=== PATIENT | male | born 1960 | race Caucasian/White ===

== ENCOUNTER 2022-02-13 09:03 | Inpatient (IN) ==
[2022-02-13] MEDS ORDERED: IOPAMIDOL 100 ML BOTTLE IV ONE (09:04)
[2022-02-13] MEDS ORDERED: ONDANSETRON 4 MG/2 ML VIAL IV ONE (09:25)
[2022-02-13] MEDS ORDERED: PANTOPRAZOLE 40 MG VIAL IV ONE (09:25)
[2022-02-13] MEDS ORDERED: PHENobarb/HYOSCY/ATROPINE/SCOP 1 DOSE BOTTLE PO ONE (09:25)
[2022-02-13] MEDS ORDERED: LACTATED RINGERS 1,000 ML IV ONE (09:26)
[2022-02-13] MEDS ORDERED: 0.9 % SODIUM CHLORIDE 1,000 ML IV ONE (09:27)
[2022-02-13] MEDS ORDERED: LORazepam 2 MG/ML VIAL IV ONE ×2 (09:30→12:18)
--- NOTE | 2022-02-13 09:30 | Emergency Department Note ---
Nausea/Vomiting/Diarrhea HPI General Chief complaint: Nausea/Vomiting/Diarrhea Stated complaint: N/V Time Seen by Provider: 02/13/22 09:18 Source: patient Mode of arrival: ambulatory History of Present Illness HPI Narrative: Narrative: 61-year-old male history of GERD on omeprazole, alcohol dependence presenting to the ED with 3 days of watery nausea vomiting diarrhea. Thinks he may have eaten something bad. Nausea and vomiting have improved but mostly watery diarrhea. Not really abdominal pain although he says he was taken some ibuprofen recently for chronic back pain and he did momentarily have a bit of upper abdominal pain after that but has since resolved. Denies a history of hepatobiliary or pancreatic disease. Does have a history of hyponatremia as well as alcohol dependence. Says he drinks about 5 beers a day. He did drink yesterday. He says he does not feel like he is in any withdrawal. He does have mild baseline tremor but he says that is chronic and not new, he thinks it could be Parkinson's or something. He is here because the persistent diarrhea he feels a bit fatigued and perhaps dehydrated. Related Data Home Medications Medication Instructions Recorded Confirmed gabapentin 300 mg capsule 300 mg PO DAILY 01/16/15 01/18/22 omeprazole 40 mg capsule,delayed 40 mg PO DAILY 01/16/15 01/18/22 release (Prilosec) baclofen 10 mg tablet 1 tab PO QID 07/06/21 01/18/22 clonidine 0.1 mg/24 hr weekly 1 patch transdermal WEEKLY 07/06/21 01/18/22 transdermal patch hydroxyzine HCl 25 mg tablet 1 tab PO TID 07/06/21 01/18/22 hydroxyzine HCl 25 mg tablet 1 tab PO TID 07/06/21 01/18/22 irbesartan 300 mg tablet 1 tab PO QDAY 07/06/21 01/18/22 ketorolac 30 mg/mL (1 mL) 60 mg IM PRN PRN Pain 07/06/21 01/18/22 injection solution labetalol 100 mg tablet 1 tab PO BID 07/06/21 01/18/22 ondansetron 4 mg disintegrating 1 tab PO Q6HP PRN Nausea 07/06/21 01/18/22 tablet oxycodone 10 mg tablet 1 tab PO BID 07/06/21 01/18/22 testosterone cypionate 200 mg/mL 0.5 ml IM WEEKLY 07/06/21 01/18/22 intramuscular oil triamcinolone acetonide 0.1 % 0.1 applic topical BID 07/06/21 01/18/22 topical cream duloxetine 60 mg capsule,delayed 60 mg PO QDAY 01/12/22 01/18/22 release (Cymbalta) Allergies Allergy/AdvReac Type Severity Reaction Status Date / Time No Known Drug Allergies Allergy Verified 01/12/22 08:45 Review of Systems ROS ROS Narrative: Narrative: All systems ED: reviewed and negative except as stated. [facility] Narrative Patient History Narrative: Narrative: Medical/Surgical/Family History All Active Problems (Updated 02/13/22 @ 12:33 by Freddy Ferreira DO) Acute hyponatremia (Acute) Alcohol withdrawal (Acute) Leukocytosis (Acute) Acute dehydration (Acute) Lumbar radiculopathy (Acute) Cervical spondylosis with radiculopathy (Chronic) DDD (degenerative disc disease), lumbosacral (Chronic) Lumbar stenosis with neurogenic claudication (Chronic) GERD (gastroesophageal reflux disease) (Chronic) Osteoarthritis of more than one site (Chronic) Bronchitis (Chronic) Psychiatric illness (Chronic) Vision problem (Chronic) Pneumonia (Chronic) Neck injury (Chronic) Headache (Chronic) Hearing problem (Chronic) Depression (Chronic) Concussion (Chronic) Essential hypertension (Chronic) Hypogonadism (Chronic) Posttraumatic stress disorder (Chronic) Arthritis (Chronic) Idiopathic peripheral neuropathy (Chronic) Normocytic anemia (Chronic) Chronic pain (Chronic) Community acquired pneumonia (Acute) Sepsis (Acute) Severe sepsis with acute organ dysfunction (Acute) Anxiety (Acute) Alcohol withdrawal (Acute) Acute hyponatremia (Acute) Medical History Anxiety Arthritis Bronchitis Cervical spondylosis with radiculopathy Chronic pain Community acquired pneumonia Concussion DDD (degenerative disc disease), lumbosacral Depression Essential hypertension GERD (gastroesophageal reflux disease) Headache Hearing problem Hypogonadism Idiopathic peripheral neuropathy Lumbar radiculopathy Lumbar stenosis with neurogenic claudication Neck injury Normocytic anemia Osteoarthritis of more than one site Pneumonia Posttraumatic stress disorder Psychiatric illness Sepsis Severe sepsis with acute organ dysfunction Vision problem Surgical History History of knee surgery right ACL/PCL reconstruction History of lumbar surgery discectomy x2 Family History Mother Atrial flutter Hypertension Father Heart disease Hypertension Social History Smoking Status: Never smoker and Smokeless tobacco Alcohol Intake Frequency: 2+ drinks per day Substance Use: does not use Exam Narrative Narrative: Narrative: Constitutional: normally developed, hypertensive, tachycardic but nontoxic-appearing Head: Normocephalic, atraumatic, Eyes: No Icterus, ENT: Dry mucus membranes, no tongue fasciculations Neck: Supple, Cardiac: Normal heart sounds, palpable radial pulses, Pulmonary: Normal respiratory effort. Breath sounds clear, no wheeze, rhonchi, rales, Gastrointestinal: Abdomen soft, non-distended, non-tender, negative Cardenas's Musculoskeletal: No gross deformities, well perfused Skin: warm, dry Neuro: Alert and oriented, mild hand tremors Course Vital Signs Vital signs: Vital Signs Temperature 36.2 C 02/13/22 09:08 Pulse Rate 122 H 02/13/22 09:08 Respiratory Rate 20 02/13/22 09:08 Blood Pressure 176/112 02/13/22 09:08 Pulse Oximetry (%) 100 02/13/22 09:08 Oxygen Delivery Method 02/13/22 09:08 Temperature 36.2 C 02/13/22 09:08 Pulse Rate 111 H 02/13/22 10:41 Respiratory Rate 20 02/13/22 09:08 Blood Pressure 168/120 02/13/22 10:31 Pulse Oximetry (%) 98 02/13/22 10:41 Oxygen Delivery Method 02/13/22 09:08 [facility] MDM Narrative Medical decision making narrative: Narrative: Patient with 3 days of watery nausea vomiting diarrhea, nausea vomiting mostly resolved persistent diarrhea. Appears bit dehydrated tachycardic. Work-up is initiated Does have alcohol dependence about 5 beers a day, did not drink today because of his GI symptoms. He is bit hypertensive tachycardic although not distressed. Does have mild tremors although he says those are chronic and unrelated and does not feel like he is in withdrawal, will give him 1 mg of Ativan in the meantime. Give him 1 L normal saline for tachycardia dehydration while awaiting ER work- up Did get EKG given his tachycardia, twelve-lead EKG sinus tachycardic 115 AK, QRS, QTc within normal, he has Q waves in inferior and precordial no evidence of acute ischemia or STEMI criteria Labs do show leukocytosis nonspecific at this point has been intermittently elevated in the past, Electrolytes show a acute hyponatremia 111 with a sodium of 72, normal anion gap normal renal function. LFTs bilirubin within normal, lipase slightly elevated 78 CT of the abdomen per radiology shows a small gallstone but no evidence of acute process or cholecystitis Urinalysis no infection Reevaluation patient feels a bit better, heart rate improved. Does warrant admission given his acute hyponatremia, he has had no neurologic symptoms or seizure-like activity here in the ER. Will speak with hospitalist Additionally although he has leukocytosis do not see any signs or symptoms suggestive of acute bacterial infection at this time do not feel antibiotics indicated at this time 1230: Received callback from hospitalist, accepts admission. Additionally patient says he was starting to feel slightly tremulous again so gave him 1 more milligram of Ativan. Critical Care Time Total CriticalCare time was at least 35 minutes, excluding separately reportable procedures. There was a high probability of clinically significant/life threatening deterioration in the patient's condition which required my urgent intervention. Lab Data Result diagrams: 02/13/22 09:29 02/13/22 09:29 Labs: Lab Results 02/13/22 02/13/22 02/13/22 Range/Units 09:29 09:29 11:40 WBC 18.8 H (4.5-11.0) K/mcL RBC 4.38 L (4.63-6.08) M/mcL Hgb 14.1 (13.7-17.5) g/dL Hct 36.5 L (40.1-51.0) % MCV 80.9 (80.0-100.0) fL MCH 29.2 (26.0-34.0) pg MCHC 36.1 H (31.0-36.0) g/dL RDW 12.7 (11.5-14.5) % Plt Count 298 (140-440) K/mcL MPV 9.5 (8.8-12.5) fL Immature Gran % (Auto) 1.2 H (0.0-0.5) % Neut % (Auto) 83.1 H (38.0-78.0) % Lymph % (Auto) 7.9 L (15.5-49.0) % [place] % (Auto) 6.7 (1.0-12.0) % Eos % (Auto) 0.6 (0.0-7.0) % Baso % (Auto) 0.5 (0.0-2.0) % Lymph # (Auto) 1.48 L (1.50-4.80) K/mcL [place] # (Auto) 1.26 H (0.10-0.90) K/mcL Eos # (Auto) 0.11 (0.00-0.70) K/mcL Baso # (Auto) 0.09 (0.00-0.30) K/mcL Immature Gran # 0.23 H (0.00-0.05) K/mcl Absolute Neutrophils 15.63 H (1.80-8.00) K/mcL Sodium 111 L* (133-145) mmol/L Potassium 3.4 (3.3-5.1) mmol/L Chloride 72 L (96-108) mmol/L Carbon Dioxide 28 (22-30) mmol/L Anion Gap 11.0 (8.0-16.0) BUN 3 L (8-23) mg/dL Creatinine 0.9 (0.7-1.2) mg/dL GFR Calculation 92 Glucose 133 H (70-105) mg/dL Calcium 9.0 (8.6-10.4) mg/dL Total Bilirubin 0.4 (0.1-1.0) mg/dL AST 22 (<40) U/L ALT 19 (<40) U/L Alkaline Phosphatase 164 H (39-117) U/L Total Protein 6.8 (5.9-8.4) gm/dL Albumin 4.5 (3.2-5.2) gm/dL Globulin 2.3 (2.2-3.7) gm/dL Albumin/Globulin Ratio 2.0 (1.0-2.3) Lipase 78 H (7-60) U/L Urine Color Lt. yellow Urine Appearance Clear (Clear) Urine pH 7.0 (5.0-9.0) Ur Specific [place] <= 1.005 (1.000-1.035) Urine Protein Negative (Negative) mg/dL Urine Glucose (UA) Negative (Negative) mg/dL Urine Ketones Negative (Negative) mg/dL Urine Occult Blood Negative (Negative) froilan/mcL Urine Nitrate Negative (Negative) Urine Bilirubin Negative (Negative) mg/dL Urine Urobilinogen Normal mg/dL Ur Leukocyte Esterase Negative (Negative) /uL Ur Culture Indicated? No Discharge Plan Patient/Caregiver Discharge Instructions Pt seen by [employer]EDER/PA only: No Clinical Impression: Acute hyponatremia, Alcohol withdrawal, Leukocytosis, Acute dehydration Instructions: Hyponatremia (ED) Patient Disposition: Xfer As Inpt ([facility]) Condition: Serious Follow up with: Alberto Morris DO [Primary Care Provider] - Prescriptions: No Action omeprazole [Prilosec] 40 MG capsule,delayed release(DR/EC) 40 mg PO DAILY gabapentin 300 MG capsule 300 mg PO DAILY Rx Instructions: 300mg QAM and 600mg QHS duloxetine [Cymbalta] 60 mg capsule,delayed release(DR/EC) 60 mg PO QDAY clonidine 0.1 mg/24 hr patch weekly 1 patch transdermal WEEKLY triamcinolone acetonide 0.1 % cream 0.1 applic topical BID ketorolac 30 mg/mL (1 mL) solution 60 mg IM PRN PRN (Reason: Pain) Rx Instructions: Inject IM twice weekly as directed baclofen 10 mg tablet 1 tab PO QID hydroxyzine HCl 25 mg tablet 1 tab PO TID hydroxyzine HCl 25 mg tablet 1 tab PO TID testosterone cypionate 200 mg/mL oil 0.5 ml IM WEEKLY labetalol 100 mg tablet 1 tab PO BID ondansetron 4 mg tablet,disintegrating 1 tab PO Q6HP PRN (Reason: Nausea) irbesartan 300 mg tablet 1 tab PO QDAY oxycodone 10 mg tablet 1 tab PO BID
[2022-02-13 10:38] LABS: Basophils # (Auto) 0.09 K/mcL (0.00-0.30); Basophils % (Auto) 0.5 % (0.0-2.0); Eosinophils # (Auto) 0.11 K/mcL (0.00-0.70); Eosinophils % (Auto) 0.6 % (0.0-7.0); Hematocrit 36.5 % (40.1-51.0); Hemoglobin 14.1 g/dL (13.7-17.5); Lymphocytes # (Auto) 1.48 K/mcL (1.50-4.80); Lymphocytes % (Auto) 7.9 % (15.5-49.0); Mean Cell Volume 80.9 fL (80.0-100.0); Mean Corpuscular HGB Conc 36.1 g/dL (31.0-36.0); Mean Platelet Volume 9.5 fL (8.8-12.5); Monocytes # (Auto) 1.26 K/mcL (0.10-0.90); Monocytes % (Auto) 6.7 % (1.0-12.0); Neutrophils % (Auto) 83.1 % (38.0-78.0); Platelet Count 298 K/mcL (140-440); RBC 4.38 M/mcL (4.63-6.08); Red Cell Distribution Width 12.7 % (11.5-14.5); WBC 18.8 K/mcL (4.5-11.0)
[2022-02-13 10:39] LABS: ALT/SGPT 19 U/L (<40); AST/SGOT 22 U/L (<40); Albumin 4.5 gm/dL (3.2-5.2); Alkaline Phosphatase 164 U/L (39-117); Bilirubin,Total 0.4 mg/dL (0.1-1.0); Blood Urea Nitrogen 3 mg/dL (8-23); Carbon Dioxide 28 mmol/L (22-30); Chloride 72 mmol/L (96-108); Globulin 2.3 gm/dL (2.2-3.7); Glomerular Filtration Rate 92; Glucose 133 mg/dL (70-105)
[2022-02-13 12:21] LABS: Appearance,Urine CLEAR (Clear); Bilirubin,Urine NEGATIVE (Negative); Color,Urine LT. YELLOW; Culture Indicated,Urine No; Glucose,Urine (UA) NEGATIVE (Negative); Ketones,Urine NEGATIVE (Negative); Leukocyte Esterase,Urine NEGATIVE /uL (Negative); Nitrate,Urine NEGATIVE (Negative); Protein,Urine NEGATIVE (Negative); Specific Gravity,Urine <= 1.005 (1.000-1.035); Urine Blood NEGATIVE ery/mcL (Negative); Urobilinogen,Urine Normal
--- NOTE | 2022-02-13 12:58 | Internal Med History&Physical ---
HPI History of Present Illness Patient information: Note initiated : 02/13/22 at 12:50 pm Service Date, if different from initiated Date: [] Patient: Chau Salter 61 y/o M admitted on for N/V. Chief Complaint: [] History of present illness: Mr. Salter is a 61-year-old male with a history of hypertension, depression, PTSD, GERD, degenerative disc disease, chronic back pain, high risk alcohol use Who presented to the emergency department for 3 days of nausea, vomiting and diarrhea. Patient says that the nausea and vomiting have mostly resolved but he continues to have profound watery diarrhea. He denies recent fevers chills, no sick contacts. The patient did have some mild abdominal discomfort but says that has resolved. The patient does drink 6 or more beers per day. In the emergency department, the patient was found to have a sodium level of 111. A CT abdomen pelvis with contrast was performed, report pending at the time of admission however the ED provider did receive a verbal report from the radiologist who said that it showed a gallstone but no evidence of cholecystitis and was otherwise unremarkable. Patient denies recent antibiotic use however in November 2021 he did have an upper respiratory tract infection that was treated with amoxicillin. Review of systems Constitutional: no fever, fatigue, or weight loss Eyes: no vision changes or pain Cardiovascular: no chest pain, no palpitations Respiratory: no cough or dyspnea Gastrointestinal: Positive for nausea, vomiting, diarrhea Genitourinary: no dysuria or difficulty voiding Musculoskeletal: no arthralgia or myalgia Integumentary: no skin lesion or wound Neurological: no focal weakness or numbness Psychiatric: no anxiety or depression Physical exam Head: Atraumatic, normal inspection. Eyes: normal appearance, no scleral icterus. Neck: full ROM Respiratory: no respiratory distress. Cardiovascular: Regular tachycardia, S1, S2. GI/Abdominal: soft, nontender, no guarding. Extremities: full range of motion, nontender. Neurological: CN II-XII intact, intact motor, intact sensation. Psychiatric: normal mood. Skin: warm, normal color PFSH PFSH All Active Problems (Updated 02/13/22 @ 12:33 by Freddy Ferreira DO) Acute hyponatremia (Acute) Alcohol withdrawal (Acute) Leukocytosis (Acute) Acute dehydration (Acute) Lumbar radiculopathy (Acute) Cervical spondylosis with radiculopathy (Chronic) DDD (degenerative disc disease), lumbosacral (Chronic) Lumbar stenosis with neurogenic claudication (Chronic) GERD (gastroesophageal reflux disease) (Chronic) Osteoarthritis of more than one site (Chronic) Bronchitis (Chronic) Psychiatric illness (Chronic) Vision problem (Chronic) Pneumonia (Chronic) Neck injury (Chronic) Headache (Chronic) Hearing problem (Chronic) Depression (Chronic) Concussion (Chronic) Essential hypertension (Chronic) Hypogonadism (Chronic) Posttraumatic stress disorder (Chronic) Arthritis (Chronic) Idiopathic peripheral neuropathy (Chronic) Normocytic anemia (Chronic) Chronic pain (Chronic) Community acquired pneumonia (Acute) Sepsis (Acute) Severe sepsis with acute organ dysfunction (Acute) Anxiety (Acute) Alcohol withdrawal (Acute) Acute hyponatremia (Acute) Medical History Anxiety Arthritis Bronchitis Cervical spondylosis with radiculopathy Chronic pain Community acquired pneumonia Concussion DDD (degenerative disc disease), lumbosacral Depression Essential hypertension GERD (gastroesophageal reflux disease) Headache Hearing problem Hypogonadism Idiopathic peripheral neuropathy Lumbar radiculopathy Lumbar stenosis with neurogenic claudication Neck injury Normocytic anemia Osteoarthritis of more than one site Pneumonia Posttraumatic stress disorder Psychiatric illness Sepsis Severe sepsis with acute organ dysfunction Vision problem Surgical History History of knee surgery right ACL/PCL reconstruction History of lumbar surgery discectomy x2 Family History Mother Atrial flutter Hypertension Father Heart disease Hypertension Social History (Updated 01/12/22 @ 16:05 by Emma Koehler) marital status: education level: college occupational status: disabled smoking status: Never smoker and Smokeless tobacco alcohol intake frequency: 2+ drinks per day substance use type: does not use MEDS/ALLERGIES Home Medications and Allergies Home Medications Medication Instructions Recorded Confirmed Type gabapentin 300 mg capsule 300 mg PO DAILY 01/16/15 02/13/22 History omeprazole 40 mg capsule,delayed 40 mg PO DAILY 01/16/15 02/13/22 History release (Prilosec) baclofen 10 mg tablet 1 tab PO QID 07/06/21 02/13/22 History clonidine 0.1 mg/24 hr weekly 1 patch transdermal WEEKLY 07/06/21 02/13/22 History transdermal patch hydroxyzine HCl 25 mg tablet 1 tab PO TID 07/06/21 02/13/22 History irbesartan 300 mg tablet 1 tab PO QDAY 07/06/21 02/13/22 History ketorolac 30 mg/mL (1 mL) 60 mg IM PRN PRN Pain 07/06/21 02/13/22 History injection solution labetalol 100 mg tablet 1 tab PO BID 07/06/21 02/13/22 History ondansetron 4 mg disintegrating 1 tab PO Q6HP PRN Nausea 07/06/21 02/13/22 History tablet oxycodone 10 mg tablet 1 tab PO BID 07/06/21 02/13/22 History testosterone cypionate 200 mg/mL 0.5 ml IM WEEKLY 07/06/21 02/13/22 History intramuscular oil triamcinolone acetonide 0.1 % 0.1 applic topical BID 07/06/21 02/13/22 History topical cream duloxetine 60 mg capsule,delayed 60 mg PO QDAY 01/12/22 02/13/22 History release (Cymbalta) Allergies Allergy/AdvReac Type Severity Reaction Status Date / Time No Known Drug Allergies Allergy Verified 01/12/22 08:45 EXAM Constitutional Vitals: Temp Pulse Resp BP Pulse Ox O2 Del Method 97.2 F 111 H 20 168/120 98 02/13/22 09:08 02/13/22 10:41 02/13/22 09:08 02/13/22 10:31 02/13/22 10:41 02/13/22 09:08 DATA Data Completed and Pending Labs: Labs from last 24 hours 02/13/22 02/13/22 02/13/22 11:40 09:29 09:29 WBC 18.8 H RBC 4.38 L Hgb 14.1 Hct 36.5 L MCV 80.9 MCH 29.2 MCHC 36.1 H RDW 12.7 Plt Count 298 MPV 9.5 Immature Gran % (Auto) 1.2 H Neut % (Auto) 83.1 H Lymph % (Auto) 7.9 L [place] % (Auto) 6.7 Eos % (Auto) 0.6 Baso % (Auto) 0.5 Lymph # (Auto) 1.48 L [place] # (Auto) 1.26 H Eos # (Auto) 0.11 Baso # (Auto) 0.09 Immature Gran # 0.23 H Absolute Neutrophils 15.63 H Sodium 111 L* Potassium 3.4 Chloride 72 L Carbon Dioxide 28 Anion Gap 11.0 BUN 3 L Creatinine 0.9 GFR Calculation 92 Glucose 133 H Calcium 9.0 Total Bilirubin 0.4 AST 22 ALT 19 Alkaline Phosphatase 164 H Total Protein 6.8 Albumin 4.5 Globulin 2.3 Albumin/Globulin Ratio 2.0 Lipase 78 H Urine Color Lt. yellow Urine Appearance Clear Urine pH 7.0 Ur Specific [place] <= 1.005 Urine Protein Negative Urine Glucose (UA) Negative Urine Ketones Negative Urine Occult Blood Negative Urine Nitrate Negative Urine Bilirubin Negative Urine Urobilinogen Normal Ur Leukocyte Esterase Negative Ur Culture Indicated? No A/P Narrative A/P Narrative: Assessment: 61-year-old male with a history of hypertension, depression, PTSD, GERD, degenerative disc disease, chronic back pain, high risk alcohol use admitted for severe hyponatremia occurring in the setting of nausea, vomiting and watery diarrhea. The patient says that the nausea and vomiting have mostly resolved but he continues to have diarrhea. #Severe hyponatremia probably secondary to alcohol use and diarrhea #Watery diarrhea #High risk alcohol use #Essential hypertension #Depression #PTSD #GERD #Degenerative disc disease #Chronic back pain #Tobacco use Plan -IV fluid with normal saline. -Trend sodium, avoid correction greater than 8 mmol/L per 24 hours. -Serum osmolality, urine osmolality, urine sodium. -Screen for C. difficile, if negative start Imodium as needed. -CIWA protocol with Ativan IV as needed. -Vitamin supplementation. -Follow-up pending CT abdomen pelvis report. -Nicotine replacement. -Home medication reconciliation, continue important meds. -DVT prophylaxis: Lovenox -CODE STATUS: DNR/DNI -Disposition: Home when stable. Time Spent With Patient Time: Total time spent is greater than 50% in coordination of care (as documented) at patient's floor/unit and/or counseling patient:
[2022-02-13] MEDS ORDERED: SENNOSIDES 1 TABLET PO PRN (13:16)
[2022-02-13] MEDS ORDERED: HYDROcodone/APAP 5/325MG TABLET PO PRN (13:16)
[2022-02-13] MEDS ORDERED: ALBUTEROL SULFATE 2.5 MG/3 ML NEBULIZER NEB PRN (13:16)
[2022-02-13] MEDS ORDERED: 0.9 % SODIUM CHLORIDE 1,000 ML IV SCH (13:16)
[2022-02-13] MEDS ORDERED: LACTULOSE 20 GM/30 ML ORAL.SOL PO PRN (13:16)
[2022-02-13] MEDS ORDERED: ONDANSETRON 4 MG/2 ML VIAL IV PRN (13:16)
[2022-02-13] MEDS ORDERED: ACETAMINOPHEN 325 MG TABLET PO PRN (13:16)
[2022-02-13] MEDS: NICOTINE 21 MG PATCH TOPICAL SCH (13:34)
[2022-02-13] MEDS: 0.9 % SODIUM CHLORIDE 10 ML SYRINGE IV SCH ×4 (13:35→20:31)
[2022-02-13] MEDS ORDERED: KETOROLAC 15 MG/ML VIAL IV PRN (14:05)
[2022-02-13] MEDS ORDERED: NON FORMULARY MEDICATION 1 DOSE MISCELL (Oxycodone 10 MG) PO SCH (14:05)
[2022-02-13 14:22] LABS: Sodium, Urine Random 10 mmol/L
[2022-02-13 14:32] LABS: Osmolality,Urine 74 mOSM/kg (80-1000)
[2022-02-13] MEDS: hydrOXYzine 25 MG TABLET PO SCH ×2 (14:32→20:30)
[2022-02-13] MEDS: LOSARTAN 50 MG TABLET PO SCH (14:32)
[2022-02-13 14:42] LABS: Phosphorous 2.8 mg/dL (2.5-4.5)
[2022-02-13] MEDS ORDERED: oxyCODONE HCL 5 MG TABLET PO ONE (14:45)
[2022-02-13 14:47] LABS: ALT/SGPT 17 U/L (<40); AST/SGOT 18 U/L (<40); Albumin 4.1 gm/dL (3.2-5.2); Albumin/Globulin Ratio 1.9 (1.0-2.3); Alkaline Phosphatase 156 U/L (39-117); Bilirubin,Total 0.5 mg/dL (0.1-1.0); Blood Urea Nitrogen 3 mg/dL (8-23); Calcium 8.8 mg/dL (8.6-10.4); Carbon Dioxide 25 mmol/L (22-30); Chloride 77 mmol/L (96-108); Globulin 2.2 gm/dL (2.2-3.7); Glomerular Filtration Rate 92; Glucose 117 mg/dL (70-105)
--- NOTE | 2022-02-13 15:12 | Cat Scan Report ---
CLINICAL INFORMATION: Abdominal pain and nausea COMPARISON: Chest CT 02/07/2021 TECHNIQUE: Following enteric contrast, 80 cc of Isovue-[id number] were injected intravenously, and 60 seconds later, 0.625 mm helical slices were obtained from the mid heart through the subtrochanteric regions. Following reconstruction, 2.5 mm sagittal, coronal and axial reformatted images were processed and reviewed at bone, lung and soft tissue windows. Five minutes later, 0.625 mm helical slices were obtained from the mid heart through the kidneys and viewed at soft tissue windows.The exam was performed using radiation dose optimization techniques including, but not limited to, automated exposure control, adjustment of the mA and/or kV according to patient size and use of iterative reconstruction technique. FINDINGS: Left diaphragm is now moderately elevated-a new finding The lung bases bases show bronchiectasis in the segmental and subsegmental bronchi of the right lower lobe with scattered fibrosis. There are no effusions. The visualized heart is grossly normal. Abdominal images show a solitary 2 mm stone the gallbladder. The gallbladder is, otherwise, normal-no evidence of wall thickening or pericholecystic fluid. Intrahepatic and common bile ducts are normal caliber CBD is 6 mm. The liver, both kidneys, adrenal glands, spleen, pancreas and aorta, including aortic branches, are normal in size, configuration and attenuation without focal lesion. There is no free air, free fluid or adenopathy. Pelvic images show mild prostate enlargement with a transverse dimension 4 cm there is calcification in the central zone. Urinary bladder is moderately distended. Few sigmoid diverticula appreciated, but no evidence of diverticulitis. Medial pericecal appendix contains a tiny 1 mm appendicolith, but is otherwise normal-no evidence of appendicitis. Small bowel and stomach are grossly normal. Small periumbilical hernia contains only mesenteric fat. Small left inguinal hernia also contains only mesenteric fat. Bone windows show no focal osseous lesions. L4-5, moderate broad disc spur complex facet arthropathy results in moderate central canal and bilateral lateral recess and IV foraminal narrowing with exiting L4 and descending L5 nerve root impingement. At L5-S1 moderate broad disc protrusion left-sided asymmetry and facet arthropathy result in severe left and mild right IV foraminal narrowing impingement exiting left L5 nerve root. IMPRESSION: 1. No acute disease 2. Tiny solitary stone the gallbladder. Gallbladder and bile ducts otherwise normal. 3. Moderate elevation left diaphragm new from a chest CT one year prior. 4. Mild prostate enlargement with central calcifications. Urinary bladder is moderately distended which could indicate bladder outlet narrowing due to prostatism 5. Small umbilical and left inguinal hernias containing only mesenteric fat. 6. Moderate broad disc protrusion and facet arthropathy at L4-5 resulting in moderate central canal and bilateral lateral recess and IV foraminal narrowing with exiting L4 and descending L5 nerve root impingement. At L5-S1 more mild changes are present resulting in moderate left and mild right IV foraminal narrowing. Interpreted and Authenticated by: Elias Abarca 02/13/22
[2022-02-13] MEDS ORDERED: cloNIDine TTS 1 1 PATCH PATCH TD SCH (16:00)
[2022-02-13] MEDS: BACLOFEN 10 MG TABLET PO SCH ×2 (17:06→20:30)
[2022-02-13] MEDS ORDERED: POTASSIUM CHLORIDE 20 MEQ TABLET PO ONE (18:05)
[2022-02-13] MEDS ORDERED: LABETALOL 5 MG/ML ML IV PRN (18:07)
[2022-02-13] MEDS ORDERED: hydrALAZINE 20 MG/ML VIAL IV PRN (18:07)
[2022-02-13] MEDS: 0.9 % SODIUM CHLORIDE 1,000 ML IV SCH (19:00)
[2022-02-13] MEDS: LORazepam 2 MG/ML VIAL IV PRN ×3 (19:01→22:13)
[2022-02-13] MEDS: NICOTINE POLACRILEX 2 MG GUM CHEW/PARK PRN (19:17)
[2022-02-13] MEDS: BUDESONIDE FORMOTEROL INH SCH (20:30)
[2022-02-13] MEDS: GABAPENTIN 300 MG CAPSULE PO SCH (20:30)
[2022-02-13] MEDS: DOCUSATE SODIUM 100 MG CAPSULE PO SCH (20:30)
[2022-02-13] MEDS: LABETALOL 100 MG TABLET PO SCH (20:30)
[2022-02-13] MEDS: oxyCODONE HCL 5 MG TABLET PO SCH (20:31)
[2022-02-13] MEDS ORDERED: NON FORMULARY MEDICATION 1 DOSE MISCELL (Oxycodone 10 mg tablet) PO SCH (21:00)
[2022-02-13] MEDS ORDERED: amLODIPine 5 MG TABLET PO SCH (21:00)
[2022-02-13] MEDS ORDERED: oxyCODONE HCL 5 MG TABLET PO SCH (21:00)
[2022-02-14] MEDS: 0.9 % SODIUM CHLORIDE 1,000 ML IV SCH ×2 (00:34→07:28)
[2022-02-14] MEDS: 0.9 % SODIUM CHLORIDE 10 ML SYRINGE IV SCH ×6 (06:03→20:24)
[2022-02-14 06:50] LABS: ALT/SGPT 16 U/L (<40); AST/SGOT 15 U/L (<40); Albumin 3.8 gm/dL (3.2-5.2); Albumin/Globulin Ratio 1.6 (1.0-2.3); Alkaline Phosphatase 140 U/L (39-117); Bilirubin,Direct < 0.2 mg/dL (0-0.3); Bilirubin,Total 0.4 mg/dL (0.1-1.0); Blood Urea Nitrogen 6 mg/dL (8-23); Carbon Dioxide 26 mmol/L (22-30); Chloride 85 mmol/L (96-108); Globulin 2.4 gm/dL (2.2-3.7); Glomerular Filtration Rate 65; Glucose 119 mg/dL (70-105); Lactate Dehydrogenase 145 U/L (135-225); Phosphorous 2.9 mg/dL (2.5-4.5); Triglycerides 42 mg/dL (<150); Uric Acid 3.3 mg/dL (2.5-8.0)
[2022-02-14] MEDS ORDERED: DEXTROSE 5%-LR 1,000 ML IV SCH (07:45)
[2022-02-14] MEDS: OMEPRAZOLE 20 MG CAPSULE PO SCH (08:05)
[2022-02-14] MEDS: LOSARTAN 50 MG TABLET PO SCH (08:10)
[2022-02-14] MEDS: DOCUSATE SODIUM 100 MG CAPSULE PO SCH ×2 (08:10→20:08)
[2022-02-14] MEDS: hydrOXYzine 25 MG TABLET PO SCH ×3 (08:10→20:08)
[2022-02-14] MEDS: FOLIC ACID 1 MG TABLET PO SCH (08:11)
[2022-02-14] MEDS: ENOXAPARIN 40 MG/0.4 ML SYRINGE SQ SCH (08:11)
[2022-02-14] MEDS: BACLOFEN 10 MG TABLET PO SCH ×4 (08:11→20:08)
[2022-02-14] MEDS: GABAPENTIN 300 MG CAPSULE PO SCH ×2 (08:11→20:08)
[2022-02-14] MEDS: DULoxetine 30 MG CAPSULE PO SCH (08:11)
[2022-02-14] MEDS: oxyCODONE HCL 5 MG TABLET PO SCH ×3 (08:12→20:09)
[2022-02-14] MEDS: LABETALOL 100 MG TABLET PO SCH ×2 (08:12→20:08)
[2022-02-14] MEDS: THIAMINE 100 MG TABLET PO SCH (08:12)
[2022-02-14] MEDS: BUDESONIDE FORMOTEROL INH SCH ×2 (08:12→20:09)
[2022-02-14] MEDS ORDERED: HYDROCHLOROTHIAZIDE 12.5 MG CAPSULE PO SCH (09:00)
[2022-02-14] MEDS ORDERED: NON FORMULARY MEDICATION 1 DOSE MISCELL (Budesonide-Formoterol [Symbicort] 160-4.5 mcg/act INHALATION SCH (09:00)
[2022-02-14] MEDS ORDERED: cloNIDine TTS 1 1 PATCH PATCH TD SCH (09:00)
[2022-02-14] MEDS ORDERED: NON FORMULARY MEDICATION 1 DOSE MISCELL (Esomeprazole Magnesium 40 mg capsule,delayed rele PO SCH (09:00)
[2022-02-14] MEDS: LORazepam 2 MG/ML VIAL IV PRN (09:42)
[2022-02-14] MEDS: NICOTINE 21 MG PATCH TOPICAL SCH (09:42)
[2022-02-14 13:14] LABS: ALT/SGPT 14 U/L (<40); AST/SGOT 14 U/L (<40); Albumin 3.8 gm/dL (3.2-5.2); Alkaline Phosphatase 132 U/L (39-117); Bilirubin,Total 0.5 mg/dL (0.1-1.0); Blood Urea Nitrogen 7 mg/dL (8-23); Calcium 8.8 mg/dL (8.6-10.4); Carbon Dioxide 25 mmol/L (22-30); Chloride 87 mmol/L (96-108); Globulin 1.9 gm/dL (2.2-3.7); Glomerular Filtration Rate 81; Glucose 145 mg/dL (70-105)
[2022-02-14] MEDS: DEXTROSE 5%-LR 1,000 ML IV SCH ×3 (14:12→19:47)
--- NOTE | 2022-02-14 15:05 | Internal Med Progress Note ---
SUBJECTIVE Subjective Patient information: Note initiated : 02/14/22 at 2:59 pm Service Date, if different from initiated Date: [] Patient: Chau Salter 61 y/o M admitted on 02/13/22 for N/V. Chief Complaint: [] Interval history: Mr. Salter is a 61-year-old male with a history of hypertension, depression, PTSD, GERD, degenerative disc disease, chronic back pain, high risk alcohol use Who presented to the emergency department for 3 days of nausea, vomiting and diarrhea. Patient says that the nausea and vomiting have mostly resolved but he continues to have profound watery diarrhea. He denies recent fevers chills, no sick contacts. The patient did have some mild abdominal discomfort but says that has resolved. The patient does drink 6 or more beers per day. In the emergency department, the patient was found to have a sodium level of 111. A CT abdomen pelvis with contrast was performed, report pending at the time of admission however the ED provider did receive a verbal report from the radiologist who said that it showed a gallstone but no evidence of cholecystitis and was otherwise unremarkable. Patient denies recent antibiotic use however in November 2021 he did have an upper respiratory tract infection that was treated with amoxicillin. 02/14 Tachycardic overnight, likely secondary to alcohol withdrawal. Sodium increased to 120 this morning then 123. Started D5 IV to slow sodium correction, will continue to follow sodium. Urine sodium was 10, urine osmolality 74. CIWA score 13 this morning. Patient receiving Ativan IV per CIWA score. C. difficile toxin was negative, started Imodium as needed for diarrhea. Physical exam Head: Atraumatic, normal inspection. Eyes: normal appearance, no scleral icterus. Neck: full ROM Respiratory: no respiratory distress. Cardiovascular: Regular tachycardia, S1, S2. GI/Abdominal: soft, nontender, no guarding. Extremities: full range of motion, nontender. Neurological: CN II-XII intact, intact motor, intact sensation. Psychiatric: normal mood. Skin: warm, normal color Constitutional Vitals: Vital Signs Temp Pulse Resp BP Pulse Ox O2 Del Method 98.1 F 110 H 19 106/67 98 02/14/22 12:00 02/14/22 13:35 02/14/22 12:00 02/14/22 12:00 02/14/22 12:00 02/14/22 10:00 Period Temp Pulse Resp BP Sys/Erazo Pulse Ox O2 Del Method O2 Flow Rate Last 24 Hr 97.9 F-98.8 F 94-126 12-23 106-183/67-125 91-100 Room Air-Room Air Intake and Output 02/14/22 02/14/22 02/14/22 03:59 11:59 19:59 Intake Total 640 1656 642 Output Total 725 150 Balance -85 1506 642 Weight 82.826 kg Intake & Output: Intake & Output 02/14/22 02/14/22 02/14/22 03:59 11:59 19:59 Intake Total 640 1656 642 Output Total 725 150 Balance -85 1506 642 Weight 82.826 kg Intake: IV 420 536 642 Sodium Chloride 0.9% 1,000 ml @ 420 536 75 mls/hr IV .[id number] [facility] Rx#: [id number] Dextrose 5%-Lactated Ringers 1, 642 000 ml @ 100 mls/hr IV .Q10H [facility] Rx#:[id number] Oral 220 1120 Output: Void Amount 725 150 Other: Meal Breakfast Percent of Meal Consumed Sleeping Feeding Ability Assist with Tray Set Up Urine Appearance Clear Clear Urine Color Pale Yellow Urine Odor Normal OBJ DATA Labs CBC & Chem 7: 02/13/22 09:29 02/14/22 12:15 Labs: Abnormal Lab Results 02/14/22 02/14/22 02/13/22 12:15 05:32 19:20 WBC RBC Hct MCHC Immature Gran % (Auto) Neut % (Auto) Lymph % (Auto) Lymph # (Auto) [place] # (Auto) Immature Gran # Absolute Neutrophils Sodium 123 L 120 L 113 L* Potassium Chloride 87 L 85 L BUN 7 L 6 L Glucose 145 H 119 H Osmolality Alkaline Phosphatase 132 H 140 H Total Protein 5.7 L Globulin 1.9 L Lipase Urine Osmolality 02/13/22 02/13/22 02/13/22 13:43 11:40 09:29 WBC RBC Hct MCHC Immature Gran % (Auto) Neut % (Auto) Lymph % (Auto) Lymph # (Auto) [place] # (Auto) Immature Gran # Absolute Neutrophils Sodium 114 L* 111 L* Potassium 3.2 L Chloride 77 L 72 L BUN 3 L 3 L Glucose 117 H 133 H Osmolality 243 L Alkaline Phosphatase 156 H 164 H Total Protein Globulin Lipase 78 H Urine Osmolality 74 L 02/13/22 09:29 WBC 18.8 H RBC 4.38 L Hct 36.5 L MCHC 36.1 H Immature Gran % (Auto) 1.2 H Neut % (Auto) 83.1 H Lymph % (Auto) 7.9 L Lymph # (Auto) 1.48 L Williams # (Auto) 1.26 H Immature Gran # 0.23 H Absolute Neutrophils 15.63 H Sodium Potassium Chloride BUN Glucose Osmolality Alkaline Phosphatase Total Protein Globulin Lipase Urine Osmolality Meds: Medications Acetaminophen (Acetaminophen 325 Mg Tablet) 650 mg PO Q6HP PRN; Protocol PRN Reason: Per Pain Protocol/Fever > 101 Albuterol Sulfate (Albuterol Sulfate 2.5 Mg/3 Ml Nebulizer) 2.5 mg NEB Q2HP PRN PRN Reason: Shortness Of Breath Amlodipine Besylate (Amlodipine 5 Mg Tablet) 5 mg PO HS [facility] Last Admin: 02/13/22 20:31 Dose: 5 mg Baclofen (Baclofen 10 Mg Tablet) 10 mg PO QID [facility] Last Admin: 02/14/22 12:54 Dose: 10 mg Clonidine HCl (Clonidine Tts 1 1 Patch Patch) 1 patch TD WEEKLY [facility] Last Admin: 02/13/22 15:46 Dose: 1 patch Docusate Sodium (Docusate Sodium 100 Mg Capsule) 100 mg PO BID [facility] Last Admin: 02/14/22 08:10 Dose: Not Given Duloxetine HCl (Duloxetine 30 Mg Capsule) 60 mg PO DAILY [facility] Last Admin: 02/14/22 08:11 Dose: 60 mg Enoxaparin Sodium (Enoxaparin 40 Mg/0.4 Ml Syringe) 40 mg SQ DAILY [facility] Last Admin: 02/14/22 08:11 Dose: 40 mg Folic Acid (Folic Acid 1 Mg Tablet) 1 mg PO DAILY [facility] Last Admin: 02/14/22 08:11 Dose: 1 mg Gabapentin (Gabapentin 300 Mg Capsule) 300 mg PO DAILY [facility] Last Admin: 02/14/22 08:11 Dose: 300 mg Gabapentin (Gabapentin 300 Mg Capsule) 600 mg PO HS [facility] Last Admin: 02/13/22 20:30 Dose: 600 mg Hydralazine HCl (Hydralazine 20 Mg/Ml Vial) 20 mg IV Q4-6HP PRN PRN Reason: Hypertension Last Admin: 02/14/22 05:42 Dose: 20 mg Hydrochlorothiazide (Hydrochlorothiazide 12.5 Mg Capsule) 12.5 mg PO DAILY [facility] Last Admin: 02/14/22 08:11 Dose: 12.5 mg Hydroxyzine HCl (Hydroxyzine 25 Mg Tablet) 25 mg PO TID [facility] Last Admin: 02/14/22 08:10 Dose: 25 mg Dextrose/Lactated Ringer's (Dextrose 5%-Lactated Ringers) 1,000 mls @ 150 mls/hr IV .Q6H40M [facility] Last Admin: 02/14/22 14:12 Dose: Not Given Ketorolac Tromethamine (Ketorolac 15 Mg/Ml Vial) 15 mg IV Q6HP PRN PRN Reason: Pain Stop: 02/15/22 14:02 Last Admin: 02/13/22 14:32 Dose: 15 mg Labetalol HCl (Labetalol 100 Mg Tablet) 100 mg PO BID [facility] Last Admin: 02/14/22 08:12 Dose: 100 mg Labetalol HCl (Labetalol 5 Mg/Ml Ml) 10 mg IV Q10M PRN PRN Reason: Hypertension Lactulose (Lactulose 20 Gm/30 Ml Oral.Nitza) 10 gm PO DAILYP PRN PRN Reason: Constipation Loperamide HCl (Loperamide 2 Mg Capsule) 2 mg PO PRN PRN PRN Reason: Diarrhea Lorazepam (Lorazepam 2 Mg/Ml Vial) 0 mg IV UD PRN; Protocol PRN Reason: Alcohol Withdrawal/Assess CIWA Last Admin: 02/14/22 09:42 Dose: 2 mg Losartan Potassium (Losartan 50 Mg Tablet) 100 mg PO DAILY [facility] Last Admin: 02/14/22 08:10 Dose: 100 mg Nicotine (Nicotine 21 Mg Patch) 21 mg TOPICAL DAILY@1000 [facility] Last Admin: 02/14/22 09:42 Dose: 21 mg Nicotine Polacrilex (Nicotine Polacrilex 2 Mg Gum) 2 mg CHEW/PARK Q4HP PRN PRN Reason: nicotine withdrawal Last Admin: 02/13/22 19:17 Dose: 2 mg Omeprazole (Omeprazole 20 Mg Capsule) 40 mg PO ACB [facility] Last Admin: 02/14/22 08:05 Dose: 40 mg Ondansetron HCl (Ondansetron 4 Mg/2 Ml Vial) 4 mg IV Q4HP PRN; Protocol PRN Reason: Nausea And Vomiting Oxycodone HCl (Oxycodone Hcl 5 Mg Tablet) 10 mg PO TID [facility]; Protocol Last Admin: 02/14/22 08:12 Dose: 10 mg Budesonide- Formoterol 160-4.5 Mcg/Actuation Hfa Inhaler 1 dose INH BID [facility] Last Admin: 02/14/22 08:12 Dose: Not Given Senna (Sennosides 1 Tablet) 2 tab PO HSP PRN PRN Reason: Constipation Sodium Chloride (0.9 % Sodium Chloride 10 Ml Syringe) 10 ml IV Q8 [facility] Last Admin: 02/14/22 12:54 Dose: Not Given Sodium Chloride (0.9 % Sodium Chloride 10 Ml Syringe) 10 ml IV Q8 [facility] Last Admin: 02/14/22 12:54 Dose: Not Given Thiamine HCl (Thiamine 100 Mg Tablet) 100 mg PO QDAY [facility] Last Admin: 02/14/22 08:12 Dose: 100 mg A/P Narrative A/P Narrative: Assessment: 61-year-old male with a history of hypertension, depression, PTSD, GERD, degenerative disc disease, chronic back pain, high risk alcohol use admitted for severe hyponatremia occurring in the setting of nausea, vomiting and watery diarrhea. The patient says that the nausea and vomiting have mostly resolved but he continues to have diarrhea. #Severe hyponatremia probably secondary to alcohol use and diarrhea #Alcohol withdrawal #Watery diarrhea, improving #Essential hypertension #Depression #PTSD #GERD #Degenerative disc disease #Chronic back pain #Tobacco use #High risk alcohol use Plan -IV fluid with D5 IV to slow sodium correction. -Trend sodium, avoid correction greater than 8 mmol/L per 24 hours. -CIWA protocol with Ativan IV as needed. -Vitamin supplementation. -Nicotine replacement. -Continue home labetalol, losartan, hydrochlorothiazide, clonidine patch, Prilosec, baclofen, hydroxyzine. -DVT prophylaxis: Lovenox -CODE STATUS: DNR/DNI -Disposition: Home when stable. Time Spent With Patient Time: Total time spent is greater than 50% in coordination of care (as documented) at patient's floor/unit and/or counseling patient: QUALITY VTE Deep Vein Thrombosis/Pulmonary Embolism Present on Admission: No
[2022-02-14] MEDS: NICOTINE POLACRILEX 2 MG GUM CHEW/PARK PRN ×2 (16:30→20:13)
[2022-02-14] MEDS ORDERED: GABAPENTIN 300 MG CAPSULE PO SCH (21:00)
--- NOTE | 2022-02-14 21:54 | EKG ---
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
[2022-02-15] MEDS: NICOTINE POLACRILEX 2 MG GUM CHEW/PARK PRN ×4 (01:24→17:58)
[2022-02-15] MEDS: 0.9 % SODIUM CHLORIDE 10 ML SYRINGE IV SCH ×6 (05:25→22:30)
[2022-02-15] MEDS: DEXTROSE 5%-LR 1,000 ML IV SCH ×2 (05:25→09:07)
[2022-02-15 06:39] LABS: ALT/SGPT 12 U/L (<40); AST/SGOT 11 U/L (<40); Albumin 3.5 gm/dL (3.2-5.2); Albumin/Globulin Ratio 1.8 (1.0-2.3); Alkaline Phosphatase 116 U/L (39-117); Bilirubin,Direct < 0.2 mg/dL (0-0.3); Bilirubin,Total 0.3 mg/dL (0.1-1.0); Blood Urea Nitrogen 10 mg/dL (8-23); Calcium 8.5 mg/dL (8.6-10.4); Carbon Dioxide 24 mmol/L (22-30); Chloride 85 mmol/L (96-108); Globulin 1.9 gm/dL (2.2-3.7); Glomerular Filtration Rate 72; Glucose 113 mg/dL (70-105); Lactate Dehydrogenase 111 U/L (135-225); Phosphorous 3.5 mg/dL (2.5-4.5); Triglycerides 48 mg/dL (<150); Uric Acid 3.9 mg/dL (2.5-8.0)
[2022-02-15] MEDS: hydrOXYzine 25 MG TABLET PO SCH ×3 (08:02→20:49)
[2022-02-15] MEDS: OMEPRAZOLE 20 MG CAPSULE PO SCH (08:02)
[2022-02-15] MEDS: LOSARTAN 50 MG TABLET PO SCH (08:03)
[2022-02-15] MEDS: DOCUSATE SODIUM 100 MG CAPSULE PO SCH ×2 (08:03→20:50)
[2022-02-15] MEDS: FOLIC ACID 1 MG TABLET PO SCH (08:03)
[2022-02-15] MEDS: DULoxetine 30 MG CAPSULE PO SCH (08:03)
[2022-02-15] MEDS: BACLOFEN 10 MG TABLET PO SCH ×4 (08:03→20:49)
[2022-02-15] MEDS: oxyCODONE HCL 5 MG TABLET PO SCH ×3 (08:04→20:49)
[2022-02-15] MEDS: ENOXAPARIN 40 MG/0.4 ML SYRINGE SQ SCH (08:04)
[2022-02-15] MEDS: BUDESONIDE FORMOTEROL INH SCH ×2 (08:04→20:50)
[2022-02-15] MEDS: GABAPENTIN 300 MG CAPSULE PO SCH ×2 (08:04→20:50)
[2022-02-15] MEDS: BENZONATATE 100 MG CAPSULE PO PRN ×2 (08:05→18:45)
[2022-02-15] MEDS: LABETALOL 100 MG TABLET PO SCH ×2 (08:05→20:49)
[2022-02-15] MEDS: THIAMINE 100 MG TABLET PO SCH (08:05)
--- NOTE | 2022-02-15 08:43 | Internal Med Progress Note ---
SUBJECTIVE Subjective Patient information: Note initiated : 02/15/22 at 8:38 am Service Date, if different from initiated Date: [] Patient: Chau Salter 61 y/o M admitted on 02/13/22 for N/V. Chief Complaint: [] Interval history: Mr. Salter is a 61-year-old male with a history of hypertension, depression, PTSD, GERD, degenerative disc disease, chronic back pain, high risk alcohol use Who presented to the emergency department for 3 days of nausea, vomiting and diarrhea. Patient says that the nausea and vomiting have mostly resolved but he continues to have profound watery diarrhea. He denies recent fevers chills, no sick contacts. The patient did have some mild abdominal discomfort but says that has resolved. The patient does drink 6 or more beers per day. In the emergency department, the patient was found to have a sodium level of 111. A CT abdomen pelvis with contrast was performed, report pending at the time of admission however the ED provider did receive a verbal report from the radiologist who said that it showed a gallstone but no evidence of cholecystitis and was otherwise unremarkable. Patient denies recent antibiotic use however in November 2021 he did have an upper respiratory tract infection that was treated with amoxicillin. 02/14 Tachycardic overnight, likely secondary to alcohol withdrawal. Sodium increased to 120 this morning then 123. Started D5 IV to slow sodium correction, will continue to follow sodium. Urine sodium was 10, urine osmolality 74. CIWA score 13 this morning. Patient receiving Ativan IV per CIWA score. C. difficile toxin was negative, started Imodium as needed for diarrhea. 02/15 Stable overnight, sodium decreased down to 113 then back to 120 this morning. We will continue to follow sodium, now off IV fluid. CIWA score this morning was 3. Physical exam Head: Atraumatic, normal inspection. Eyes: normal appearance, no scleral icterus. Neck: full ROM Respiratory: no respiratory distress. Cardiovascular: Normal rate and rhythm, S1, S2. GI/Abdominal: soft, nontender, no guarding. Extremities: full range of motion, nontender. Neurological: CN II-XII intact, intact motor, intact sensation. Psychiatric: normal mood. Skin: warm, normal color Constitutional Vitals: Vital Signs Temp Pulse Resp BP Pulse Ox O2 Del Method O2 Flow Rate 98.5 F 82 14 117/86 100 2 02/15/22 00:00 02/15/22 06:00 02/15/22 06:00 02/15/22 06:00 02/15/22 06:00 02/15/22 06:00 02/15/22 06:00 Period Temp Pulse Resp BP Sys/Erazo Pulse Ox O2 Del Method O2 Flow Rate Last 24 Hr 98.1 F-98.5 F 74-110 02-16 87-158/66-95 92-100 Nasal Cannula- Room Air 2-2 Intake and Output 02/14/22 02/15/22 02/15/22 19:59 03:59 11:59 Intake Total 1440 Output Total 600 650 551 Balance 840 -650 -551 Weight 82.191 kg Intake & Output: Intake & Output 02/14/22 02/15/22 02/15/22 19:59 03:59 11:59 Intake Total 1440 Output Total 600 650 551 Balance 840 -650 -551 Weight 82.191 kg Intake: IV 1440 Dextrose 5%-Lactated Ringers 1, 1440 000 ml @ 150 mls/hr IV .Q6H40M [facility] Rx#:[id number] Output: Void Amount 600 650 550 # of times incontinent of urine 1 Other: Urine Appearance Clear Urine Color Pale Yellow # Voids 800 OBJ DATA Labs CBC & Chem 7: 02/13/22 09:29 02/15/22 05:22 Labs: Abnormal Lab Results 02/15/22 02/14/22 02/14/22 05:22 23:59 18:23 WBC RBC Hct MCHC Immature Gran % (Auto) Neut % (Auto) Lymph % (Auto) Lymph # (Auto) [place] # (Auto) Immature Gran # Absolute Neutrophils Sodium 120 L 113 L* 116 L* Potassium Chloride 85 L BUN Glucose 113 H Osmolality Calcium 8.5 L Magnesium 1.5 L Alkaline Phosphatase Lactate Dehydrogenase 111 L Total Protein 5.4 L Globulin 1.9 L Lipase Urine Osmolality 02/14/22 02/14/22 02/13/22 12:15 05:32 19:20 WBC RBC Hct MCHC Immature Gran % (Auto) Neut % (Auto) Lymph % (Auto) Lymph # (Auto) [place] # (Auto) Immature Gran # Absolute Neutrophils Sodium 123 L 120 L 113 L* Potassium Chloride 87 L 85 L BUN 7 L 6 L Glucose 145 H 119 H Osmolality Calcium Magnesium Alkaline Phosphatase 132 H 140 H Lactate Dehydrogenase Total Protein 5.7 L Globulin 1.9 L Lipase Urine Osmolality 02/13/22 02/13/22 02/13/22 13:43 11:40 09:29 WBC RBC Hct MCHC Immature Gran % (Auto) Neut % (Auto) Lymph % (Auto) Lymph # (Auto) [place] # (Auto) Immature Gran # Absolute Neutrophils Sodium 114 L* 111 L* Potassium 3.2 L Chloride 77 L 72 L BUN 3 L 3 L Glucose 117 H 133 H Osmolality 243 L Calcium Magnesium Alkaline Phosphatase 156 H 164 H Lactate Dehydrogenase Total Protein Globulin Lipase 78 H Urine Osmolality 74 L 02/13/22 09:29 WBC 18.8 H RBC 4.38 L Hct 36.5 L MCHC 36.1 H Immature Gran % (Auto) 1.2 H Neut % (Auto) 83.1 H Lymph % (Auto) 7.9 L Lymph # (Auto) 1.48 L [place] # (Auto) 1.26 H Immature Gran # 0.23 H Absolute Neutrophils 15.63 H Sodium Potassium Chloride BUN Glucose Osmolality Calcium Magnesium Alkaline Phosphatase Lactate Dehydrogenase Total Protein Globulin Lipase Urine Osmolality Meds: Medications Acetaminophen (Acetaminophen 325 Mg Tablet) 650 mg PO Q6HP PRN; Protocol PRN Reason: Per Pain Protocol/Fever > 101 Albuterol Sulfate (Albuterol Sulfate 2.5 Mg/3 Ml Nebulizer) 2.5 mg NEB Q2HP PRN PRN Reason: Shortness Of Breath Last Admin: 02/14/22 20:21 Dose: 2.5 mg Baclofen (Baclofen 10 Mg Tablet) 10 mg PO QID [facility] Last Admin: 02/15/22 08:03 Dose: 10 mg Benzonatate (Benzonatate 100 Mg Capsule) 100 mg PO Q4HP PRN PRN Reason: Cough Last Admin: 02/15/22 08:05 Dose: 100 mg Clonidine HCl (Clonidine Tts 1 1 Patch Patch) 1 patch TD WEEKLY [facility] Last Admin: 02/13/22 15:46 Dose: 1 patch Docusate Sodium (Docusate Sodium 100 Mg Capsule) 100 mg PO BID [facility] Last Admin: 02/15/22 08:03 Dose: Not Given Duloxetine HCl (Duloxetine 30 Mg Capsule) 60 mg PO DAILY [facility] Last Admin: 02/15/22 08:03 Dose: 60 mg Enoxaparin Sodium (Enoxaparin 40 Mg/0.4 Ml Syringe) 40 mg SQ DAILY [facility] Last Admin: 02/15/22 08:04 Dose: 40 mg Folic Acid (Folic Acid 1 Mg Tablet) 1 mg PO DAILY [facility] Last Admin: 02/15/22 08:03 Dose: 1 mg Gabapentin (Gabapentin 300 Mg Capsule) 300 mg PO DAILY [facility] Last Admin: 02/15/22 08:04 Dose: 300 mg Gabapentin (Gabapentin 300 Mg Capsule) 600 mg PO HS [facility] Last Admin: 02/14/22 20:08 Dose: 600 mg Hydralazine HCl (Hydralazine 20 Mg/Ml Vial) 20 mg IV Q4-6HP PRN PRN Reason: Hypertension Last Admin: 02/14/22 05:42 Dose: 20 mg Hydroxyzine HCl (Hydroxyzine 25 Mg Tablet) 25 mg PO TID [facility] Last Admin: 02/15/22 08:02 Dose: 25 mg Dextrose/Lactated Ringer's (Dextrose 5%-Lactated Ringers) 1,000 mls @ 150 mls/hr IV .Q6H40M [facility] Last Admin: 02/15/22 05:25 Dose: Not Given Ketorolac Tromethamine (Ketorolac 15 Mg/Ml Vial) 15 mg IV Q6HP PRN PRN Reason: Pain Stop: 02/15/22 14:02 Last Admin: 02/13/22 14:32 Dose: 15 mg Labetalol HCl (Labetalol 100 Mg Tablet) 100 mg PO BID [facility] Last Admin: 02/15/22 08:05 Dose: 100 mg Labetalol HCl (Labetalol 5 Mg/Ml Ml) 10 mg IV Q10M PRN PRN Reason: Hypertension Lactulose (Lactulose 20 Gm/30 Ml Oral.Nitza) 10 gm PO DAILYP PRN PRN Reason: Constipation Loperamide HCl (Loperamide 2 Mg Capsule) 2 mg PO PRN PRN PRN Reason: Diarrhea Lorazepam (Lorazepam 2 Mg/Ml Vial) 0 mg IV UD PRN; Protocol PRN Reason: Alcohol Withdrawal/Assess CIWA Last Admin: 02/14/22 09:42 Dose: 2 mg Losartan Potassium (Losartan 50 Mg Tablet) 100 mg PO DAILY [facility] Last Admin: 02/15/22 08:03 Dose: 100 mg Nicotine (Nicotine 21 Mg Patch) 21 mg TOPICAL DAILY@1000 [facility] Last Admin: 02/14/22 09:42 Dose: 21 mg Nicotine Polacrilex (Nicotine Polacrilex 2 Mg Gum) 2 mg CHEW/PARK Q4HP PRN PRN Reason: nicotine withdrawal Last Admin: 02/15/22 08:05 Dose: 2 mg Omeprazole (Omeprazole 20 Mg Capsule) 40 mg PO ACB [facility] Last Admin: 02/15/22 08:02 Dose: 40 mg Ondansetron HCl (Ondansetron 4 Mg/2 Ml Vial) 4 mg IV Q4HP PRN; Protocol PRN Reason: Nausea And Vomiting Oxycodone HCl (Oxycodone Hcl 5 Mg Tablet) 10 mg PO TID [facility]; Protocol Last Admin: 02/15/22 08:04 Dose: 10 mg Budesonide- Formoterol 160-4.5 Mcg/Actuation Hfa Inhaler 1 dose INH BID [facility] Last Admin: 02/15/22 08:04 Dose: Not Given Senna (Sennosides 1 Tablet) 2 tab PO HSP PRN PRN Reason: Constipation Sodium Chloride (0.9 % Sodium Chloride 10 Ml Syringe) 10 ml IV Q8 [facility] Last Admin: 02/15/22 05:25 Dose: 10 ml Sodium Chloride (0.9 % Sodium Chloride 10 Ml Syringe) 10 ml IV Q8 [facility] Last Admin: 02/15/22 05:26 Dose: Not Given Thiamine HCl (Thiamine 100 Mg Tablet) 100 mg PO QDAY [facility] Last Admin: 02/15/22 08:05 Dose: 100 mg A/P Narrative A/P Narrative: Assessment: 61-year-old male with a history of hypertension, depression, PTSD, GERD, degenerative disc disease, chronic back pain, high risk alcohol use admitted for severe hyponatremia occurring in the setting of nausea, vomiting and watery diarrhea. Soon after admission, the patient developed alcohol withdrawal. C. difficile screen was negative, the patient was started on Imodium. Diarrhea improved. Sodium increased rapidly and D5 IV fluid was given briefly to slow the correction in sodium. Alcohol withdrawal improving, sodium improving. #Resolving severe hyponatremia probably secondary to alcohol use and possibly diarrhea #Alcohol withdrawal #Watery diarrhea, improved #Essential hypertension #Depression #PTSD #GERD #Degenerative disc disease #Chronic back pain #Tobacco use #High risk alcohol use Plan -Discontinue IV fluid. -Trend sodium, avoid correction greater than 8 mmol/L per 24 hours. -CIWA protocol with Ativan IV as needed. -Vitamin supplementation. -Nicotine replacement. -Holding home hydrochlorothiazide for now for hyponatremia. -Continue home labetalol, losartan, clonidine patch, Prilosec, baclofen, hydroxyzine. -DVT prophylaxis: Lovenox -CODE STATUS: DNR/DNI -Disposition: Home when stable. Time Spent With Patient Time: Total time spent is greater than 50% in coordination of care (as documented) at patient's floor/unit and/or counseling patient: QUALITY VTE Deep Vein Thrombosis/Pulmonary Embolism Present on Admission: No
[2022-02-15] MEDS: NICOTINE 21 MG PATCH TOPICAL SCH (09:13)
[2022-02-15] MEDS: LORazepam 2 MG/ML VIAL IV PRN (12:24)
--- NOTE | 2022-02-15 14:14 | Cat Scan Report ---
History: Cough with right-sided chest pain TECHNIQUE: The chest was imaged without contrast in axial plane at 2.5 mm intervals. Sagittal, coronal and axial MIPS images were created. The radiation exposure was limited using dose reduction technology. FINDINGS: There are acute fractures laterally in the right fourth and fifth ribs. There is mild reduced reabsorption of bone around the fracture fourth rib and there is thickening of soft tissues both medial lateral to the rib fracture. There is no reabsorption of bone around the fractured fifth rib but there is mild soft tissue swelling consistent with edema and inflammation. There are subacute partially healed fractures posteriorly in the right 12th rib and laterally in the left sixth rib. There are also old healed fractures of the right sixth rib and the left eighth and 10th ribs. There is no pneumothorax or hemothorax are present. There is a random distribution of mild groundglass alveolar opacities in both lungs with the greatest involvement in the left lower lobe. Patient has underlying mild pulmonary fibrosis. This is best seen in the superior segments of both lower lobes and posterior basal segment left lower lobe. There are couple small bulla. Is also subtle bronchiectasis in the posterior basal segments of both lower lobes. There is no lobar consolidation is present. There is no evidence of a lung mass. The trachea and mainstem bronchi are normal. The inflammation and fibrosis in both lungs has progressed since prior CT done on 02/07/21. The heart is normal in size and contour. Mild atherosclerotic disease is seen in the coronary arteries and aorta. There is a small lucent lesion in the right side of the manubrium. It contains thin trabeculations. 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 The spine is normal without evidence of fracture or malignancy. The gallbladder is contracted. There is a 1.5 mm stone in the neck. IMPRESSION: Acute fractures laterally in the right fourth and fifth ribs. Mild resorption of bone around the fractured fourth rib. This could be part of the healing process and less likely an underlying malignancy. Inflammation and fibrosis in both lungs. This may be due to usual interstitial pneumonia. Superimposed infection cannot be excluded. Interpreted and Authenticated by: Patricio Worthington 02/15/22
[2022-02-15] MEDS: cefTRIAXone 2 GM in DEXTROSE 5% IN WATER 50 ML IV SCH (15:10)
[2022-02-15] MEDS: AZITHROMYCIN 500 MG in DEXTROSE 5% IN WATER 250 ML IV SCH (15:50)
[2022-02-15] MEDS: SODIUM CHLORIDE 1 GM TABLET PO SCH (21:21)
[2022-02-16] MEDS: NICOTINE POLACRILEX 2 MG GUM CHEW/PARK PRN ×5 (00:31→23:32)
[2022-02-16] MEDS: 0.9 % SODIUM CHLORIDE 10 ML SYRINGE IV SCH ×6 (06:05→21:01)
[2022-02-16] MEDS: LABETALOL 100 MG TABLET PO SCH ×2 (07:44→20:27)
[2022-02-16] MEDS: SODIUM CHLORIDE 1 GM TABLET PO SCH ×4 (07:44→20:31)
[2022-02-16] MEDS: DULoxetine 30 MG CAPSULE PO SCH (07:44)
[2022-02-16] MEDS: hydrOXYzine 25 MG TABLET PO SCH ×3 (07:44→20:27)
[2022-02-16] MEDS: BACLOFEN 10 MG TABLET PO SCH ×4 (07:44→20:27)
[2022-02-16] MEDS: THIAMINE 100 MG TABLET PO SCH (07:45)
[2022-02-16] MEDS: OMEPRAZOLE 20 MG CAPSULE PO SCH (07:45)
[2022-02-16] MEDS: FOLIC ACID 1 MG TABLET PO SCH (07:45)
[2022-02-16] MEDS: oxyCODONE HCL 5 MG TABLET PO SCH ×3 (07:45→20:29)
[2022-02-16] MEDS: GABAPENTIN 300 MG CAPSULE PO SCH ×2 (07:45→20:27)
[2022-02-16] MEDS: LOSARTAN 50 MG TABLET PO SCH (07:45)
[2022-02-16] MEDS: ENOXAPARIN 40 MG/0.4 ML SYRINGE SQ SCH (07:46)
[2022-02-16 08:30] LABS: ALT/SGPT 12 U/L (<40); AST/SGOT 11 U/L (<40); Albumin 3.5 gm/dL (3.2-5.2); Albumin/Globulin Ratio 1.8 (1.0-2.3); Alkaline Phosphatase 106 U/L (39-117); Bilirubin,Direct < 0.2 mg/dL (0-0.3); Bilirubin,Total 0.2 mg/dL (0.1-1.0); Blood Urea Nitrogen 10 mg/dL (8-23); Calcium 8.8 mg/dL (8.6-10.4); Carbon Dioxide 24 mmol/L (22-30); Chloride 88 mmol/L (96-108); Globulin 1.9 gm/dL (2.2-3.7); Glomerular Filtration Rate 65; Glucose 99 mg/dL (70-105); Lactate Dehydrogenase 138 U/L (135-225); Triglycerides 54 mg/dL (<150); Uric Acid 4.2 mg/dL (2.5-8.0)
[2022-02-16] MEDS ORDERED: PNEUMOCOCCAL 23-VAL P-SAC VAC 0.5 ML SYRINGE IM ONE (09:00)
[2022-02-16] MEDS ORDERED: FLU VACC QS2022-23(6MOS UP)/PF 60 MCG/0.5 ML SYRINGE IM ONE (09:00)
[2022-02-16] MEDS: NICOTINE 21 MG PATCH TOPICAL SCH (10:17)
[2022-02-16] MEDS: DOCUSATE SODIUM 100 MG CAPSULE PO SCH ×2 (10:49→20:27)
[2022-02-16] MEDS: BUDESONIDE FORMOTEROL INH SCH ×2 (10:49→20:28)
[2022-02-16] MEDS: LORazepam 2 MG/ML VIAL IV PRN ×3 (11:06→23:09)
[2022-02-16] MEDS: cefTRIAXone 2 GM in DEXTROSE 5% IN WATER 50 ML IV SCH (11:57)
[2022-02-16] MEDS: AZITHROMYCIN 500 MG in DEXTROSE 5% IN WATER 250 ML IV SCH (12:35)
--- NOTE | 2022-02-16 13:17 | Internal Med Progress Note ---
SUBJECTIVE Subjective Patient information: Note initiated : 02/16/22 at 1:12 pm Service Date, if different from initiated Date: [] Patient: Chau Salter 61 y/o M admitted on 02/13/22 for Nausea/Vomiting. Chief Complaint: [] Interval history: Mr. Salter is a 61-year-old male with a history of hypertension, depression, PTSD, GERD, degenerative disc disease, chronic back pain, high risk alcohol use Who presented to the emergency department for 3 days of nausea, vomiting and diarrhea. Patient says that the nausea and vomiting have mostly resolved but he continues to have profound watery diarrhea. He denies recent fevers chills, no sick contacts. The patient did have some mild abdominal discomfort but says that has resolved. The patient does drink 6 or more beers per day. In the emergency department, the patient was found to have a sodium level of 111. A CT abdomen pelvis with contrast was performed, report pending at the time of ad mission however the ED provider did receive a verbal report from the radiologist who said that it showed a gallstone but no evidence of cholecystitis and was otherwise unremarkable. Patient denies recent antibiotic use however in November 2021 he did have an upper respiratory tract infection that was treated with amoxicillin. 02/14 Tachycardic overnight, likely secondary to alcohol withdrawal. Sodium increased to 120 this morning then 123. Started D5 IV to slow sodium correction, will continue to follow sodium. Urine sodium was 10, urine osmolality 74. CIWA score 13 this morning. Patient receiving Ativan IV per CIWA score. C. difficile toxin was negative, started Imodium as needed for diarrhea. 02/15 Stable overnight, sodium decreased down to 113 then back to 120 this morning. W e will continue to follow sodium, now off IV fluid. CIWA score this morning was 3. 02/16-patient doing a lot better. CIWA scoring minimal with no significant psychomotor agitation or hallucinations. Sodium up to 124, on oral salt tabs, continue nutrition support. Stable labs and hemodynamics, Ambulating, transfer to medical floor today Constitutional Vitals: Vital Signs Temp Pulse Resp BP Pulse Ox O2 Del Method O2 Flow Rate 97.4 F 84 15 113/72 98 2 02/16/22 12:06 02/16/22 12:06 02/16/22 12:06 02/16/22 12:06 02/16/22 12:06 02/16/22 12:06 02/16/22 06:00 Period Temp Pulse Resp BP Sys/Erazo Pulse Ox O2 Del Method O2 Flow Rate Last 24 Hr 97.4 F-98.8 F 65-97 11-19 113-140/72-101 96-100 Nasal Cannula- Room Air 2-2 Intake and Output 02/16/22 02/16/22 02/16/22 03:59 11:59 19:59 Intake Total 220 360 50 Output Total 1000 700 Balance -780 -340 50 Weight 81.284 kg Alert oriented Minimal anxiety Nonlabored breathing Intake & Output: Intake & Output 02/16/22 02/16/22 02/16/22 03:59 11:59 19:59 Intake Total 220 360 50 Output Total 1000 700 Balance -780 -340 50 Weight 81.284 kg Intake: IV 50 Rocephin 2 gm In Dextrose 5% in 50 Water 50 ml @ 100 mls/hr IV Q24H [facility] Rx#:[id number] Oral 220 360 Output: Void Amount 1000 700 Other: Meal Breakfast Percent of Meal Consumed 100% Feeding Ability Independent Urine Appearance Clear Clear Urine Color Pale Yellow OBJ DATA Labs CBC & Chem 7: 02/13/22 09:29 02/16/22 05:14 Labs: Abnormal Lab Results 02/16/22 02/16/22 02/15/22 05:14 00:20 17:57 Sodium 124 L 121 L 116 L* Potassium Chloride 88 L BUN Glucose Osmolality Calcium Magnesium Alkaline Phosphatase Lactate Dehydrogenase Total Protein 5.4 L Globulin 1.9 L Urine Osmolality 02/15/22 02/15/22 02/14/22 12:02 05:22 23:59 Sodium 120 L 120 L 113 L* Potassium Chloride 85 L BUN Glucose 113 H Osmolality Calcium 8.5 L Magnesium 1.5 L Alkaline Phosphatase Lactate Dehydrogenase 111 L Total Protein 5.4 L Globulin 1.9 L Urine Osmolality 02/14/22 02/14/22 02/14/22 18:23 12:15 05:32 Sodium 116 L* 123 L 120 L Potassium Chloride 87 L 85 L BUN 7 L 6 L Glucose 145 H 119 H Osmolality Calcium Magnesium Alkaline Phosphatase 132 H 140 H Lactate Dehydrogenase Total Protein 5.7 L Globulin 1.9 L Urine Osmolality 02/13/22 02/13/22 02/13/22 19:20 13:43 11:40 Sodium 113 L* 114 L* Potassium 3.2 L Chloride 77 L BUN 3 L Glucose 117 H Osmolality 243 L Calcium Magnesium Alkaline Phosphatase 156 H Lactate Dehydrogenase Total Protein Globulin Urine Osmolality 74 L Meds: Medications Acetaminophen (Acetaminophen 325 Mg Tablet) 650 mg PO Q6HP PRN; Protocol PRN Reason: Per Pain Protocol/Fever > 101 Albuterol Sulfate (Albuterol Sulfate 2.5 Mg/3 Ml Nebulizer) 2.5 mg NEB Q2HP PRN PRN Reason: Shortness Of Breath Last Admin: 02/14/22 20:21 Dose: 2.5 mg Baclofen (Baclofen 10 Mg Tablet) 10 mg PO QID [facility] Last Admin: 02/16/22 12:35 Dose: 10 mg Benzonatate (Benzonatate 100 Mg Capsule) 100 mg PO Q4HP PRN PRN Reason: Cough Last Admin: 02/15/22 18:45 Dose: 100 mg Clonidine HCl (Clonidine Tts 1 1 Patch Patch) 1 patch TD WEEKLY [facility] Last Admin: 02/13/22 15:46 Dose: 1 patch Docusate Sodium (Docusate Sodium 100 Mg Capsule) 100 mg PO BID [facility] Last Admin: 02/16/22 10:49 Dose: Not Given Duloxetine HCl (Duloxetine 30 Mg Capsule) 60 mg PO DAILY [facility] Last Admin: 02/16/22 07:44 Dose: 60 mg Enoxaparin Sodium (Enoxaparin 40 Mg/0.4 Ml Syringe) 40 mg SQ DAILY [facility] Last Admin: 02/16/22 07:46 Dose: 40 mg Folic Acid (Folic Acid 1 Mg Tablet) 1 mg PO DAILY [facility] Last Admin: 02/16/22 07:45 Dose: 1 mg Gabapentin (Gabapentin 300 Mg Capsule) 300 mg PO DAILY [facility] Last Admin: 02/16/22 07:45 Dose: 300 mg Gabapentin (Gabapentin 300 Mg Capsule) 600 mg PO HS [facility] Last Admin: 02/15/22 20:50 Dose: 600 mg Hydralazine HCl (Hydralazine 20 Mg/Ml Vial) 20 mg IV Q4-6HP PRN PRN Reason: Hypertension Last Admin: 02/14/22 05:42 Dose: 20 mg Hydroxyzine HCl (Hydroxyzine 25 Mg Tablet) 25 mg PO TID [facility] Last Admin: 02/16/22 07:44 Dose: 25 mg Azithromycin 500 mg/ Dextrose 250 mls @ 250 mls/hr IV Q24H [facility]; Protocol Stop: 02/17/22 15:44 Last Admin: 02/16/22 12:35 Dose: 250 mls/hr Ceftriaxone Sodium 2 gm/ (Dextrose) 50 mls @ 100 mls/hr IV Q24H [facility]; Protocol Last Infusion: 02/16/22 12:40 Dose: Infused Labetalol HCl (Labetalol 100 Mg Tablet) 100 mg PO BID [facility] Last Admin: 02/16/22 07:44 Dose: 100 mg Labetalol HCl (Labetalol 5 Mg/Ml Ml) 10 mg IV Q10M PRN PRN Reason: Hypertension Lactulose (Lactulose 20 Gm/30 Ml Oral.Nitza) 10 gm PO DAILYP PRN PRN Reason: Constipation Loperamide HCl (Loperamide 2 Mg Capsule) 2 mg PO PRN PRN PRN Reason: Diarrhea Lorazepam (Lorazepam 2 Mg/Ml Vial) 0 mg IV UD PRN; Protocol PRN Reason: Alcohol Withdrawal/Assess CIWA Last Admin: 02/16/22 12:00 Dose: 1 mg Losartan Potassium (Losartan 50 Mg Tablet) 100 mg PO DAILY [facility] Last Admin: 02/16/22 07:45 Dose: 100 mg Nicotine (Nicotine 21 Mg Patch) 21 mg TOPICAL DAILY@1000 [facility] Last Admin: 02/16/22 10:17 Dose: 21 mg Nicotine Polacrilex (Nicotine Polacrilex 2 Mg Gum) 2 mg CHEW/PARK Q4HP PRN PRN Reason: nicotine withdrawal Last Admin: 02/16/22 09:40 Dose: 2 mg Omeprazole (Omeprazole 20 Mg Capsule) 40 mg PO ACB [facility] Last Admin: 02/16/22 07:45 Dose: 40 mg Ondansetron HCl (Ondansetron 4 Mg/2 Ml Vial) 4 mg IV Q4HP PRN; Protocol PRN Reason: Nausea And Vomiting Oxycodone HCl (Oxycodone Hcl 5 Mg Tablet) 10 mg PO TID [facility]; Protocol Last Admin: 02/16/22 07:45 Dose: 10 mg Budesonide- Formoterol 160-4.5 Mcg/Actuation Hfa Inhaler 1 dose INH BID [facility] Last Admin: 02/16/22 10:49 Dose: Not Given Senna (Sennosides 1 Tablet) 2 tab PO HSP PRN PRN Reason: Constipation Sodium Chloride (0.9 % Sodium Chloride 10 Ml Syringe) 10 ml IV Q8 [facility] Last Admin: 02/16/22 06:05 Dose: 10 ml Sodium Chloride (0.9 % Sodium Chloride 10 Ml Syringe) 10 ml IV Q8 [facility] Last Admin: 02/16/22 06:05 Dose: Not Given Sodium Chloride (Sodium Chloride 1 Gm Tablet) 2 gm PO QID [facility] Last Admin: 02/16/22 13:11 Dose: 2 gm Thiamine HCl (Thiamine 100 Mg Tablet) 100 mg PO QDAY [facility] Last Admin: 02/16/22 07:45 Dose: 100 mg A/P Narrative A/P Narrative: Assessment: 61-year-old male with a history of hypertension, depression, PTSD, GERD, degenerative disc disease, chronic back pain, high risk alcohol use admitted for severe hyponatremia occurring in the setting of nausea, vomiting and watery diarrhea. Soon after admission, the patient developed alcohol withdrawal. C. difficile screen was negative, the patient was started on Imodium. Diarrhea improved. Sodium increased rapidly and D5 IV fluid was given briefly to slow the correction in sodium. Alcohol withdrawal improving, sodium improving. * Hypovolemic hyponatremia secondary to alcohol use and poor oral solute intake and concurrent thiazide use. Gradually improving on salt tabs up to 124 * Severe alcohol use disorder no significant withdrawal. Continue supplement/multivitamin/nutrition support and counseling for cessation * Diarrhea resolved * Essential hypertension, systolics at goal, on clonidine, ARB and thiazide on hold * History depression on duloxetine * GERD on PPI * Chronic pain on home dose oxycodone * Tobacco dependence, counseled for cessation Plan * Nutrition support * Salt tabs * Pre-existing medical condition management as above * Prophylaxis Lovenox * Discharge likely in 48 hours Time Spent With Patient Time: Total time spent is greater than 50% in coordination of care (as documented) at patient's floor/unit and/or counseling patient: QUALITY VTE Deep Vein Thrombosis/Pulmonary Embolism Present on Admission: No
[2022-02-16] MEDS: BENZONATATE 100 MG CAPSULE PO PRN (18:53)
[2022-02-16] MEDS: guaiFENesin/DEXTROMETHORPHAN ORAL SOL PO PRN (22:43)
[2022-02-16] MEDS ORDERED: guaiFENesin/DEXTROMETHORPHAN ORAL SOL ONE (22:54)
[2022-02-17] MEDS: NICOTINE POLACRILEX 2 MG GUM CHEW/PARK PRN ×4 (06:02→20:19)
[2022-02-17] MEDS: LOPERAMIDE 2 MG CAPSULE PO PRN ×2 (06:02→18:46)
[2022-02-17] MEDS: 0.9 % SODIUM CHLORIDE 10 ML SYRINGE IV SCH ×5 (06:04→22:16)
[2022-02-17 07:15] LABS: ALT/SGPT 11 U/L (<40); AST/SGOT 12 U/L (<40); Albumin 3.1 gm/dL (3.2-5.2); Albumin/Globulin Ratio 1.3 (1.0-2.3); Alkaline Phosphatase 96 U/L (39-117); Bilirubin,Direct < 0.2 mg/dL (0-0.3); Bilirubin,Total 0.2 mg/dL (0.1-1.0); Blood Urea Nitrogen 7 mg/dL (8-23); Calcium 8.8 mg/dL (8.6-10.4); Carbon Dioxide 26 mmol/L (22-30); Chloride 93 mmol/L (96-108); Globulin 2.3 gm/dL (2.2-3.7); Glomerular Filtration Rate 81; Glucose 93 mg/dL (70-105); Lactate Dehydrogenase 153 U/L (135-225); Phosphorous 3.7 mg/dL (2.5-4.5); Triglycerides 38 mg/dL (<150); Uric Acid 3.6 mg/dL (2.5-8.0)
[2022-02-17] MEDS: OMEPRAZOLE 20 MG CAPSULE PO SCH (08:18)
--- NOTE | 2022-02-17 08:29 | Internal Med Progress Note ---
SUBJECTIVE Subjective Patient information: Note initiated : 02/17/22 at 8:22 am Service Date, if different from initiated Date: [] Patient: Chau Salter 61 y/o M admitted on 02/13/22 for Nausea/Vomiting. Chief Complaint: [] Interval history: Mr. Salter is a 61-year-old male with a history of hypertension, depression, PTSD, GERD, degenerative disc disease, chronic back pain, high risk alcohol use Who presented to the emergency department for 3 days of nausea, vomiting and diarrhea. Patient says that the nausea and vomiting have mostly resolved but he continues to have profound watery diarrhea. He denies recent fevers chills, no sick contacts. The patient did have some mild abdominal discomfort but says that has resolved. The patient does drink 6 or more beers per day. In the emergency department, the patient was found to have a sodium level of 111. A CT abdomen pelvis with contrast was performed, report pending at the time of ad mission however the ED provider did receive a verbal report from the radiologist who said that it showed a gallstone but no evidence of cholecystitis and was otherwise unremarkable. Patient denies recent antibiotic use however in November 2021 he did have an upper respiratory tract infection that was treated with amoxicillin. 02/14 Tachycardic overnight, likely secondary to alcohol withdrawal. Sodium increased to 120 this morning then 123. Started D5 IV to slow sodium correction, will continue to follow sodium. Urine sodium was 10, urine osmolality 74. CIWA score 13 this morning. Patient receiving Ativan IV per CIWA score. C. difficile toxin was negative, started Imodium as needed for diarrhea. 02/15 Stable overnight, sodium decreased down to 113 then back to 120 this morning. W e will continue to follow sodium, now off IV fluid. CIWA score this morning was 3. 02/16-patient doing a lot better. CIWA scoring minimal with no significant psychomotor agitation or hallucinations. Sodium up to 124, on oral salt tabs, continue nutrition support. Stable labs and hemodynamics, Ambulating, transfer to medical floor today 02/17-patient doing a lot better. On room air- 2 L oxygen to maintain sats, persistent diarrhea, sodium improved from 1 21-1 27, potassium improved from 3. 4-4.2, improved psychomotor agitation, tremor, no telemetry events, required 1 dose of Ativan last night, on gabapentin clonidine, no overnight fever chills. No active hallucination. In discussion with patient he indicated that he has no desire to quit alcohol and would not want to undergo outpatient alcohol rehab. Dramatic rise in white count at 18.8, C. difficile/stool culture sent, check blood cultures/chest imaging Constitutional Vitals: Vital Signs Temp Pulse Resp BP Pulse Ox O2 Del Method O2 Flow Rate 97.8 F 84 15 139/98 100 2 02/17/22 04:14 02/16/22 12:06 02/17/22 04:14 02/17/22 00:00 02/17/22 00:00 02/17/22 04:14 02/17/22 04:14 Period Temp Pulse Resp BP Sys/Erazo Pulse Ox O2 Del Method O2 Flow Rate Last 24 Hr 97.4 F-98.5 F 84 12-28 113-148/72-98 93-100 Nasal Cannula-Room Air 1-2 Intake and Output 02/16/22 02/17/22 02/17/22 19:59 03:59 11:59 Intake Total 2460 1000 420 Output Total 1725 1400 351 Balance 735 -400 69 Weight 88.904 kg Alert oriented Nonlabored breathing Improved agitation anxiety More lucid No telemetry events Intake & Output: Intake & Output 02/16/22 02/17/22 02/17/22 19:59 03:59 11:59 Intake Total 2460 1000 420 Output Total 1725 1400 351 Balance 735 -400 69 Weight 88.904 kg Intake: IV 300 Zithromax 500 mg In Dextrose 5% 250 in Water 250 ml @ 250 mls/hr IV Q24H [facility] Rx#:[id number] Rocephin 2 gm In Dextrose 5% in 50 Water 50 ml @ 100 mls/hr IV Q24H [facility] Rx#:[id number] Oral 2160 1000 420 Output: Void Amount 1725 1400 # of times incontinent of urine 1 Urine/Stool Mix 350 Other: Meal Lunch Percent of Meal Consumed 100% Urine Appearance Clear Clear Urine Color Yellow Yellow Urine Odor Normal Stool Size Copious Small Moderate Stool Color Brown Brown Brown Stool Consistency Normal for Patient Loose Soft Formed # Bowel Movements 1 # of times incontinent of 0 Bowels OBJ DATA Labs CBC & Chem 7: 02/13/22 09:29 02/17/22 04:49 Labs: Abnormal Lab Results 02/17/22 02/16/22 02/16/22 04:49 05:14 00:20 Sodium 127 L 124 L 121 L Chloride 93 L 88 L BUN 7 L Glucose Calcium Magnesium Alkaline Phosphatase Lactate Dehydrogenase Total Protein 5.4 L 5.4 L Albumin 3.1 L Globulin 1.9 L 02/15/22 02/15/22 02/15/22 17:57 12:02 05:22 Sodium 116 L* 120 L 120 L Chloride 85 L BUN Glucose 113 H Calcium 8.5 L Magnesium 1.5 L Alkaline Phosphatase Lactate Dehydrogenase 111 L Total Protein 5.4 L Albumin Globulin 1.9 L 02/14/22 02/14/22 02/14/22 23:59 18:23 12:15 Sodium 113 L* 116 L* 123 L Chloride 87 L BUN 7 L Glucose 145 H Calcium Magnesium Alkaline Phosphatase 132 H Lactate Dehydrogenase Total Protein 5.7 L Albumin Globulin 1.9 L Meds: Medications Acetaminophen (Acetaminophen 325 Mg Tablet) 650 mg PO Q6HP PRN; Protocol PRN Reason: Per Pain Protocol/Fever > 101 Albuterol Sulfate (Albuterol Sulfate 2.5 Mg/3 Ml Nebulizer) 2.5 mg NEB Q2HP PRN PRN Reason: Shortness Of Breath Last Admin: 02/14/22 20:21 Dose: 2.5 mg Baclofen (Baclofen 10 Mg Tablet) 10 mg PO QID [facility] Last Admin: 02/16/22 20:27 Dose: 10 mg Benzonatate (Benzonatate 100 Mg Capsule) 100 mg PO Q4HP PRN PRN Reason: Cough Last Admin: 02/16/22 18:53 Dose: 100 mg Clonidine HCl (Clonidine Tts 1 1 Patch Patch) 1 patch TD WEEKLY [facility] Last Admin: 02/13/22 15:46 Dose: 1 patch Docusate Sodium (Docusate Sodium 100 Mg Capsule) 100 mg PO BID [facility] Last Admin: 02/16/22 20:27 Dose: Not Given Duloxetine HCl (Duloxetine 30 Mg Capsule) 60 mg PO DAILY [facility] Last Admin: 02/16/22 07:44 Dose: 60 mg Enoxaparin Sodium (Enoxaparin 40 Mg/0.4 Ml Syringe) 40 mg SQ DAILY [facility] Last Admin: 02/16/22 07:46 Dose: 40 mg Folic Acid (Folic Acid 1 Mg Tablet) 1 mg PO DAILY [facility] Last Admin: 02/16/22 07:45 Dose: 1 mg Gabapentin (Gabapentin 300 Mg Capsule) 300 mg PO DAILY [facility] Last Admin: 02/16/22 07:45 Dose: 300 mg Gabapentin (Gabapentin 300 Mg Capsule) 600 mg PO HS [facility] Last Admin: 02/16/22 20:27 Dose: 600 mg Guaifenesin (Guaifenesin/Dextromethorphan Oral Nitza) 10 ml PO Q4HP PRN PRN Reason: Cough Last Admin: 02/16/22 22:43 Dose: 10 ml Hydralazine HCl (Hydralazine 20 Mg/Ml Vial) 20 mg IV Q4-6HP PRN PRN Reason: Hypertension Last Admin: 02/14/22 05:42 Dose: 20 mg Hydroxyzine HCl (Hydroxyzine 25 Mg Tablet) 25 mg PO TID [facility] Last Admin: 02/16/22 20:27 Dose: 25 mg Azithromycin 500 mg/ Dextrose 250 mls @ 250 mls/hr IV Q24H [facility]; Protocol Stop: 02/17/22 15:44 Last Infusion: 02/16/22 14:00 Dose: Infused Ceftriaxone Sodium 2 gm/ (Dextrose) 50 mls @ 100 mls/hr IV Q24H [facility]; Protocol Last Infusion: 02/16/22 12:40 Dose: Infused Labetalol HCl (Labetalol 100 Mg Tablet) 100 mg PO BID [facility] Last Admin: 02/16/22 20:27 Dose: 100 mg Labetalol HCl (Labetalol 5 Mg/Ml Ml) 10 mg IV Q10M PRN PRN Reason: Hypertension Lactulose (Lactulose 20 Gm/30 Ml Oral.Nitza) 10 gm PO DAILYP PRN PRN Reason: Constipation Lidocaine (Lidocaine Patch) 1 patch TOPICAL DAILY@1000 [facility] Loperamide HCl (Loperamide 2 Mg Capsule) 2 mg PO PRN PRN PRN Reason: Diarrhea Last Admin: 02/17/22 06:02 Dose: 2 mg Lorazepam (Lorazepam 2 Mg/Ml Vial) 0 mg IV UD PRN; Protocol PRN Reason: Alcohol Withdrawal/Assess CIWA Last Admin: 02/16/22 12:00 Dose: 1 mg Lorazepam (Lorazepam 2 Mg/Ml Vial) 1 mg IV Q6HP PRN PRN Reason: Anxiety Last Admin: 02/16/22 23:09 Dose: 1 mg Losartan Potassium (Losartan 50 Mg Tablet) 100 mg PO DAILY [facility] Last Admin: 02/16/22 07:45 Dose: 100 mg Nicotine (Nicotine 21 Mg Patch) 21 mg TOPICAL DAILY@1000 [facility] Last Admin: 02/16/22 10:17 Dose: 21 mg Nicotine Polacrilex (Nicotine Polacrilex 2 Mg Gum) 2 mg CHEW/PARK Q4HP PRN PRN Reason: nicotine withdrawal Last Admin: 02/17/22 06:02 Dose: 2 mg Omeprazole (Omeprazole 20 Mg Capsule) 40 mg PO ACB [facility] Last Admin: 02/17/22 08:18 Dose: 40 mg Ondansetron HCl (Ondansetron 4 Mg/2 Ml Vial) 4 mg IV Q4HP PRN; Protocol PRN Reason: Nausea And Vomiting Oxycodone HCl (Oxycodone Hcl 5 Mg Tablet) 10 mg PO TID [facility]; Protocol Last Admin: 02/16/22 20:29 Dose: 10 mg Budesonide- Formoterol 160-4.5 Mcg/Actuation Hfa Inhaler 1 dose INH BID [facility] Last Admin: 02/16/22 20:28 Dose: Not Given Senna (Sennosides 1 Tablet) 2 tab PO HSP PRN PRN Reason: Constipation Sodium Chloride (0.9 % Sodium Chloride 10 Ml Syringe) 10 ml IV Q8 [facility] Last Admin: 02/17/22 06:04 Dose: 10 ml Sodium Chloride (0.9 % Sodium Chloride 10 Ml Syringe) 10 ml IV Q8 [facility] Last Admin: 02/17/22 06:04 Dose: Not Given Sodium Chloride (Sodium Chloride 1 Gm Tablet) 2 gm PO QID [facility] Last Admin: 02/16/22 20:31 Dose: 2 gm Thiamine HCl (Thiamine 100 Mg Tablet) 100 mg PO QDAY [facility] Last Admin: 02/16/22 07:45 Dose: 100 mg A/P Narrative A/P Narrative: Assessment: 61-year-old male with a history of hypertension, depression, PTSD, GERD, degenerative disc disease, chronic back pain, high risk alcohol use admitted for severe hyponatremia occurring in the setting of nausea, vomiting and watery diarrhea. Soon after admission, the patient developed alcohol withdrawal. C. difficile screen was negative, the patient was started on Imodium. Diarrhea improved. Sodium increased rapidly and D5 IV fluid was given briefly to slow the correction in sodium. Alcohol withdrawal improving, sodium improving. * Hypovolemic hyponatremia secondary to alcohol use and poor oral solute intake and concurrent thiazide use. Improved from 04 07-04 23, continue salt tabs, DC thiazide. * Severe alcohol use disorder no significant withdrawal. on gabapentin/clonidine and as needed Ativan * Diarrhea worsening with multiple watery stools, check C. difficile/stool cultures * Leukocytosis at 18, work-up including pancultures/C. difficile/chest x-ray * Essential hypertension, systolics at goal, on clonidine, ARB and thiazide on hold * History depression on duloxetine * GERD on PPI * Chronic pain on home dose oxycodone * Tobacco dependence, counseled for cessation Plan * Stool studies/chest x-ray/blood cultures * Continue salt tabs/encourage oral fluids * Pre-existing medical condition management as above * Prophylaxis Lovenox * Discharge once clinically stable and diarrhea resolves Time Spent With Patient Time: Total time spent is greater than 50% in coordination of care (as documented) at patient's floor/unit and/or counseling patient: QUALITY VTE Deep Vein Thrombosis/Pulmonary Embolism Present on Admission: No
[2022-02-17] MEDS: ENOXAPARIN 40 MG/0.4 ML SYRINGE SQ SCH (08:38)
[2022-02-17] MEDS: LOSARTAN 50 MG TABLET PO SCH (08:38)
[2022-02-17] MEDS: hydrOXYzine 25 MG TABLET PO SCH ×3 (08:39→20:19)
[2022-02-17] MEDS: SODIUM CHLORIDE 1 GM TABLET PO SCH ×4 (08:39→20:19)
[2022-02-17] MEDS: LABETALOL 100 MG TABLET PO SCH ×2 (08:39→20:19)
[2022-02-17] MEDS: oxyCODONE HCL 5 MG TABLET PO SCH (08:39)
[2022-02-17] MEDS: FOLIC ACID 1 MG TABLET PO SCH (08:40)
[2022-02-17] MEDS: GABAPENTIN 300 MG CAPSULE PO SCH ×2 (08:40→20:18)
[2022-02-17] MEDS: BACLOFEN 10 MG TABLET PO SCH ×4 (08:40→20:18)
[2022-02-17] MEDS: DULoxetine 30 MG CAPSULE PO SCH (08:41)
[2022-02-17] MEDS: BUDESONIDE FORMOTEROL INH SCH ×2 (08:41→20:06)
[2022-02-17] MEDS: DOCUSATE SODIUM 100 MG CAPSULE PO SCH ×2 (08:41→20:06)
[2022-02-17] MEDS: THIAMINE 100 MG TABLET PO SCH (08:41)
--- NOTE | 2022-02-17 08:50 | XRay Report ---
HISTORY: Short of breath FINDINGS: Subtle increased interstitial lung markings are present bilaterally. There is involvement in both lower lobes and centrally in the right lung. These abnormalities were better seen on the chest CT performed two days ago. These have remained stable with no progression. Lung volumes are normal and not hyperinflated. There is no consolidating infiltrate. No lung mass is detected. There are several bilateral rib fractures of varying age. The heart size is normal. No pleural effusion or pneumothorax are present. IMPRESSION: Stable nonspecific inflammatory and fibrotic changes in both lungs Interpreted and Authenticated by: Patricio Worthington 02/17/22
[2022-02-17] MEDS: cefTRIAXone 2 GM in DEXTROSE 5% IN WATER 50 ML IV SCH (10:08)
[2022-02-17] MEDS: NICOTINE 21 MG PATCH TOPICAL SCH (10:19)
[2022-02-17] MEDS: LIDOCAINE PATCH TOPICAL SCH (10:19)
[2022-02-17] MEDS: AZITHROMYCIN 500 MG in DEXTROSE 5% IN WATER 250 ML IV SCH (10:52)
[2022-02-17] MEDS: LORazepam 2 MG/ML VIAL IV PRN ×3 (11:22→20:18)
[2022-02-17] MEDS: oxyCODONE HCL 5 MG TABLET PO PRN ×2 (12:29→18:46)
[2022-02-17 12:56] LABS: Basophils # (Auto) 0.08 K/mcL (0.00-0.30); Basophils % (Auto) 0.8 % (0.0-2.0); Eosinophils # (Auto) 0.61 K/mcL (0.00-0.70); Eosinophils % (Auto) 5.8 % (0.0-7.0); Hematocrit 32.6 % (40.1-51.0); Hemoglobin 10.6 g/dL (13.7-17.5); Lymphocytes # (Auto) 1.12 K/mcL (1.50-4.80); Lymphocytes % (Auto) 10.7 % (15.5-49.0); Mean Cell Volume 88.1 fL (80.0-100.0); Mean Corpuscular HGB Conc 32.5 g/dL (31.0-36.0); Mean Platelet Volume 10.1 fL (8.8-12.5); Monocytes # (Auto) 1.05 K/mcL (0.10-0.90); Monocytes % (Auto) 10.1 % (1.0-12.0); Neutrophils % (Auto) 71.4 % (38.0-78.0); Platelet Count 214 K/mcL (140-440); WBC 10.4 K/mcL (4.5-11.0)
[2022-02-17] MEDS: guaiFENesin/DEXTROMETHORPHAN ORAL SOL PO PRN ×2 (14:38→21:40)
[2022-02-17] MEDS: BENZONATATE 100 MG CAPSULE PO PRN (18:46)
[2022-02-18] MEDS: oxyCODONE HCL 5 MG TABLET PO PRN ×2 (04:20→08:06)
[2022-02-18] MEDS: NICOTINE POLACRILEX 2 MG GUM CHEW/PARK PRN ×2 (04:21→07:23)
[2022-02-18] MEDS: 0.9 % SODIUM CHLORIDE 10 ML SYRINGE IV SCH (05:46)
[2022-02-18 07:11] LABS: Basophils # (Auto) 0.07 K/mcL (0.00-0.30); Basophils % (Auto) 0.9 % (0.0-2.0); Eosinophils # (Auto) 0.56 K/mcL (0.00-0.70); Hematocrit 29.9 % (40.1-51.0); Lymphocytes # (Auto) 1.15 K/mcL (1.50-4.80); Lymphocytes % (Auto) 14.4 % (15.5-49.0); Mean Cell Volume 85.4 fL (80.0-100.0); Mean Corpuscular HGB Conc 33.4 g/dL (31.0-36.0); Mean Platelet Volume 9.8 fL (8.8-12.5); Monocytes # (Auto) 0.79 K/mcL (0.10-0.90); Monocytes % (Auto) 9.9 % (1.0-12.0); Neutrophils % (Auto) 66.9 % (38.0-78.0); Platelet Count 215 K/mcL (140-440); Red Cell Distribution Width 12.8 % (11.5-14.5)
[2022-02-18] MEDS: hydrOXYzine 25 MG TABLET PO SCH (07:18)
[2022-02-18] MEDS: LORazepam 2 MG/ML VIAL IV PRN (07:23)
[2022-02-18 07:30] LABS: ALT/SGPT 11 U/L (<40); AST/SGOT 10 U/L (<40); Albumin 3.2 gm/dL (3.2-5.2); Albumin/Globulin Ratio 1.5 (1.0-2.3); Alkaline Phosphatase 99 U/L (39-117); Bilirubin,Total 0.2 mg/dL (0.1-1.0); Blood Urea Nitrogen 6 mg/dL (8-23); Calcium 8.4 mg/dL (8.6-10.4); Carbon Dioxide 25 mmol/L (22-30); Chloride 93 mmol/L (96-108); Globulin 2.2 gm/dL (2.2-3.7); Glomerular Filtration Rate 81; Glucose 89 mg/dL (70-105)
[2022-02-18] MEDS: DOCUSATE SODIUM 100 MG CAPSULE PO SCH (08:01)
[2022-02-18] MEDS: ENOXAPARIN 40 MG/0.4 ML SYRINGE SQ SCH (08:05)
[2022-02-18] MEDS: OMEPRAZOLE 20 MG CAPSULE PO SCH (08:05)
[2022-02-18] MEDS: FOLIC ACID 1 MG TABLET PO SCH (08:06)
[2022-02-18] MEDS: GABAPENTIN 300 MG CAPSULE PO SCH (08:06)
[2022-02-18] MEDS: LOSARTAN 50 MG TABLET PO SCH (08:06)
[2022-02-18] MEDS: BUDESONIDE FORMOTEROL INH SCH (08:07)
[2022-02-18] MEDS: THIAMINE 100 MG TABLET PO SCH (08:07)
[2022-02-18] MEDS: SODIUM CHLORIDE 1 GM TABLET PO SCH (08:21)
[2022-02-18] MEDS: NICOTINE 21 MG PATCH TOPICAL SCH (08:22)
[2022-02-18] MEDS: LABETALOL 100 MG TABLET PO SCH (08:22)
[2022-02-18] MEDS: BACLOFEN 10 MG TABLET PO SCH (08:22)
[2022-02-18] MEDS: DULoxetine 30 MG CAPSULE PO SCH (08:22)
[2022-02-18] MEDS: LIDOCAINE PATCH TOPICAL SCH (08:22)
[2022-02-18] MEDS: guaiFENesin/DEXTROMETHORPHAN ORAL SOL PO PRN (08:47)
--- NOTE | 2022-02-18 10:41 | Discharge Summary ---
Discharge Provider Provider IMPORTANT FOLLOW-UP INFORMATION FOR PCP: Patient information: Note initiated : 02/18/22 at 10:39 am Service Date, if different from initiated Date: [] Patient: Chau Salter 61 y/o M admitted on 02/13/22 for Nausea/Vomiting. Chief Complaint: [] Date of admission: 02/13/22 13:10 Discharge date: 02/18/22 Primary care physician: Alberto Morris Attending physician on admission: Alexey Wheeler Consults: 02/13/22 Consult to Physician [CONS] Stat Comment: Consulting Provider: Alexey Wheeler Reason For Exam: Physician to Consult Attending physician on discharge: Chi Jono Pui COURSE Hospital Course Hospital course: Mr. Salter is a 61-year-old male with a history of hypertension, depression, PTSD, GERD, degenerative disc disease, chronic back pain, high risk alcohol use Who presented to the emergency department for 3 days of nausea, vomiting and diarrhea. Patient says that the nausea and vomiting have mostly resolved but he continues to have profound watery diarrhea. He denies recent fevers chills, no sick contacts. The patient did have some mild abdominal discomfort but says that has resolved. The patient does drink 6 or more beers per day. In the emergency department, the patient was found to have a sodium level of 111. A CT abdomen pelvis with contrast was performed, report pending at the time of admission however the ED provider did receive a verbal report from the radiologist who said that it showed a gallstone but no evidence of cholecystitis and was otherwise unremarkable. Patient denies recent antibiotic use however in November 2021 he did have an upper respiratory tract infection that was treated with amoxicillin. 02/14 Tachycardic overnight, likely secondary to alcohol withdrawal. Sodium increased to 120 this morning then 123. Started D5 IV to slow sodium correction, will continue to follow sodium. Urine sodium was 10, urine osmolality 74. CIWA score 13 this morning. Patient receiving Ativan IV per CIWA score. C. difficile toxin was negative, started Imodium as needed for diarrhea. 02/15 Stable overnight, sodium decreased down to 113 then back to 120 this morning. We will continue to follow sodium, now off IV fluid. CIWA score this morning was 3. 02/16-patient doing a lot better. CIWA scoring minimal with no significant psychomotor agitation or hallucinations. Sodium up to 124, on oral salt tabs, continue nutrition support. Stable labs and hemodynamics, Ambulating, transfer to medical floor today 02/17-patient doing a lot better. On room air- 2 L oxygen to maintain sats, persistent diarrhea, sodium improved from 1 21-1 27, potassium improved from 3.4-4.2, improved psychomotor agitation, tremor, no telemetry events, required 1 dose of Ativan last night, on gabapentin clonidine, no overnight fever chills. No active hallucination. In discussion with patient he indicated that he has no desire to quit alcohol and would not want to undergo outpatient alcohol rehab. Dramatic rise in white count at 18.8, C. difficile/stool culture sent, check blood cultures/chest imaging 02/18: Discharged home. Discharge diagnosis: alcohol withdrawal; hyponatremia Time Spent with Patient Time attestation: Total time spent providing and/or coordinating discharge services: Time spent: Less than 30 minutes EXAM Constitutional Vitals: Temp Pulse Resp BP Pulse Ox O2 Del Method O2 Flow Rate 36.2 C 88 24 H 173/106 100 2 02/18/22 07:21 02/18/22 07:21 02/18/22 07:15 02/18/22 07:21 02/18/22 07:21 02/18/22 08:00 02/17/22 04:14 General appearance: cooperative and no acute distress Head Head exam: Present atraumatic and normocephalic Eye Eye exam: Present EOMI and PERRL ENT ENT exam: Present mucous membranes moist, normal exam and normal external ear exam Neck Neck exam: Present normal inspection; Absent lymphadenopathy, tenderness or thyromegaly Respiratory Respiratory exam: Absent accessory muscle use, respiratory distress or wheezes Cardiovascular Cardiovascular exam: Present normal rate and rhythm; Absent JVD GI/Abdominal GI/Abdominal exam: Present normal bowel sounds and soft; Absent organomegaly or tenderness Rectal Rectal exam: Present deferred Extremities Exam Extremities exam: Present full ROM, normal capillary refill and normal inspection; Absent tenderness Neurological Exam Neurological exam: Present alert, CN II-XII intact and oriented X3; Absent motor sensory deficit Additional comments: increased bilateral hand tremors Psychiatric Psychiatric exam: Present normal affect and normal mood; Absent anxious or depressed Skin Skin exam: Present dry and intact Discharge Data Data Completed and Pending Labs on day of discharge: Labs from last 24 hours 02/18/22 02/18/22 02/17/22 04:58 04:58 05:00 WBC 8.0 10.4 RBC 3.50 L 3.70 L Hgb 10.0 L 10.6 L Hct 29.9 L 32.6 L MCV 85.4 88.1 MCH 28.6 28.6 MCHC 33.4 32.5 RDW 12.8 13.0 Plt Count 215 214 MPV 9.8 10.1 Immature Gran % (Auto) 0.9 H 1.2 H Neut % (Auto) 66.9 71.4 Lymph % (Auto) 14.4 L 10.7 L [place] % (Auto) 9.9 10.1 Eos % (Auto) 7.0 5.8 Baso % (Auto) 0.9 0.8 Lymph # (Auto) 1.15 L 1.12 L [place] # (Auto) 0.79 1.05 H Eos # (Auto) 0.56 0.61 Baso # (Auto) 0.07 0.08 Immature Gran # 0.07 H 0.13 H Absolute Neutrophils 5.32 7.44 Sodium 126 L Potassium 3.5 Chloride 93 L Carbon Dioxide 25 Anion Gap 8.0 BUN 6 L Creatinine 1.0 GFR Calculation 81 Glucose 89 Calcium 8.4 L Total Bilirubin 0.2 AST 10 ALT 11 Alkaline Phosphatase 99 Total Protein 5.4 L Albumin 3.2 Globulin 2.2 Albumin/Globulin Ratio 1.5 Preliminary micro results at discharge 02/17/22 09:40 Blood Culture - Preliminary Blood 02/17/22 09:33 Blood Culture - Preliminary Blood Discharge Plan Patient/Caregiver Discharge Instructions Activity: increase activity as tolerated Diet: Regular Diet Instructions: Hyponatremia (GEN), Abuse of Alcohol (GEN) Prescriptions: New dextromethorphan-guaifenesin [Diabetic Tussin DM] 10-100 mg/5 mL Liquid 10 ml PO Q4HP PRN (Reason: Cough) Qty: 500 1RF loperamide 2 mg Capsule 2 mg PO PRN PRN (Reason: Diarrhea) Qty: 20 0RF nicotine (polacrilex) 2 mg Gum 2 mg CHEW/PARK Q4HP PRN (Reason: nicotine withdrawal) Qty: 21 0RF lidocaine 5 % Adhesive Patch,Medicated 1 patch topical DAILY@1000 Qty: 10 0RF nicotine 21 mg/24 hr Patch 24 Hour 21 mg topical DAILY@1000 Qty: 21 0RF folic acid 1 mg Tablet 1 mg PO DAILY Qty: 30 0RF thiamine mononitrate (vit B1) 100 mg Tablet 100 mg PO QDAY Qty: 30 0RF Continued gabapentin 300 MG capsule 300 mg PO DAILY Rx Instructions: 300mg QAM and 600mg QHS duloxetine [Cymbalta] 60 mg capsule,delayed release(DR/EC) 60 mg PO QDAY clonidine 0.1 mg/24 hr patch weekly 1 patch transdermal WEEKLY Rx Instructions: Apply on Fridays baclofen 10 mg tablet 1 tab PO QID hydroxyzine HCl 25 mg tablet 1 tab PO TID testosterone cypionate 200 mg/mL oil 0.5 ml IM WEEKLY labetalol 100 mg tablet 1 tab PO BID ondansetron 4 mg tablet,disintegrating 1 tab PO Q6HP PRN (Reason: Nausea) irbesartan 300 mg tablet 1 tab PO QDAY esomeprazole magnesium 40 mg capsule,delayed release(DR/EC) 1 cap PO QDAY gabapentin 300 mg Capsule 600 mg PO QHS albuterol sulfate 90 mcg/actuation HFA aerosol inhaler 2 puff INHALATION Q4HP PRN (Reason: Wheezing) budesonide-formoterol [Symbicort] 160-4.5 mcg/actuation HFA aerosol inhaler 2 puff INHALATION BID oxycodone 10 mg tablet 1 tab PO TID Qty: 20 0RF Discontinued hydrochlorothiazide 12.5 mg tablet 1 tab PO QDAY Follow Up Plan Follow up with: Alberto Morris DO [Primary Care Provider] - Patient Disposition: Home, Self-Care Prognosis: Serious Rehab Potential: Good I certify that the patient requires SNF services: No Overall status at discharge: patient is back to baseline Discharge Orders: Discharge Order (Routine); Ordered 02/18/22 Ordered By: Binu QUEZADA VTE Deep Vein Thrombosis/Pulmonary Embolism Present on Admission: No
== END 2022-02-18 11:20 | disposition home or self-care (01) | DRG 641 ==
LOC: ED 09:03 → ICU 13:10
PROVIDERS: ADMIT Internal Medicine; ATTEND Internal Medicine

== ENCOUNTER 2022-04-26 20:05 | Inpatient (IN) ==
[2022-04-26] MEDS ORDERED: ASPIRIN 81 MG TAB.CHEW CHEWED ONE ×2 (20:13→20:14)
[2022-04-26 20:20] LABS: POC Creatinine 1.4 (0.6-1.2); POC Potassium 2.4 (3.3-5.1)
[2022-04-26] MEDS ORDERED: LORazepam 2 MG/ML VIAL IV ONE ×2 (20:21→22:00)
--- NOTE | 2022-04-26 20:29 | Emergency Department Note ---
Chest Pain HPI General Chief Complaint: Chest Pain Stated Complaint: chest pain Time Seen by Provider: 04/26/22 20:14 Source: patient Mode of arrival: ambulatory Limitations: no limitations History of Present Illness HPI Narrative: Narrative: This 61-year-old male presents complaining of "shortness of breath". He denies chest pain except for a tenderness in his left llateral chest produced by having to crawl through his window, and fell injuring a rib about 2 weeks ago. This area is tender to compression. He states he has not been able to sleep for the last 3 days, and has not been able to eat over the weekend. He admits to daily drinking. He last drank a shot of liquor this afternoon.. His past medical history is positive for alcoholism, previous alcohol withdrawal without seizures, COPD, GERD, a previous concussion and hypertension. He endorses nausea, headache, sweats and tremors. He denies visual auditory or tactile hallucinations. He denies vomiting. CIWA = 15 Related Data Home Medications Medication Instructions Recorded Confirmed gabapentin 300 mg capsule 300 mg PO DAILY 01/16/15 04/06/22 baclofen 10 mg tablet 1 tab PO QID 07/06/21 04/06/22 clonidine 0.1 mg/24 hr weekly 1 patch transdermal WEEKLY 07/06/21 04/06/22 transdermal patch hydroxyzine HCl 25 mg tablet 1 tab PO TID 07/06/21 04/06/22 irbesartan 300 mg tablet 1 tab PO QDAY 07/06/21 04/06/22 labetalol 100 mg tablet 1 tab PO BID 07/06/21 04/06/22 ondansetron 4 mg disintegrating 1 tab PO Q6HP PRN Nausea 07/06/21 04/06/22 tablet testosterone cypionate 200 mg/mL 0.5 ml IM WEEKLY 07/06/21 04/06/22 intramuscular oil duloxetine 60 mg capsule,delayed 60 mg PO QDAY 01/12/22 04/06/22 release (Cymbalta) albuterol sulfate 90 mcg/actuation 2 puff inhalation Q4HP PRN Wheezing 02/13/22 04/06/22 aerosol inhaler budesonide-formoterol HFA 160 2 puff inhalation BID 02/13/22 04/06/22 mcg-4.5 mcg/actuation aerosol inhaler (Symbicort) esomeprazole magnesium 40 mg 1 cap PO QDAY 02/13/22 04/06/22 capsule,delayed release gabapentin 300 mg capsule 600 mg PO QHS 02/13/22 04/06/22 Previous Rx's Medication Instructions Recorded dextromethorphan-guaifenesin 10 10 ml PO Q4HP PRN Cough #500 mL 02/18/22 mg-100 mg/5 mL oral liquid (Diabetic Tussin DM) folic acid 1 mg tablet 1 mg PO DAILY #30 tabs 02/18/22 lidocaine 5 % topical patch 1 patch topical DAILY@1000 #10 ea 02/18/22 loperamide 2 mg capsule 2 mg PO PRN PRN Diarrhea #20 caps 02/18/22 nicotine (polacrilex) 2 mg gum 2 mg CHEW/PARK Q4HP PRN nicotine 02/18/22 withdrawal #21 ea nicotine 21 mg/24 hr daily 21 mg topical DAILY@1000 #21 ea 02/18/22 transdermal patch oxycodone 10 mg tablet 1 tab PO TID #20 tabs 02/18/22 thiamine mononitrate (vit B1) 100 100 mg PO QDAY #30 tabs 02/18/22 mg tablet naloxone 4 mg/actuation nasal 4 mg intranasal Q2-3M PRN opioid 04/06/22 spray (Narcan) overdose #2 ea oxycodone 10 mg tablet 10 mg PO TID PRN pain #90 tabs 04/06/22 Allergies Allergy/AdvReac Type Severity Reaction Status Date / Time No Known Drug Allergies Allergy Verified 04/26/22 20:05 Review of Systems ROS ROS Narrative: Narrative: All systems ED: reviewed and negative except as stated. [facility] Narrative Patient History Narrative: Narrative: Medical/Surgical/Family History All Active Problems (Updated 03/18/22 @ 02:42 by Josh Rowe MD) Acute hyponatremia (Acute) Alcohol withdrawal (Acute) Leukocytosis (Acute) Acute dehydration (Acute) Acute exacerbation of chronic obstructive airways disease (Acute) Acute hyponatremia (Acute) Diarrhea (Acute) Alcohol withdrawal (Acute) Lumbar radiculopathy (Acute) Cervical spondylosis with radiculopathy (Chronic) DDD (degenerative disc disease), lumbosacral (Chronic) Lumbar stenosis with neurogenic claudication (Chronic) GERD (gastroesophageal reflux disease) (Chronic) Osteoarthritis of more than one site (Chronic) Bronchitis (Chronic) Psychiatric illness (Chronic) Vision problem (Chronic) Pneumonia (Chronic) Neck injury (Chronic) Headache (Chronic) Hearing problem (Chronic) Depression (Chronic) Concussion (Chronic) Essential hypertension (Chronic) Hypogonadism (Chronic) Posttraumatic stress disorder (Chronic) Arthritis (Chronic) Idiopathic peripheral neuropathy (Chronic) Normocytic anemia (Chronic) Chronic pain (Chronic) Community acquired pneumonia (Acute) Sepsis (Acute) Severe sepsis with acute organ dysfunction (Acute) Anxiety (Acute) Alcohol withdrawal (Acute) Acute hyponatremia (Acute) Medical History Anxiety Arthritis Bronchitis Cervical spondylosis with radiculopathy Chronic pain Community acquired pneumonia Concussion DDD (degenerative disc disease), lumbosacral Depression Essential hypertension GERD (gastroesophageal reflux disease) Headache Hearing problem Hypogonadism Idiopathic peripheral neuropathy Lumbar radiculopathy Lumbar stenosis with neurogenic claudication Neck injury Normocytic anemia Osteoarthritis of more than one site Pneumonia Posttraumatic stress disorder Psychiatric illness Sepsis Severe sepsis with acute organ dysfunction Vision problem Surgical History History of knee surgery right ACL/PCL reconstruction History of lumbar surgery discectomy x2 Family History Mother Atrial flutter Hypertension Father Heart disease Hypertension Social History Smoking Status: Former smoker and Smokeless tobacco Alcohol Intake Frequency: 2+ drinks per day Substance Use: does not use Exam Narrative Narrative: Narrative: General: Patient very shaky with tremulous voice but not dyspneic. Oriented x3, answers questions cogently. Has a severe resting shake and moderate diaphoresis. Negative for liver flap. lungs: Clear to auscultation without rales rhonchi or wheezes. Cardiovascular regular rate and rhythm without murmurs clicks rubs or gallops chest wall is tender over the left axilla. General Limitations: no limitations Course Vital Signs Vital signs: Vital Signs Pulse Rate 93 H 04/26/22 20:05 Oxygen Delivery Method Room Air 04/26/22 20:05 Temperature 98.4 F 04/26/22 20:11 Pulse Rate 93 H 04/26/22 22:01 Respiratory Rate 30 H 04/26/22 22:46 Blood Pressure 148/128 04/26/22 22:46 Pulse Oximetry (%) 96 04/26/22 22:01 Oxygen Delivery Method Room Air 04/26/22 20:05 [facility] MDM Narrative Medical decision making narrative: Narrative: EKG was read and showed a sinus rhythm with a rate of 99 and no acute ischemic changes, unchanged from that taken on 03/18. Chest x-ray showed no acute infiltrates. Patient's blood work showed a white count of 12.6 with a hemoglobin hematocrit of 13.1/ 40; potassium was originally 2.4, and he was given 40 mequivalents of potassium, as well as magnesium. With initial CIWA of 15 the patient seems like he is in the middle of alcohol withdrawal. On reexamination at 2200 hrs. the patient is now talking about a sensation of something compressing both his thighs, so his CIWA goes up to 16. He was retreated with lorazepam 2 mg IV as well as a banana bag. At 2300 hrs. the patient was talking loudly in his sleep but not hallucinating. Assessment of alcohol withdrawal was diagnosed and the patient was admitted for overnight observation. Sepsis Sepsis Identified: No Lab Data 04/26/22 20:21 Labs: Lab Results 04/26/22 04/26/22 04/26/22 Range/Units 20:13 20:15 20:21 WBC 12.6 H (4.5-11.0) K/mcL RBC 4.68 (4.63-6.08) M/mcL Hgb 13.1 L (13.7-17.5) g/dL Hct 40.0 L (40.1-51.0) % POC Hct 42.0 (41-55) MCV 85.5 (80.0-100.0) fL MCH 28.0 (26.0-34.0) pg MCHC 32.8 (31.0-36.0) g/dL RDW 13.6 (11.5-14.5) % Plt Count 436 (140-440) K/mcL MPV 10.5 (8.8-12.5) fL Immature Gran % (Auto) 0.5 (0.0-0.5) % Neut % (Auto) 75.6 (38.0-78.0) % Lymph % (Auto) 13.1 L (15.5-49.0) % [place] % (Auto) 8.6 (1.0-12.0) % Eos % (Auto) 1.3 (0.0-7.0) % Baso % (Auto) 0.9 (0.0-2.0) % Lymph # (Auto) 1.66 (1.50-4.80) K/mcL [place] # (Auto) 1.09 H (0.10-0.90) K/mcL Eos # (Auto) 0.16 (0.00-0.70) K/mcL Baso # (Auto) 0.11 (0.00-0.30) K/mcL Immature Gran # 0.06 H (0.00-0.05) K/mcl Absolute Neutrophils 9.55 H (1.80-8.00) K/mcL D-Dimer (0.27-0.50) ug/mL POC Sodium 134 (133-145) POC Potassium 2.4 L* (3.3-5.1) POC Chloride 93 L (96-108) POC Total CO2 29.0 (22-30) POC BUN 12 (6-20) POC Creatinine 1.4 H (0.6-1.2) POC Glucose 108 H (70-105) POC WB Ioniz Calcium 1.00 L (1.16-1.32) Total Bilirubin (0.1-1.0) mg/dL Direct Bilirubin (<0.3) mg/dL AST (<40) U/L ALT (<40) U/L Alkaline Phosphatase (39-117) U/L NT-Pro-B Natriuret Pep (<125.0) pg/mL Total Protein (5.9-8.4) gm/dL Albumin (3.2-5.2) gm/dL Globulin (2.2-3.7) gm/dL POC Troponin I < 0.02 (0.00-0.08) 04/26/22 04/26/22 Range/Units 20:21 20:22 WBC (4.5-11.0) K/mcL RBC (4.63-6.08) M/mcL Hgb (13.7-17.5) g/dL Hct (40.1-51.0) % POC Hct (41-55) MCV (80.0-100.0) fL MCH (26.0-34.0) pg MCHC (31.0-36.0) g/dL RDW (11.5-14.5) % Plt Count (140-440) K/mcL MPV (8.8-12.5) fL Immature Gran % (Auto) (0.0-0.5) % Neut % (Auto) (38.0-78.0) % Lymph % (Auto) (15.5-49.0) % [place] % (Auto) (1.0-12.0) % Eos % (Auto) (0.0-7.0) % Baso % (Auto) (0.0-2.0) % Lymph # (Auto) (1.50-4.80) K/mcL [place] # (Auto) (0.10-0.90) K/mcL Eos # (Auto) (0.00-0.70) K/mcL Baso # (Auto) (0.00-0.30) K/mcL Immature Gran # (0.00-0.05) K/mcl Absolute Neutrophils (1.80-8.00) K/mcL D-Dimer 0.27 (0.27-0.50) ug/mL POC Sodium (133-145) POC Potassium (3.3-5.1) POC Chloride (96-108) POC Total CO2 (22-30) POC BUN (6-20) POC Creatinine (0.6-1.2) POC Glucose (70-105) POC WB Ioniz Calcium (1.16-1.32) Total Bilirubin 0.9 (0.1-1.0) mg/dL Direct Bilirubin 0.2 (<0.3) mg/dL AST 25 (<40) U/L ALT 14 (<40) U/L Alkaline Phosphatase 132 H (39-117) U/L NT-Pro-B Natriuret Pep 1342.0 H (<125.0) pg/mL Total Protein 6.9 (5.9-8.4) gm/dL Albumin 4.1 (3.2-5.2) gm/dL Globulin 2.8 (2.2-3.7) gm/dL POC Troponin I (0.00-0.08) Discharge Plan Patient/Caregiver Discharge Instructions Follow up with: No,PCP [Primary Care Provider] - Prescriptions: No Action oxycodone 10 mg tablet 10 mg PO TID PRN (Reason: pain) Qty: 90 0RF naloxone [Narcan] 4 mg/actuation spray,non-aerosol 4 mg intranasal Q2-3M PRN (Reason: opioid overdose) Qty: 2 0RF Rx Instructions: spray 1 dose into ONE nostril; alternate nostrils w each dose gabapentin 300 MG capsule 300 mg PO DAILY Rx Instructions: 300mg QAM and 600mg QHS duloxetine [Cymbalta] 60 mg capsule,delayed release(DR/EC) 60 mg PO QDAY clonidine 0.1 mg/24 hr patch weekly 1 patch transdermal WEEKLY Rx Instructions: Apply on Fridays baclofen 10 mg tablet 1 tab PO QID hydroxyzine HCl 25 mg tablet 1 tab PO TID testosterone cypionate 200 mg/mL oil 0.5 ml IM WEEKLY labetalol 100 mg tablet 1 tab PO BID ondansetron 4 mg tablet,disintegrating 1 tab PO Q6HP PRN (Reason: Nausea) irbesartan 300 mg tablet 1 tab PO QDAY esomeprazole magnesium 40 mg capsule,delayed release(DR/EC) 1 cap PO QDAY gabapentin 300 mg Capsule 600 mg PO QHS albuterol sulfate 90 mcg/actuation HFA aerosol inhaler 2 puff INHALATION Q4HP PRN (Reason: Wheezing) budesonide-formoterol [Symbicort] 160-4.5 mcg/actuation HFA aerosol inhaler 2 puff INHALATION BID dextromethorphan-guaifenesin [Diabetic Tussin DM] 10-100 mg/5 mL Liquid 10 ml PO Q4HP PRN (Reason: Cough) Qty: 500 1RF loperamide 2 mg Capsule 2 mg PO PRN PRN (Reason: Diarrhea) Qty: 20 0RF nicotine (polacrilex) 2 mg Gum 2 mg CHEW/PARK Q4HP PRN (Reason: nicotine withdrawal) Qty: 21 0RF lidocaine 5 % Adhesive Patch,Medicated 1 patch topical DAILY@1000 Qty: 10 0RF nicotine 21 mg/24 hr Patch 24 Hour 21 mg topical DAILY@1000 Qty: 21 0RF folic acid 1 mg Tablet 1 mg PO DAILY Qty: 30 0RF thiamine mononitrate (vit B1) 100 mg Tablet 100 mg PO QDAY Qty: 30 0RF oxycodone 10 mg tablet 1 tab PO TID Qty: 20 0RF
[2022-04-26] MEDS ORDERED: POTASSIUM CHLORIDE 40 MEQ in DEXTROSE 5% IN WATER 500 ML IV ONE (20:34)
[2022-04-26] MEDS ORDERED: MAGNESIUM SULFATE 8.12 MEQ/2 ML VIAL IV STA (20:35)
[2022-04-26] MEDS ORDERED: POTASSIUM CHLORIDE 20 MEQ/10 ML VIAL IV ONE (20:46)
[2022-04-26 21:23] LABS: Basophils # (Auto) 0.11 K/mcL (0.00-0.30); Basophils % (Auto) 0.9 % (0.0-2.0); Eosinophils # (Auto) 0.16 K/mcL (0.00-0.70); Eosinophils % (Auto) 1.3 % (0.0-7.0); Hemoglobin 13.1 g/dL (13.7-17.5); Lymphocytes # (Auto) 1.66 K/mcL (1.50-4.80); Lymphocytes % (Auto) 13.1 % (15.5-49.0); Mean Cell Volume 85.5 fL (80.0-100.0); Mean Corpuscular HGB Conc 32.8 g/dL (31.0-36.0); Mean Platelet Volume 10.5 fL (8.8-12.5); Monocytes # (Auto) 1.09 K/mcL (0.10-0.90); Monocytes % (Auto) 8.6 % (1.0-12.0); Neutrophils % (Auto) 75.6 % (38.0-78.0); Platelet Count 436 K/mcL (140-440); RBC 4.68 M/mcL (4.63-6.08); Red Cell Distribution Width 13.6 % (11.5-14.5); WBC 12.6 K/mcL (4.5-11.0)
[2022-04-26 21:55] LABS: ALT/SGPT 14 U/L (<40); AST/SGOT 25 U/L (<40); Albumin 4.1 gm/dL (3.2-5.2); Alkaline Phosphatase 132 U/L (39-117); Bilirubin,Direct 0.2 mg/dL (<0.3); Bilirubin,Total 0.9 mg/dL (0.1-1.0); Globulin 2.8 gm/dL (2.2-3.7)
[2022-04-26] MEDS ORDERED: LACTULOSE 20 GM/30 ML ORAL.SOL PO PRN (23:29)
[2022-04-26] MEDS ORDERED: LORazepam 2 MG/ML VIAL IV PRN (23:29)
[2022-04-26] MEDS ORDERED: ONDANSETRON 4 MG/2 ML VIAL IV PRN (23:29)
[2022-04-26 23:50] LABS: Alcohol, Blood < 10.0 mg/dL; Alcohol,Blood < 0.010 gm/dL (<0.010)
[2022-04-27] MEDS ORDERED: LORazepam 2 MG/ML VIAL ONE (01:47)
[2022-04-27] MEDS: LORazepam 2 MG/ML VIAL IV PRN ×4 (01:49→19:52)
--- NOTE | 2022-04-27 05:25 | XRay Report ---
INDICATION: Chest Pain TECHNIQUE: AP portable semiupright chest x-ray COMPARISON: Previous chest x-rays dated 03/04/2022, 02/17/2022 FINDINGS: Lungs:Lungs are negative. No focal pulmonary parenchymal infiltrate or mass Heart, vascular:No significant cardiomegaly. Pulmonary vascularity is normal. No pulmonary edema or pulmonary congestion Mediastinum, khris:No mediastinal widening. No hilar mass Pleura:No pleural fluid. No pleural-based mass or calcification Skeletal:Nonacute healed right and left rib fractures. No acute fracture identified. IMPRESSION: 1. Bilateral healed rib fractures. 2. No acute abnormality. No interval change Interpreted and Authenticated by: Elias Tracey 04/27/22
[2022-04-27] MEDS ORDERED: 0.9 % SODIUM CHLORIDE 10 ML SYRINGE IV SCH ×2 (06:00→14:00)
--- NOTE | 2022-04-27 08:57 | EKG ---
[facility] Test Date: 2022-04-26 Pat Name: Chau Salter Department: ED Room: Gender: Male [facility] Dentist: SE : 1960 Requested By: Alberto Walsh Order Number: [id number] Reading MD: Elias Worthington M.D. Measurements Intervals Odell Rate: 99 P: 32 NV: 174 QRS: -35 QRSD: 91 T: 13 QT: 412 QTc: 528 Interpretive Statements Sinus rhythm Left axis deviation Baseline wander in lead(s) V1-V5 Electronically Signed On 04-27-2022 8:57:49 PST by Elias Worthington M.D. /store/M0/[id number]
[2022-04-27] MEDS ORDERED: DOCUSATE SODIUM 100 MG CAPSULE PO SCH (09:00)
[2022-04-27] MEDS ORDERED: LACTULOSE 20 GM/30 ML ORAL.SOL PO PRN (09:12)
[2022-04-27] MEDS ORDERED: IPRATROPIUM/ALBUTEROL 3 ML AMPUL.NEB NEB PRN (09:12)
[2022-04-27] MEDS ORDERED: HALOPERIDOL LACTATE 5 MG/ML VIAL IV PRN (09:12)
[2022-04-27] MEDS ORDERED: ACETAMINOPHEN 325 MG TABLET PO PRN (09:12)
[2022-04-27] MEDS ORDERED: ONDANSETRON 4 MG/2 ML VIAL IV PRN (09:12)
[2022-04-27] MEDS ORDERED: cloNIDine HCL 0.1 MG TABLET PO PRN (09:12)
--- NOTE | 2022-04-27 09:19 | Internal Med History&Physical ---
HPI History of Present Illness Patient information: Note initiated : 04/27/22 at 9:12 am Service Date, if different from initiated Date: [] Patient: Chau Salter 61 y/o M admitted on 04/27/22 for chest pain. Chief Complaint: [Legs heaviness] Chief complaint: legs heaviness History of present illness: Mr. Salter is a 61 year old M history of alcoholism, essential hypertensions, presenting with leg heaviness. Patient presented to the ED last night with chief complaint of leg heaviness. He is also an alcoholic and he stated that he drinks 2 shots of vodka per day but I highly doubt that. His last drink was claimed to be the day before yesterday. Serum alcohol level at ED <0.01. His CIWA score at ED presentation was 17. His CIWA score this morning 5. Remarkable labs including serum potassium level 2.4. Patient denies any insomnia last night. He is complaining of anxiety but denies any agitations. He is showing increased hand tremors. He denies any visual or auditory hallucinations. Admission request called for delirium tremens. Constitutional Constitutional: Absent chills, excessive sweating, fatigue, fever(s) or weakness EENT Eyes: Absent blurry vision, change in vision, loss of vision or other visual disturbances Ears: Absent decreased hearing or tinnitus Nose, mouth and throat: Absent abnormal hearing, dry mouth, headache(s), nasal congestion or sore throat Cardiovascular Cardiovascular: Absent chest pain, chest pain at rest, edema, irregular heart rhythm or palpatations Respiratory Respiratory: Absent cough, dyspnea or wheezing Gastrointestinal Gastrointestinal: Absent abdominal pain, constipation, diarrhea, nausea or vomiting Musculoskeletal Musculoskeletal: Absent back pain, deformity, limited range of motion, muscle cramps, muscle weakness or numbness Additional comments: legs heaviness Integumentary Integumentary: Absent lesions, rash or wounds Neurological Neurological: Absent focal weakness, headache(s) or numbness Psychiatric Psychiatric: Present anxiety; Absent depression or hallucinations PFSH PFSH All Active Problems (Updated 04/27/22 @ 09:16 by Binu Kumar MD) Hypokalemia (Acute) Delirium tremens (Acute) Acute hyponatremia (Acute) Alcohol withdrawal (Acute) Leukocytosis (Acute) Acute dehydration (Acute) Acute exacerbation of chronic obstructive airways disease (Acute) Acute hyponatremia (Acute) Diarrhea (Acute) Alcohol withdrawal (Acute) Alcohol withdrawal (Acute) Lumbar radiculopathy (Acute) Cervical spondylosis with radiculopathy (Chronic) DDD (degenerative disc disease), lumbosacral (Chronic) Lumbar stenosis with neurogenic claudication (Chronic) GERD (gastroesophageal reflux disease) (Chronic) Osteoarthritis of more than one site (Chronic) Bronchitis (Chronic) Psychiatric illness (Chronic) Vision problem (Chronic) Pneumonia (Chronic) Neck injury (Chronic) Headache (Chronic) Hearing problem (Chronic) Depression (Chronic) Concussion (Chronic) Essential hypertension (Chronic) Hypogonadism (Chronic) Posttraumatic stress disorder (Chronic) Arthritis (Chronic) Idiopathic peripheral neuropathy (Chronic) Normocytic anemia (Chronic) Chronic pain (Chronic) Community acquired pneumonia (Acute) Sepsis (Acute) Severe sepsis with acute organ dysfunction (Acute) Anxiety (Acute) Alcohol withdrawal (Acute) Acute hyponatremia (Acute) Medical History Anxiety Arthritis Bronchitis Cervical spondylosis with radiculopathy Chronic pain Community acquired pneumonia Concussion DDD (degenerative disc disease), lumbosacral Depression Essential hypertension GERD (gastroesophageal reflux disease) Headache Hearing problem Hypogonadism Idiopathic peripheral neuropathy Lumbar radiculopathy Lumbar stenosis with neurogenic claudication Neck injury Normocytic anemia Osteoarthritis of more than one site Pneumonia Posttraumatic stress disorder Psychiatric illness Sepsis Severe sepsis with acute organ dysfunction Vision problem Surgical History History of knee surgery right ACL/PCL reconstruction History of lumbar surgery discectomy x2 Family History Mother Atrial flutter Hypertension Father Heart disease Hypertension Social History (Updated 01/12/22 @ 16:05 by Emma Koehler) marital status: education level: college occupational status: disabled smoking status: Smokeless tobacco alcohol intake frequency: 2+ drinks per day substance use type: does not use MEDS/ALLERGIES Home Medications and Allergies Home Medications Medication Instructions Recorded Confirmed Type gabapentin 300 mg capsule 300 mg PO DAILY 01/16/15 04/06/22 History baclofen 10 mg tablet 1 tab PO QID 07/06/21 04/06/22 History clonidine 0.1 mg/24 hr weekly 1 patch transdermal WEEKLY 07/06/21 04/06/22 History transdermal patch hydroxyzine HCl 25 mg tablet 1 tab PO TID 07/06/21 04/06/22 History irbesartan 300 mg tablet 1 tab PO QDAY 07/06/21 04/06/22 History labetalol 100 mg tablet 1 tab PO BID 07/06/21 04/06/22 History ondansetron 4 mg disintegrating 1 tab PO Q6HP PRN Nausea 07/06/21 04/06/22 History tablet testosterone cypionate 200 mg/mL 0.5 ml IM WEEKLY 07/06/21 04/06/22 History intramuscular oil duloxetine 60 mg capsule,delayed 60 mg PO QDAY 01/12/22 04/06/22 History release (Cymbalta) albuterol sulfate 90 mcg/actuation 2 puff inhalation Q4HP PRN Wheezing 02/13/22 04/06/22 History aerosol inhaler budesonide-formoterol HFA 160 2 puff inhalation BID 02/13/22 04/06/22 History mcg-4.5 mcg/actuation aerosol inhaler (Symbicort) esomeprazole magnesium 40 mg 1 cap PO QDAY 02/13/22 04/06/22 History capsule,delayed release gabapentin 300 mg capsule 600 mg PO QHS 02/13/22 04/06/22 History dextromethorphan-guaifenesin 10 10 ml PO Q4HP PRN Cough #500 mL 02/18/22 04/06/22 Rx mg-100 mg/5 mL oral liquid (Diabetic Tussin DM) folic acid 1 mg tablet 1 mg PO DAILY #30 tabs 02/18/22 04/06/22 Rx lidocaine 5 % topical patch 1 patch topical DAILY@1000 #10 ea 02/18/22 04/06/22 Rx loperamide 2 mg capsule 2 mg PO PRN PRN Diarrhea #20 caps 02/18/22 04/06/22 Rx nicotine (polacrilex) 2 mg gum 2 mg CHEW/PARK Q4HP PRN nicotine 02/18/22 04/06/22 Rx withdrawal #21 ea nicotine 21 mg/24 hr daily 21 mg topical DAILY@1000 #21 ea 02/18/22 04/06/22 Rx transdermal patch oxycodone 10 mg tablet 1 tab PO TID #20 tabs 02/18/22 04/06/22 Rx thiamine mononitrate (vit B1) 100 100 mg PO QDAY #30 tabs 02/18/22 04/06/22 Rx mg tablet naloxone 4 mg/actuation nasal 4 mg intranasal Q2-3M PRN opioid 04/06/22 04/06/22 Rx spray (Narcan) overdose #2 ea oxycodone 10 mg tablet 10 mg PO TID PRN pain #90 tabs 04/06/22 04/06/22 Rx Allergies Allergy/AdvReac Type Severity Reaction Status Date / Time No Known Drug Allergies Allergy Verified 04/26/22 20:05 EXAM Constitutional Vitals: Temp Pulse Resp BP Pulse Ox O2 Del Method 36.2 C 79 19 162/108 97 Room Air 04/27/22 07:29 04/27/22 08:00 04/27/22 08:00 04/27/22 08:00 04/27/22 08:00 04/27/22 08:00 General appearance: cooperative, disheveled and no acute distress Head Head exam: Present atraumatic and normocephalic Eye Eye exam: Present EOMI and PERRL ENT ENT exam: Present mucous membranes moist, normal exam and normal external ear exam Neck Neck exam: Present normal inspection; Absent lymphadenopathy, tenderness or thyromegaly Respiratory Respiratory exam: Absent accessory muscle use, respiratory distress or wheezes Cardiovascular Cardiovascular exam: Present normal rate and rhythm; Absent JVD GI/Abdominal GI/Abdominal exam: Present normal bowel sounds and soft; Absent organomegaly or tenderness Rectal Rectal exam: Present deferred Extremities Exam Extremities exam: Present full ROM, normal capillary refill and normal inspection; Absent tenderness Additional comments: Increased hand tremors Neurological Exam Neurological exam: Present alert, CN II-XII intact and oriented X3; Absent motor sensory deficit Psychiatric Psychiatric exam: Present normal affect and normal mood; Absent anxious or depressed Skin Skin exam: Present dry and intact DATA Data Completed and Pending Labs: Labs from last 24 hours 04/26/22 04/26/22 04/26/22 20:22 20:21 20:21 WBC RBC Hgb Hct POC Hct MCV MCH MCHC RDW Plt Count MPV Immature Gran % (Auto) Neut % (Auto) Lymph % (Auto) [place] % (Auto) Eos % (Auto) Baso % (Auto) Lymph # (Auto) [place] # (Auto) Eos # (Auto) Baso # (Auto) Immature Gran # Absolute Neutrophils D-Dimer 0.27 POC Sodium POC Potassium POC Chloride POC Total CO2 POC BUN POC Creatinine POC Glucose POC WB Ioniz Calcium Total Bilirubin 0.9 Direct Bilirubin 0.2 AST 25 ALT 14 Alkaline Phosphatase 132 H NT-Pro-B Natriuret Pep 1342.0 H Total Protein 6.9 Albumin 4.1 Globulin 2.8 Ethyl Alcohol mg/dL < 10.0 Ethyl Alcohol g/dL < 0.010 POC Troponin I 04/26/22 04/26/22 04/26/22 20:21 20:15 20:13 WBC 12.6 H RBC 4.68 Hgb 13.1 L Hct 40.0 L POC Hct 42.0 MCV 85.5 MCH 28.0 MCHC 32.8 RDW 13.6 Plt Count 436 MPV 10.5 Immature Gran % (Auto) 0.5 Neut % (Auto) 75.6 Lymph % (Auto) 13.1 L [place] % (Auto) 8.6 Eos % (Auto) 1.3 Baso % (Auto) 0.9 Lymph # (Auto) 1.66 [place] # (Auto) 1.09 H Eos # (Auto) 0.16 Baso # (Auto) 0.11 Immature Gran # 0.06 H Absolute Neutrophils 9.55 H D-Dimer POC Sodium 134 POC Potassium 2.4 L* POC Chloride 93 L POC Total CO2 29.0 POC BUN 12 POC Creatinine 1.4 H POC Glucose 108 H POC WB Ioniz Calcium 1.00 L Total Bilirubin Direct Bilirubin AST ALT Alkaline Phosphatase NT-Pro-B Natriuret Pep Total Protein Albumin Globulin Ethyl Alcohol mg/dL Ethyl Alcohol g/dL POC Troponin I < 0.02 A/P Assessment and plan (1) Delirium tremens: Status: Acute (2) GERD (gastroesophageal reflux disease): Status: Chronic (3) Essential hypertension: Status: Chronic (4) Hypokalemia: Status: Acute Narrative A/P Narrative: Assessment and Plans: 1. Delirium tremens: Inpatient PCU with telemetry CIWA protocol with Ativan, now IV, transition to PO when possible Banana bag X1 Multivitamin, folic acid, Thiamine product managermanager molecular therapy 2. Essential hypertension: Resume home regimen of oral antihypertensives Hydralazine 10mg IV q4-6hr PRN SBP>=180 and/or DBP>=110mmHg 3. Hypokalemia: s/p KCL 40mEq IV once overnight, pending morning CMP Also check serum Mg level and replace if needed 4. GERD: Oral PPI GI ppx: Oral PPI DVT ppx: Lovenox Code status: Full Prognosis: guarded Disposition: inpatient PCU; PT Time Spent With Patient Time: Total time spent is greater than 50% in coordination of care (as documented) at patient's floor/unit and/or counseling patient: Initial: Total time with patient: 55 - 74 minutes QUALITY VTE Deep Vein Thrombosis/Pulmonary Embolism Present on Admission: No
[2022-04-27] MEDS ORDERED: POTASSIUM CHLORIDE 20 MEQ, MAGNESIUM SULFATE 16.24 MEQ, THIAMINE 100 MG, MVI, ADULT NO.... IV SCH (10:00)
[2022-04-27] MEDS ORDERED: ALBUTEROL SULFATE 60 PUFF INHALER INH PRN (10:03)
[2022-04-27] MEDS ORDERED: LOPERAMIDE 2 MG CAPSULE PO PRN (10:03)
[2022-04-27 10:38] LABS: Basophils # (Auto) 0.07 K/mcL (0.00-0.30); Basophils % (Auto) 1.2 % (0.0-2.0); Eosinophils # (Auto) 0.21 K/mcL (0.00-0.70); Eosinophils % (Auto) 3.5 % (0.0-7.0); Hematocrit 35.6 % (40.1-51.0); Hemoglobin 11.8 g/dL (13.7-17.5); Lymphocytes # (Auto) 0.92 K/mcL (1.50-4.80); Lymphocytes % (Auto) 15.2 % (15.5-49.0); Mean Corpuscular HGB Conc 33.1 g/dL (31.0-36.0); Monocytes # (Auto) 0.55 K/mcL (0.10-0.90); Monocytes % (Auto) 9.1 % (1.0-12.0); Neutrophils % (Auto) 70.7 % (38.0-78.0); Platelet Count 262 K/mcL (140-440); RBC 4.14 M/mcL (4.63-6.08); Red Cell Distribution Width 13.7 % (11.5-14.5); WBC 6.1 K/mcL (4.5-11.0)
[2022-04-27 10:52] LABS: ALT/SGPT 12 U/L (<40); AST/SGOT 17 U/L (<40); Albumin 3.7 gm/dL (3.2-5.2); Albumin/Globulin Ratio 1.7 (1.0-2.3); Alkaline Phosphatase 114 U/L (39-117); Bilirubin,Total 0.7 mg/dL (0.1-1.0); Blood Urea Nitrogen 12 mg/dL (8-23); Calcium 8.1 mg/dL (8.6-10.4); Carbon Dioxide 29 mmol/L (22-30); Chloride 96 mmol/L (96-108); Globulin 2.2 gm/dL (2.2-3.7); Glomerular Filtration Rate 65; Glucose 98 mg/dL (70-105)
[2022-04-27] MEDS ORDERED: POTASSIUM CHLORIDE 40 MEQ in DEXTROSE 5% IN WATER 500 ML IV SCH (11:06)
[2022-04-27] MEDS ORDERED: DEXTROMETHORPHAN GUAIFENESIN PO PRN (11:10)
[2022-04-27] MEDS: BACLOFEN 10 MG TABLET PO SCH ×3 (12:19→19:53)
[2022-04-27] MEDS: 0.9 % SODIUM CHLORIDE 10 ML SYRINGE IV SCH ×2 (12:22→20:47)
[2022-04-27] MEDS: hydrOXYzine 25 MG TABLET PO SCH ×2 (15:17→19:53)
[2022-04-27] MEDS: POTASSIUM CHLORIDE 20 MEQ TABLET PO SCH ×2 (16:30→20:45)
[2022-04-27] MEDS: oxyCODONE HCL 5 MG TABLET PO PRN ×2 (16:33→23:37)
[2022-04-27] MEDS: LORazepam 1 MG TABLET PO PRN ×2 (17:19→21:00)
[2022-04-27] MEDS ORDERED: NICOTINE 21 MG PATCH TOPICAL SCH (17:30)
[2022-04-27] MEDS: GABAPENTIN 300 MG CAPSULE PO SCH (19:52)
[2022-04-27] MEDS: LABETALOL 100 MG TABLET PO SCH (19:53)
[2022-04-27] MEDS: DULoxetine 30 MG CAPSULE PO SCH (19:53)
[2022-04-27] MEDS: DOCUSATE SODIUM 100 MG CAPSULE PO SCH (19:53)
[2022-04-27] MEDS: BUDESONIDE 1 PUFF INHALER INH SCH (20:46)
[2022-04-27] MEDS ORDERED: Budesonide-Formoterol [Symbicort] 160-4.5 mcg/act INH SCH (21:00)
[2022-04-27] MEDS ORDERED: SENNOSIDES 1 TABLET PO PRN (21:00)
[2022-04-28] MEDS: LORazepam 1 MG TABLET PO PRN ×3 (02:53→20:40)
[2022-04-28] MEDS: 0.9 % SODIUM CHLORIDE 10 ML SYRINGE IV SCH ×3 (06:02→20:41)
[2022-04-28] MEDS: OMEPRAZOLE 20 MG CAPSULE PO SCH (07:22)
[2022-04-28] MEDS: POTASSIUM CHLORIDE 20 MEQ TABLET PO SCH ×2 (07:22→17:04)
[2022-04-28 07:33] LABS: Basophils # (Auto) 0.08 K/mcL (0.00-0.30); Basophils % (Auto) 0.6 % (0.0-2.0); Eosinophils # (Auto) 0.38 K/mcL (0.00-0.70); Eosinophils % (Auto) 2.6 % (0.0-7.0); Hematocrit 36.6 % (40.1-51.0); Hemoglobin 11.8 g/dL (13.7-17.5); Lymphocytes # (Auto) 1.31 K/mcL (1.50-4.80); Lymphocytes % (Auto) 9.1 % (15.5-49.0); Mean Cell Volume 87.4 fL (80.0-100.0); Mean Corpuscular HGB Conc 32.2 g/dL (31.0-36.0); Mean Platelet Volume 10.4 fL (8.8-12.5); Neutrophils % (Auto) 80.3 % (38.0-78.0); Platelet Count 279 K/mcL (140-440); RBC 4.19 M/mcL (4.63-6.08); Red Cell Distribution Width 13.8 % (11.5-14.5); WBC 14.3 K/mcL (4.5-11.0)
[2022-04-28 08:43] LABS: ALT/SGPT 9 U/L (<40); AST/SGOT 14 U/L (<40); Albumin 3.4 gm/dL (3.2-5.2); Albumin/Globulin Ratio 1.5 (1.0-2.3); Alkaline Phosphatase 104 U/L (39-117); Bilirubin,Total 0.4 mg/dL (0.1-1.0); Blood Urea Nitrogen 12 mg/dL (8-23); Calcium 8.1 mg/dL (8.6-10.4); Carbon Dioxide 23 mmol/L (22-30); Chloride 98 mmol/L (96-108); Globulin 2.2 gm/dL (2.2-3.7); Glomerular Filtration Rate 81; Glucose 90 mg/dL (70-105)
[2022-04-28] MEDS: DOCUSATE SODIUM 100 MG CAPSULE PO SCH ×2 (08:47→20:41)
[2022-04-28] MEDS: hydrOXYzine 25 MG TABLET PO SCH ×3 (08:47→20:40)
[2022-04-28] MEDS: LOSARTAN 50 MG TABLET PO SCH (08:47)
[2022-04-28] MEDS: DULoxetine 30 MG CAPSULE PO SCH ×2 (08:47→20:40)
[2022-04-28] MEDS: MULTIVIT,THER IRON,CA,FA & MIN 1 TABLET PO SCH (08:48)
[2022-04-28] MEDS: BACLOFEN 10 MG TABLET PO SCH ×4 (08:48→20:40)
[2022-04-28] MEDS: FOLIC ACID 1 MG TABLET PO SCH (08:48)
[2022-04-28] MEDS: HYDROCHLOROTHIAZIDE 12.5 MG CAPSULE PO SCH (08:48)
[2022-04-28] MEDS: GABAPENTIN 300 MG CAPSULE PO SCH ×2 (08:48→20:40)
[2022-04-28] MEDS: ENOXAPARIN 40 MG/0.4 ML SYRINGE SQ SCH (08:48)
[2022-04-28] MEDS: THIAMINE 100 MG TABLET PO SCH (08:49)
[2022-04-28] MEDS: LABETALOL 100 MG TABLET PO SCH ×2 (08:49→20:40)
[2022-04-28] MEDS: BUDESONIDE 1 PUFF INHALER INH SCH ×2 (08:50→20:41)
[2022-04-28] MEDS: LIDOCAINE PATCH TOPICAL SCH (10:04)
[2022-04-28] MEDS: NICOTINE 21 MG PATCH TOPICAL SCH (10:04)
--- NOTE | 2022-04-28 15:02 | Internal Med Progress Note ---
SUBJECTIVE Subjective Patient information: Note initiated : 04/28/22 at 2:56 pm Service Date, if different from initiated Date: [] Patient: Chau Salter a 61 y/o M admitted on 04/27/22 for chest pain. Chief Complaint: [] Interval history: Mr. Salter is a 61 year old M history of alcoholism, essential hypertensions, presenting with leg heaviness. Patient presented to the ED last night with chief complaint of leg heaviness. He is also an alcoholic and he stated that he drinks 2 shots of vodka per day but I highly doubt that. His last drink was claimed to be the day before yesterday. Serum alcohol level at ED <0.01. His CIWA score at ED presentation was 17. His CIWA score this morning 5. Remarkable labs including serum potassium level 2.4. Patient denies any insomnia last night. He is complaining of anxiety but denies any agitations. He is showing increased hand tremors. He denies any visual or auditory hallucinations. Admission request called for delirium tremens. 04/28: CIWA score 9 this morning. c/o mild insomnia. c/o anxiety. c/o increased hand tremors. Denies agitation. Denies nausea vomiting. Denies visual or auditory hallucinations. Continue CIWA protocol for delirium tremens. manager stylist to talk to patient reg arding candidacy for alcohol rehab. Physical therapy evaluation and treatment for placement planning. Constitutional Vitals: Vital Signs Temp Pulse Resp BP Pulse Ox O2 Del Method 36.2 C 74 19 141/94 98 Room Air 04/28/22 12:01 04/28/22 13:42 04/28/22 13:42 04/28/22 13:42 04/28/22 13:42 04/28/22 13:42 Period Temp Pulse Resp BP Sys/Erazo Pulse Ox O2 Del Method O2 Flow Rate Last 24 Hr 36.2 C-37.1 C 72-104 13-25 115-183/81-126 93-100 Room Air-Room Air Intake and Output 04/28/22 04/28/22 04/28/22 03:59 11:59 19:59 Intake Total 1745 720 Output Total 875 400 Balance 870 320 Weight 77.882 kg Patient Weight 04/29/22 03:59 Weight 77.882 kg Intake & Output: Intake & Output 04/28/22 04/28/22 04/28/22 03:59 11:59 19:59 Intake Total 1745 720 Output Total 875 400 Balance 870 320 Weight 77.882 kg Intake: IV 1025 Potassium Chloride 20 Meq 1025 Magnesium Sulfate 16.24 Meq Vitamin B1 100 mg Infuvite Adult 10 ml In Sodium Chloride 0.9% 1,000 ml @ 100 mls/hr IV . [id number] [facility] Rx#:[id number] Oral 720 720 Output: Void Amount 875 400 Other: Meal Breakfast Lunch Percent of Meal Consumed 100% 50% Urine Appearance Clear Urine Color Yellow Stool Size Moderate Stool Color Brown Stool Consistency Soft Loose # Bowel Movements 1 Head Head exam: Present atraumatic and normal inspection Eye Eye exam: Present normal appearance ENT ENT exam: Present mucous membranes moist, normal exam and normal external ear exam Neck Neck exam: Present normal inspection Respiratory Respiratory exam: Present normal respiratory exam Cardiovascular Cardiovascular exam: Present normal rate and rhythm GI/Abdominal GI/Abdominal exam: Present normal bowel sounds Back Exam Back exam: Present normal inspection Neurological Exam Neurological exam: Present alert and oriented X3 Additional comments: increased hand tremors. Skin Skin exam: Present intact and warm OBJ DATA Labs 04/28/22 05:57 04/28/22 05:57 Labs: Abnormal Lab Results 04/28/22 04/28/22 04/27/22 05:57 05:57 18:13 WBC 14.3 H RBC 4.19 L Hgb 11.8 L Hct 36.6 L Neut % (Auto) 80.3 H Lymph % (Auto) 9.1 L Lymph # (Auto) 1.31 L [place] # (Auto) 1.00 H Immature Gran # 0.06 H Absolute Neutrophils 11.51 H Sodium 132 L POC Potassium Potassium 3.2 L 3.2 L POC Chloride POC Creatinine POC Glucose Calcium 8.1 L POC WB Ioniz Calcium Alkaline Phosphatase NT-Pro-B Natriuret Pep Total Protein 5.6 L 04/27/22 04/27/22 04/26/22 09:31 09:31 20:21 WBC RBC 4.14 L Hgb 11.8 L Hct 35.6 L Neut % (Auto) Lymph % (Auto) 15.2 L Lymph # (Auto) 0.92 L [place] # (Auto) Immature Gran # Absolute Neutrophils Sodium POC Potassium Potassium 2.5 L* POC Chloride POC Creatinine POC Glucose Calcium 8.1 L POC WB Ioniz Calcium Alkaline Phosphatase 132 H NT-Pro-B Natriuret Pep 1342.0 H Total Protein 04/26/22 04/26/22 20:21 20:15 WBC 12.6 H RBC Hgb 13.1 L Hct 40.0 L Neut % (Auto) Lymph % (Auto) 13.1 L Lymph # (Auto) [place] # (Auto) 1.09 H Immature Gran # 0.06 H Absolute Neutrophils 9.55 H Sodium POC Potassium 2.4 L* Potassium POC Chloride 93 L POC Creatinine 1.4 H POC Glucose 108 H Calcium POC WB Ioniz Calcium 1.00 L Alkaline Phosphatase NT-Pro-B Natriuret Pep Total Protein Meds: Medications Acetaminophen (Acetaminophen 325 Mg Tablet) 650 mg PO Q6HP PRN; Protocol PRN Reason: Per Pain Protocol/Fever > 101 Albuterol Sulfate (Albuterol Sulfate 60 Puff Inhaler) 2 puff INH Q4HP PRN PRN Reason: Wheezing Albuterol/Ipratropium (Ipratropium/Albuterol 3 Ml Ampul.Neb) 3 ml NEB Q4HRT PRN PRN Reason: Wheezing Baclofen (Baclofen 10 Mg Tablet) 10 mg PO QID [facility] Last Admin: 04/28/22 12:31 Dose: 10 mg Budesonide (Budesonide 1 Puff Inhaler) 2 puff INH BID [facility] Last Admin: 04/28/22 08:50 Dose: 1 inh Clonidine HCl (Clonidine Hcl 0.1 Mg Tablet) 0.1 mg PO Q4HP PRN PRN Reason: ALC Last Admin: 04/27/22 19:53 Dose: 0.1 mg Clonidine HCl (Clonidine Tts 1 1 Patch Patch) 1 patch TD Fr [facility] Docusate Sodium (Docusate Sodium 100 Mg Capsule) 100 mg PO BID [facility] Last Admin: 04/28/22 08:47 Dose: 100 mg Duloxetine HCl (Duloxetine 30 Mg Capsule) 60 mg PO BID [facility] Last Admin: 04/28/22 08:47 Dose: 60 mg Enoxaparin Sodium (Enoxaparin 40 Mg/0.4 Ml Syringe) 40 mg SQ DAILY [facility] Last Admin: 04/28/22 08:48 Dose: 40 mg Folic Acid (Folic Acid 1 Mg Tablet) 1 mg PO DAILY [facility] Last Admin: 04/28/22 08:48 Dose: 1 mg Gabapentin (Gabapentin 300 Mg Capsule) 600 mg PO QHS [facility] Last Admin: 04/27/22 19:52 Dose: 600 mg Gabapentin (Gabapentin 300 Mg Capsule) 300 mg PO DAILY [facility] Last Admin: 04/28/22 08:48 Dose: 300 mg Haloperidol Lactate (Haloperidol Lactate 5 Mg/Ml Vial) 0.5 mg IV Q2HP PRN PRN Reason: Alcohol Withdrawal/Assess CIWA Hydralazine HCl (Hydralazine 20 Mg/Ml Vial) 10 mg IV Q4-6HP PRN PRN Reason: Hypertension Hydrochlorothiazide (Hydrochlorothiazide 12.5 Mg Capsule) 12.5 mg PO QAM [facility] Last Admin: 04/28/22 08:48 Dose: 12.5 mg Hydroxyzine HCl (Hydroxyzine 25 Mg Tablet) 25 mg PO TID [facility] Last Admin: 04/28/22 08:47 Dose: 25 mg Iron Carb/Multivit/Plaster Model And Mold Maker/Folic Acid (Multivit,Ther Iron,Ca,Fa & Min 1 Tablet) 1 tab PO DAILY [facility] Last Admin: 04/28/22 08:48 Dose: 1 tab Labetalol HCl (Labetalol 100 Mg Tablet) 100 mg PO BID [facility] Last Admin: 04/28/22 08:49 Dose: 100 mg Lactulose (Lactulose 20 Gm/30 Ml Oral.Nitza) 10 gm PO DAILYP PRN PRN Reason: Constipation Lidocaine (Lidocaine Patch) 1 patch TOPICAL DAILY@1000 [facility] Last Admin: 04/28/22 10:04 Dose: 1 patch Loperamide HCl (Loperamide 2 Mg Capsule) 2 mg PO PRN PRN PRN Reason: Diarrhea Lorazepam (Lorazepam 1 Mg Tablet) 0 mg PO Q4HP PRN; Protocol PRN Reason: Alcohol Withdrawal/Assess CIWA Last Admin: 04/28/22 02:53 Dose: 1 mg Lorazepam (Lorazepam 2 Mg/Ml Vial) 0 mg IV Q1HP PRN; Protocol PRN Reason: Alcohol Withdrawal/Assess CIWA Last Admin: 04/27/22 19:52 Dose: 2 mg Losartan Potassium (Losartan 50 Mg Tablet) 100 mg PO QDAY [facility] Last Admin: 04/28/22 08:47 Dose: 100 mg Nicotine (Nicotine 21 Mg Patch) 21 mg TOPICAL DAILY@1000 [facility] Last Admin: 04/28/22 10:04 Dose: 21 mg Omeprazole (Omeprazole 20 Mg Capsule) 20 mg PO ACB [facility] Last Admin: 04/28/22 07:22 Dose: 20 mg Ondansetron HCl (Ondansetron 4 Mg/2 Ml Vial) 4 mg IV Q4HP PRN; Protocol PRN Reason: Nausea And Vomiting Oxycodone HCl (Oxycodone Hcl 5 Mg Tablet) 10 mg PO TIDP PRN PRN Reason: pain Last Admin: 04/27/22 23:37 Dose: 10 mg Dextromethorphan- Guaifenesin [ Diabetic Tussin Dm] 1 dose PO Q4HP PRN PRN Reason: Cough Potassium Chloride (Potassium Chloride 20 Meq Tablet) 40 meq PO BIDCC [facility] Last Admin: 04/28/22 07:22 Dose: 40 meq Senna (Sennosides 1 Tablet) 2 tab PO HSP PRN PRN Reason: Constipation Sodium Chloride (0.9 % Sodium Chloride 10 Ml Syringe) 10 ml IV Q8 [facility] Last Admin: 04/28/22 13:29 Dose: 10 ml Thiamine HCl (Thiamine 100 Mg Tablet) 100 mg PO QDAY [facility] Last Admin: 04/28/22 08:49 Dose: 100 mg A/P Assessment and plan (1) Delirium tremens: Status: Acute (2) GERD (gastroesophageal reflux disease): Status: Chronic (3) Essential hypertension: Status: Chronic (4) Hypokalemia: Status: Acute Narrative A/P Narrative: Assessment and Plans: 1. Delirium tremens: Inpatient PCU with telemetry CIWA protocol with Ativan, now IV, transition to PO when possible s/p Banana bag X1 Multivitamin, folic acid, Thiamine manager stylist to talk to patient regarding candidacy for alcohol rehab Physical therapy evaluation and treatment for placement planning 2. Essential hypertension: Resume home regimen of oral antihypertensives Hydralazine 10mg IV q4-6hr PRN SBP>=180 and/or DBP>=110mmHg 3. Hypokalemia: s/p KCL 40mEq IV once, now on KCL oral replacement CMP daily to trend serum potassium level Also check serum Mg level and replace if needed 4. GERD: Oral PPI GI ppx: Oral PPI DVT ppx: Lovenox Code status: Full Prognosis: guarded Disposition: inpatient PCU; PT Time Spent With Patient Time: Total time spent is greater than 50% in coordination of care (as documented) at patient's floor/unit and/or counseling patient: Subsequent: Total time with patient: 35 - 49 minutes QUALITY VTE Deep Vein Thrombosis/Pulmonary Embolism Present on Admission: No
[2022-04-28] MEDS: oxyCODONE HCL 5 MG TABLET PO PRN (18:57)
[2022-04-29] MEDS: 0.9 % SODIUM CHLORIDE 10 ML SYRINGE IV SCH ×3 (06:01→20:36)
[2022-04-29 06:41] LABS: Basophils # (Auto) 0.07 K/mcL (0.00-0.30); Eosinophils # (Auto) 0.33 K/mcL (0.00-0.70); Eosinophils % (Auto) 4.7 % (0.0-7.0); Hematocrit 35.5 % (40.1-51.0); Hemoglobin 11.8 g/dL (13.7-17.5); Lymphocytes # (Auto) 1.52 K/mcL (1.50-4.80); Lymphocytes % (Auto) 21.5 % (15.5-49.0); Mean Cell Volume 85.3 fL (80.0-100.0); Mean Corpuscular HGB Conc 33.2 g/dL (31.0-36.0); Mean Platelet Volume 10.5 fL (8.8-12.5); Monocytes # (Auto) 0.55 K/mcL (0.10-0.90); Monocytes % (Auto) 7.8 % (1.0-12.0); Neutrophils % (Auto) 64.7 % (38.0-78.0); Platelet Count 272 K/mcL (140-440); RBC 4.16 M/mcL (4.63-6.08); Red Cell Distribution Width 13.7 % (11.5-14.5); WBC 7.1 K/mcL (4.5-11.0)
[2022-04-29 07:26] LABS: ALT/SGPT 10 U/L (<40); AST/SGOT 13 U/L (<40); Albumin 3.6 gm/dL (3.2-5.2); Albumin/Globulin Ratio 1.6 (1.0-2.3); Alkaline Phosphatase 103 U/L (39-117); Bilirubin,Total 0.4 mg/dL (0.1-1.0); Blood Urea Nitrogen 8 mg/dL (8-23); Calcium 8.3 mg/dL (8.6-10.4); Carbon Dioxide 27 mmol/L (22-30); Chloride 97 mmol/L (96-108); Globulin 2.2 gm/dL (2.2-3.7); Glomerular Filtration Rate 81; Glucose 96 mg/dL (70-105)
[2022-04-29] MEDS: POTASSIUM CHLORIDE 20 MEQ TABLET PO SCH ×2 (07:40→17:33)
[2022-04-29] MEDS: OMEPRAZOLE 20 MG CAPSULE PO SCH (07:40)
[2022-04-29] MEDS ORDERED: MAGNESIUM SULFATE 2 GM/50 ML BAG IV ONE (08:02)
--- NOTE | 2022-04-29 08:04 | Internal Med Progress Note ---
SUBJECTIVE Subjective Patient information: Note initiated : 04/29/22 at 7:59 am Service Date, if different from initiated Date: [] Patient: Chau Salter a 61 y/o M admitted on 04/27/22 for chest pain. Chief Complaint: [] Interval history: Mr. Salter is a 61 year old M history of alcoholism, essential hypertensions, presenting with leg heaviness. Patient presented to the ED last night with chief complaint of leg heaviness. He is also an alcoholic and he stated that he drinks 2 shots of vodka per day but I highly doubt that. His last drink was claimed to be the day before yesterday. Serum alcohol level at ED <0.01. His CIWA score at ED presentation was 17. His CIWA score this morning 5. Remarkable labs including serum potassium level 2.4. Patient denies any insomnia last night. He is complaining of anxiety but denies any agitations. He is showing increased hand tremors. He denies any visual or auditory hallucinations. Admission request called for delirium tremens. 2: CIWA score 9 this morning. c/o mild insomnia. c/o anxiety. c/o increased hand tremors. Denies agitation. Denies nausea vomiting. Denies visual or auditory hallucinations. Continue CIWA protocol for delirium tremens. automation and controls manager to talk to patient reg arding candidacy for alcohol rehab. Physical therapy evaluation and treatment for placement planning. 2: CIWA score between 5-9 overnight and this morning. Denies insomnia. c/o anxiety. c/o increased hand tremors. Denies agitation. Denies nausea vomiting. Denies visual or auditory hallucinations. Transfer from PCU to med surg telemetry. Continue CIWA protocol. Potassium/Magnesium replacements. automation and controls manager to talk to patient regarding candidacy for alcohol rehab. Physical therapy evaluation and treatment for placement planning. Constitutional Vitals: Vital Signs Temp Pulse Resp BP Pulse Ox O2 Del Method 36.8 C 89 15 147/96 96 Room Air 04/29/22 04:01 04/29/22 00:02 04/29/22 06:01 04/29/22 06:01 04/29/22 07:48 04/29/22 07:48 Period Temp Pulse Resp BP Sys/Erazo Pulse Ox O2 Del Method O2 Flow Rate Last 24 Hr 36.1 C-36.8 C 72-110 15-24 131-179/90-119 93-99 Room Air-Room Air Intake and Output 04/28/22 04/29/22 04/29/22 19:59 03:59 11:59 Intake Total 600 700 344 Output Total 1625 1550 Balance -1025 -850 344 Weight 83.189 kg Intake & Output: Intake & Output 04/28/22 04/29/22 04/29/22 19:59 03:59 11:59 Intake Total 600 700 344 Output Total 1627 1550 Balance -1025 -850 344 Weight 83.189 kg Intake: Oral 600 700 344 Output: Void Amount 1620 1550 Other: Meal Lunch Ice-cream Percent of Meal Consumed 100% 100% Feeding Ability Assist with Tray Set Up Independent Urine Appearance Clear Clear Urine Color Pale Pale Urine Odor Normal Head Head exam: Present atraumatic and normal inspection Eye Eye exam: Present normal appearance ENT ENT exam: Present mucous membranes moist, normal exam and normal external ear exam Neck Neck exam: Present normal inspection Respiratory Respiratory exam: Present normal respiratory exam Cardiovascular Cardiovascular exam: Present normal rate and rhythm GI/Abdominal GI/Abdominal exam: Present normal bowel sounds Back Exam Back exam: Present normal inspection Neurological Exam Neurological exam: Present alert and oriented X3 Additional comments: Increased hand tremors Skin Skin exam: Present intact and warm OBJ DATA Labs 04/29/22 05:30 04/29/22 05:30 Labs: Abnormal Lab Results 04/29/22 04/29/22 04/28/22 05:30 05:30 05:57 WBC RBC 4.16 L Hgb 11.8 L Hct 35.5 L Neut % (Auto) Lymph % (Auto) Lymph # (Auto) [place] # (Auto) Immature Gran # Absolute Neutrophils Sodium 132 L POC Potassium Potassium 2.9 L* 3.2 L POC Chloride POC Creatinine POC Glucose Calcium 8.3 L 8.1 L POC WB Ioniz Calcium Magnesium 1.4 L Alkaline Phosphatase NT-Pro-B Natriuret Pep Total Protein 5.8 L 5.6 L 04/28/22 04/27/22 04/27/22 05:57 18:13 09:31 WBC 14.3 H RBC 4.19 L Hgb 11.8 L Hct 36.6 L Neut % (Auto) 80.3 H Lymph % (Auto) 9.1 L Lymph # (Auto) 1.31 L [place] # (Auto) 1.00 H Immature Gran # 0.06 H Absolute Neutrophils 11.51 H Sodium POC Potassium Potassium 3.2 L 2.5 L* POC Chloride POC Creatinine POC Glucose Calcium 8.1 L POC WB Ioniz Calcium Magnesium Alkaline Phosphatase NT-Pro-B Natriuret Pep Total Protein 04/27/22 04/26/22 04/26/22 09:31 20:21 20:21 WBC 12.6 H RBC 4.14 L Hgb 11.8 L 13.1 L Hct 35.6 L 40.0 L Neut % (Auto) Lymph % (Auto) 15.2 L 13.1 L Lymph # (Auto) 0.92 L [place] # (Auto) 1.09 H Immature Gran # 0.06 H Absolute Neutrophils 9.55 H Sodium POC Potassium Potassium POC Chloride POC Creatinine POC Glucose Calcium POC WB Ioniz Calcium Magnesium Alkaline Phosphatase 132 H NT-Pro-B Natriuret Pep 1342.0 H Total Protein 04/26/22 20:15 WBC RBC Hgb Hct Neut % (Auto) Lymph % (Auto) Lymph # (Auto) [place] # (Auto) Immature Gran # Absolute Neutrophils Sodium POC Potassium 2.4 L* Potassium POC Chloride 93 L POC Creatinine 1.4 H POC Glucose 108 H Calcium POC WB Ioniz Calcium 1.00 L Magnesium Alkaline Phosphatase NT-Pro-B Natriuret Pep Total Protein Meds: Medications Acetaminophen (Acetaminophen 325 Mg Tablet) 650 mg PO Q6HP PRN; Protocol PRN Reason: Per Pain Protocol/Fever > 101 Albuterol Sulfate (Albuterol Sulfate 60 Puff Inhaler) 2 puff INH Q4HP PRN PRN Reason: Wheezing Albuterol/Ipratropium (Ipratropium/Albuterol 3 Ml Ampul.Neb) 3 ml NEB Q4HRT PRN PRN Reason: Wheezing Baclofen (Baclofen 10 Mg Tablet) 10 mg PO QID [facility]AN[facility] Last Admin: 04/28/22 20:40 Dose: 10 mg Budesonide (Budesonide 1 Puff Inhaler) 2 puff INH BID [facility] Last Admin: 04/28/22 20:41 Dose: 2 inh Clonidine HCl (Clonidine Hcl 0.1 Mg Tablet) 0.1 mg PO Q4HP PRN PRN Reason: ALC Last Admin: 04/27/22 19:53 Dose: 0.1 mg Clonidine HCl (Clonidine Tts 1 1 Patch Patch) 1 patch TD Fr [facility] Docusate Sodium (Docusate Sodium 100 Mg Capsule) 100 mg PO BID [facility] Last Admin: 04/28/22 20:41 Dose: 100 mg Duloxetine HCl (Duloxetine 30 Mg Capsule) 60 mg PO BID [facility] Last Admin: 04/28/22 20:40 Dose: 60 mg Enoxaparin Sodium (Enoxaparin 40 Mg/0.4 Ml Syringe) 40 mg SQ DAILY [facility] Last Admin: 04/28/22 08:48 Dose: 40 mg Folic Acid (Folic Acid 1 Mg Tablet) 1 mg PO DAILY [facility] Last Admin: 04/28/22 08:48 Dose: 1 mg Gabapentin (Gabapentin 300 Mg Capsule) 600 mg PO QHS [facility] Last Admin: 04/28/22 20:40 Dose: 600 mg Gabapentin (Gabapentin 300 Mg Capsule) 300 mg PO DAILY [facility] Last Admin: 04/28/22 08:48 Dose: 300 mg Haloperidol Lactate (Haloperidol Lactate 5 Mg/Ml Vial) 0.5 mg IV Q2HP PRN PRN Reason: Alcohol Withdrawal/Assess CIWA Hydralazine HCl (Hydralazine 20 Mg/Ml Vial) 10 mg IV Q4-6HP PRN PRN Reason: Hypertension Hydrochlorothiazide (Hydrochlorothiazide 12.5 Mg Capsule) 12.5 mg PO QAM [facility] Last Admin: 04/28/22 08:48 Dose: 12.5 mg Hydroxyzine HCl (Hydroxyzine 25 Mg Tablet) 25 mg PO TID [facility] Last Admin: 04/28/22 20:40 Dose: 25 mg Iron Carb/Multivit/[place]/Folic Acid (Multivit,Ther Iron,Ca,Fa & Min 1 Tablet) 1 tab PO DAILY [facility] Last Admin: 04/28/22 08:48 Dose: 1 tab Labetalol HCl (Labetalol 100 Mg Tablet) 100 mg PO BID [facility] Last Admin: 04/28/22 20:40 Dose: 100 mg Lactulose (Lactulose 20 Gm/30 Ml Oral.Nitza) 10 gm PO DAILYP PRN PRN Reason: Constipation Lidocaine (Lidocaine Patch) 1 patch TOPICAL DAILY@1000 [facility] Last Admin: 04/28/22 10:04 Dose: 1 patch Loperamide HCl (Loperamide 2 Mg Capsule) 2 mg PO PRN PRN PRN Reason: Diarrhea Lorazepam (Lorazepam 1 Mg Tablet) 0 mg PO Q4HP PRN; Protocol PRN Reason: Alcohol Withdrawal/Assess [facility] Last Admin: 04/28/22 20:40 Dose: 2 mg Lorazepam (Lorazepam 2 Mg/Ml Vial) 0 mg IV Q1HP PRN; Protocol PRN Reason: Alcohol Withdrawal/Assess [facility] Last Admin: 04/27/22 19:52 Dose: 2 mg Losartan Potassium (Losartan 50 Mg Tablet) 100 mg PO QDAY [facility] Last Admin: 04/28/22 08:47 Dose: 100 mg Nicotine (Nicotine 21 Mg Patch) 21 mg TOPICAL DAILY@1000 [facility] Last Admin: 04/28/22 10:04 Dose: 21 mg Omeprazole (Omeprazole 20 Mg Capsule) 20 mg PO ACB [facility] Last Admin: 04/29/22 07:40 Dose: 20 mg Ondansetron HCl (Ondansetron 4 Mg/2 Ml Vial) 4 mg IV Q4HP PRN; Protocol PRN Reason: Nausea And Vomiting Oxycodone HCl (Oxycodone Hcl 5 Mg Tablet) 10 mg PO TIDP PRN PRN Reason: pain Last Admin: 04/28/22 18:57 Dose: 10 mg Dextromethorphan- Guaifenesin [ Diabetic Tussin Dm] 1 dose PO Q4HP PRN PRN Reason: Cough Potassium Chloride (Potassium Chloride 20 Meq Tablet) 40 meq PO BIDCC [facility] Last Admin: 04/29/22 07:40 Dose: 40 meq Senna (Sennosides 1 Tablet) 2 tab PO HSP PRN PRN Reason: Constipation Sodium Chloride (0.9 % Sodium Chloride 10 Ml Syringe) 10 ml IV Q8 [facility] Last Admin: 04/29/22 06:01 Dose: 10 ml Thiamine HCl (Thiamine 100 Mg Tablet) 100 mg PO QDAY [facility] Last Admin: 04/28/22 08:49 Dose: 100 mg A/P Assessment and plan (1) Delirium tremens: Status: Acute (2) GERD (gastroesophageal reflux disease): Status: Chronic (3) Essential hypertension: Status: Chronic (4) Hypokalemia: Status: Acute (5) Hypomagnesemia: Status: Acute Narrative A/P Narrative: Assessment and Plans: 1. Delirium tremens: Inpatient PCU with telemetry [facility] protocol with Ativan, now IV, transition to PO when possible s/p Banana bag X1 Multivitamin, folic acid, Thiamine automation and controls manager to talk to patient regarding candidacy for alcohol rehab Physical therapy evaluation and treatment for placement planning 2. Essential hypertension: Resume home regimen of oral antihypertensives Hydralazine 10mg IV q4-6hr PRN SBP>=180 and/or DBP>=110mmHg 3. Hypokalemia/Hypomagnesemia: KCL oral replacement Repeat serum potassium level this PM to trend Also give MgSO4 2gm IV once, and trend serum Mg level daily 4. GERD: Oral PPI GI ppx: Oral PPI DVT ppx: Lovenox Code status: DNR Prognosis: Stable Disposition: inpatient med surg; PT Time Spent With Patient Time: Total time spent is greater than 50% in coordination of care (as documented) at patient's floor/unit and/or counseling patient: Subsequent: Total time with patient: 35 - 49 minutes QUALITY VTE Deep Vein Thrombosis/Pulmonary Embolism Present on Admission: No
[2022-04-29] MEDS: hydrOXYzine 25 MG TABLET PO SCH ×3 (09:36→20:34)
[2022-04-29] MEDS: LOSARTAN 50 MG TABLET PO SCH (09:37)
[2022-04-29] MEDS: DULoxetine 30 MG CAPSULE PO SCH ×2 (09:37→20:33)
[2022-04-29] MEDS: FOLIC ACID 1 MG TABLET PO SCH (09:37)
[2022-04-29] MEDS: DOCUSATE SODIUM 100 MG CAPSULE PO SCH ×2 (09:37→20:46)
[2022-04-29] MEDS: ENOXAPARIN 40 MG/0.4 ML SYRINGE SQ SCH (09:38)
[2022-04-29] MEDS: HYDROCHLOROTHIAZIDE 12.5 MG CAPSULE PO SCH (09:38)
[2022-04-29] MEDS: MULTIVIT,THER IRON,CA,FA & MIN 1 TABLET PO SCH (09:38)
[2022-04-29] MEDS: GABAPENTIN 300 MG CAPSULE PO SCH ×2 (09:38→20:32)
[2022-04-29] MEDS: BACLOFEN 10 MG TABLET PO SCH ×4 (09:38→20:34)
[2022-04-29] MEDS: LABETALOL 100 MG TABLET PO SCH ×2 (09:38→20:33)
[2022-04-29] MEDS: LIDOCAINE PATCH TOPICAL SCH (09:39)
[2022-04-29] MEDS: THIAMINE 100 MG TABLET PO SCH (09:39)
[2022-04-29] MEDS: NICOTINE 21 MG PATCH TOPICAL SCH (09:39)
[2022-04-29] MEDS: BUDESONIDE 1 PUFF INHALER INH SCH ×2 (11:53→20:37)
--- NOTE | 2022-04-29 13:59 | Internal Med Progress Note ---
SUBJECTIVE Subjective Patient information: Note initiated : 04/29/22 at 1:57 pm Service Date, if different from initiated Date: [] Patient: Chau Salter a 61 y/o M admitted on 04/27/22 for chest pain. Chief Complaint: [] Interval history: Mr. Salter is a 61 year old M history of alcoholism, essential hypertensions, presenting with leg heaviness. Patient presented to the ED last night with chief complaint of leg heaviness. He is also an alcoholic and he stated that he drinks 2 shots of vodka per day but I highly doubt that. His last drink was claimed to be the day before yesterday. Serum alcohol level at ED <0.01. His CIWA score at ED presentation was 17. His CIWA score this morning 5. Remarkable labs including serum potassium level 2.4. Patient denies any insomnia last night. He is complaining of anxiety but denies any agitations. He is showing increased hand tremors. He denies any visual or auditory hallucinations. Admission request called for delirium tremens. 2: CIWA score 9 this morning. c/o mild insomnia. c/o anxiety. c/o increased hand tremors. Denies agitation. Denies nausea vomiting. Denies visual or auditory hallucinations. Continue CIWA protocol for delirium tremens. residential mortgage manager to talk to patient reg arding candidacy for alcohol rehab. Physical therapy evaluation and treatment for placement planning. 2: CIWA score between 5-9 overnight and this morning. Denies insomnia. c/o anxiety. c/o increased hand tremors. Denies agitation. Denies nausea vomiting. Denies visual or auditory hallucinations. Transfer from PCU to med surg telemetry. Continue CIWA protocol. Potassium/Magnesium replacements. residential mortgage manager to talk to patient regarding candidacy for alcohol rehab. Physical therapy evaluation and treatment for placement planning. Constitutional Vitals: Vital Signs Temp Pulse Resp BP Pulse Ox O2 Del Method 98.5 F 86 16 142/99 98 Room Air 04/29/22 12:00 04/29/22 10:01 04/29/22 12:00 04/29/22 12:00 04/29/22 12:00 04/29/22 08:00 Period Temp Pulse Resp BP Sys/Erazo Pulse Ox O2 Del Method O2 Flow Rate Last 24 Hr 97.0 F-98.5 F 77-110 13-24 131-179/93-119 94-99 Room Air-Room Air Intake and Output 04/29/22 04/29/22 04/29/22 03:59 11:59 19:59 Intake Total 700 594 540 Output Total 1550 Balance -850 594 540 Intake & Output: Intake & Output 04/29/22 04/29/22 04/29/22 03:59 11:59 19:59 Intake Total 700 594 540 Output Total 1550 Balance -850 594 540 Intake: IV 50 Oral 700 544 540 Output: Void Amount 1550 Other: Meal Ice-cream Breakfast Lunch Percent of Meal Consumed 100% 100% Feeding Ability Independent Independent Independent Urine Appearance Clear Urine Color Pale Exam: General: Alert, Awake, No acute Distress Eyes/N/T: EOMI Head/Neck: neck supple, CV: RRR, No murmurs, Pulm: Clear b/l, no wheezing/rhonchi/rales Abd: soft, nontender, +BS x4 Ext: no clubbing/cyanosis/edema Neuro: Alert, no focal deficits, moves all extremities, Skin: warm/dry OBJ DATA Labs 04/29/22 05:30 04/29/22 05:30 Labs: Abnormal Lab Results 04/29/22 04/29/22 04/28/22 05:30 05:30 05:57 WBC RBC 4.16 L Hgb 11.8 L Hct 35.5 L Neut % (Auto) Lymph % (Auto) Lymph # (Auto) [place] # (Auto) Immature Gran # Absolute Neutrophils Sodium 132 L POC Potassium Potassium 2.9 L* 3.2 L POC Chloride POC Creatinine POC Glucose Calcium 8.3 L 8.1 L POC WB Ioniz Calcium Magnesium 1.4 L Alkaline Phosphatase NT-Pro-B Natriuret Pep Total Protein 5.8 L 5.6 L 04/28/22 04/27/22 04/27/22 05:57 18:13 09:31 WBC 14.3 H RBC 4.19 L Hgb 11.8 L Hct 36.6 L Neut % (Auto) 80.3 H Lymph % (Auto) 9.1 L Lymph # (Auto) 1.31 L [place] # (Auto) 1.00 H Immature Gran # 0.06 H Absolute Neutrophils 11.51 H Sodium POC Potassium Potassium 3.2 L 2.5 L* POC Chloride POC Creatinine POC Glucose Calcium 8.1 L POC WB Ioniz Calcium Magnesium Alkaline Phosphatase NT-Pro-B Natriuret Pep Total Protein 04/27/22 04/26/22 04/26/22 09:31 20:21 20:21 WBC 12.6 H RBC 4.14 L Hgb 11.8 L 13.1 L Hct 35.6 L 40.0 L Neut % (Auto) Lymph % (Auto) 15.2 L 13.1 L Lymph # (Auto) 0.92 L [place] # (Auto) 1.09 H Immature Gran # 0.06 H Absolute Neutrophils 9.55 H Sodium POC Potassium Potassium POC Chloride POC Creatinine POC Glucose Calcium POC WB Ioniz Calcium Magnesium Alkaline Phosphatase 132 H NT-Pro-B Natriuret Pep 1342.0 H Total Protein 04/26/22 20:15 WBC RBC Hgb Hct Neut % (Auto) Lymph % (Auto) Lymph # (Auto) [place] # (Auto) Immature Gran # Absolute Neutrophils Sodium POC Potassium 2.4 L* Potassium POC Chloride 93 L POC Creatinine 1.4 H POC Glucose 108 H Calcium POC WB Ioniz Calcium 1.00 L Magnesium Alkaline Phosphatase NT-Pro-B Natriuret Pep Total Protein Meds: Medications Acetaminophen (Acetaminophen 325 Mg Tablet) 650 mg PO Q6HP PRN; Protocol PRN Reason: Per Pain Protocol/Fever > 101 Last Admin: 04/29/22 08:28 Dose: 650 mg Albuterol Sulfate (Albuterol Sulfate 60 Puff Inhaler) 2 puff INH Q4HP PRN PRN Reason: Wheezing Albuterol/Ipratropium (Ipratropium/Albuterol 3 Ml Ampul.Neb) 3 ml NEB Q4HRT PRN PRN Reason: Wheezing Baclofen (Baclofen 10 Mg Tablet) 10 mg PO QID [facility] Last Admin: 04/29/22 13:36 Dose: 10 mg Budesonide (Budesonide 1 Puff Inhaler) 2 puff INH BID [facility] Last Admin: 04/29/22 11:53 Dose: Not Given Clonidine HCl (Clonidine Hcl 0.1 Mg Tablet) 0.1 mg PO Q4HP PRN PRN Reason: ALC Last Admin: 04/27/22 19:53 Dose: 0.1 mg Clonidine HCl (Clonidine Tts 1 1 Patch Patch) 1 patch TD Fr [facility] Docusate Sodium (Docusate Sodium 100 Mg Capsule) 100 mg PO BID [facility] Last Admin: 04/29/22 09:37 Dose: 100 mg Duloxetine HCl (Duloxetine 30 Mg Capsule) 60 mg PO BID [facility] Last Admin: 04/29/22 09:37 Dose: 60 mg Enoxaparin Sodium (Enoxaparin 40 Mg/0.4 Ml Syringe) 40 mg SQ DAILY [facility] Last Admin: 04/29/22 09:38 Dose: 40 mg Folic Acid (Folic Acid 1 Mg Tablet) 1 mg PO DAILY [facility] Last Admin: 04/29/22 09:37 Dose: 1 mg Gabapentin (Gabapentin 300 Mg Capsule) 600 mg PO QHS [facility] Last Admin: 04/28/22 20:40 Dose: 600 mg Gabapentin (Gabapentin 300 Mg Capsule) 300 mg PO DAILY [facility] Last Admin: 04/29/22 09:38 Dose: 300 mg Haloperidol Lactate (Haloperidol Lactate 5 Mg/Ml Vial) 0.5 mg IV Q2HP PRN PRN Reason: Alcohol Withdrawal/Assess CIWA Hydralazine HCl (Hydralazine 20 Mg/Ml Vial) 10 mg IV Q4-6HP PRN PRN Reason: Hypertension Hydrochlorothiazide (Hydrochlorothiazide 12.5 Mg Capsule) 12.5 mg PO QAM [facility] Last Admin: 04/29/22 09:38 Dose: 12.5 mg Hydroxyzine HCl (Hydroxyzine 25 Mg Tablet) 25 mg PO TID [facility] Last Admin: 04/29/22 09:36 Dose: 25 mg Iron Carb/Multivit/Respiratory Director/Folic Acid (Multivit,Ther Iron,Ca,Fa & Min 1 Tablet) 1 tab PO DAILY [facility] Last Admin: 04/29/22 09:38 Dose: 1 tab Labetalol HCl (Labetalol 100 Mg Tablet) 100 mg PO BID [facility] Last Admin: 04/29/22 09:38 Dose: 100 mg Lactulose (Lactulose 20 Gm/30 Ml Oral.Nitza) 10 gm PO DAILYP PRN PRN Reason: Constipation Lidocaine (Lidocaine Patch) 1 patch TOPICAL DAILY@1000 [facility] Last Admin: 04/29/22 09:39 Dose: 1 patch Loperamide HCl (Loperamide 2 Mg Capsule) 2 mg PO PRN PRN PRN Reason: Diarrhea Lorazepam (Lorazepam 1 Mg Tablet) 0 mg PO Q4HP PRN; Protocol PRN Reason: Alcohol Withdrawal/Assess CIWA Last Admin: 02/01/23 20:40 Dose: 2 mg Lorazepam (Lorazepam 2 Mg/Ml Vial) 0 mg IV Q1HP PRN; Protocol PRN Reason: Alcohol Withdrawal/Assess [facility] Last Admin: 04/27/22 19:52 Dose: 2 mg Losartan Potassium (Losartan 50 Mg Tablet) 100 mg PO QDAY [facility] Last Admin: 04/29/22 09:37 Dose: 100 mg Nicotine (Nicotine 21 Mg Patch) 21 mg TOPICAL DAILY@1000 [facility] Last Admin: 04/29/22 09:39 Dose: 21 mg Omeprazole (Omeprazole 20 Mg Capsule) 20 mg PO ACB [facility] Last Admin: 04/29/22 07:40 Dose: 20 mg Ondansetron HCl (Ondansetron 4 Mg/2 Ml Vial) 4 mg IV Q4HP PRN; Protocol PRN Reason: Nausea And Vomiting Oxycodone HCl (Oxycodone Hcl 5 Mg Tablet) 10 mg PO TIDP PRN PRN Reason: pain Last Admin: 04/28/22 18:57 Dose: 10 mg Dextromethorphan- Guaifenesin [ Diabetic Tussin Dm] 1 dose PO Q4HP PRN PRN Reason: Cough Potassium Chloride (Potassium Chloride 20 Meq Tablet) 40 meq PO BIDCC [facility] Last Admin: 04/29/22 07:40 Dose: 40 meq Senna (Sennosides 1 Tablet) 2 tab PO HSP PRN PRN Reason: Constipation Sodium Chloride (0.9 % Sodium Chloride 10 Ml Syringe) 10 ml IV Q8 [facility] Last Admin: 04/29/22 13:37 Dose: 10 ml Thiamine HCl (Thiamine 100 Mg Tablet) 100 mg PO QDAY [facility] Last Admin: 04/29/22 09:39 Dose: 100 mg A/P Narrative A/P Narrative: Assessment and Plans: *ETOH w/d with Delirium tremens: -[facility] protocol with Ativan, now IV, transition to PO when possible -s/p Banana bag X1 ; Multivitamin, folic acid, Thiamine -residential mortgage manager to talk to patient regarding candidacy for alcohol rehab *HTN: -Resume home clonidine/ARB/BB/HCTZ, prn IV *Hypokalemia/Hypomagnesemia: - replacement, Repeat serum levels and trend *GERD: Oral PPI *Anemia, chronic: *Generalized weakness/deconditioning: Physical therapy evaluation and treatment for placement planning *ppx: Lovenox Code status: DNR Time Spent With Patient Time: Total time spent is greater than 50% in coordination of care (as documented) at patient's floor/unit and/or counseling patient: QUALITY VTE Deep Vein Thrombosis/Pulmonary Embolism Present on Admission: No
[2022-04-29] MEDS: oxyCODONE HCL 5 MG TABLET PO PRN (17:38)
[2022-04-29] MEDS: hydrALAZINE 20 MG/ML VIAL IV PRN (23:05)
[2022-04-29] MEDS: LORazepam 1 MG TABLET PO PRN (23:06)
[2022-04-30] MEDS: oxyCODONE HCL 5 MG TABLET PO PRN ×3 (04:13→20:06)
[2022-04-30] MEDS: OMEPRAZOLE 20 MG CAPSULE PO SCH (07:09)
[2022-04-30] MEDS: POTASSIUM CHLORIDE 20 MEQ TABLET PO SCH ×2 (07:10→16:17)
[2022-04-30] MEDS: 0.9 % SODIUM CHLORIDE 10 ML SYRINGE IV SCH ×3 (07:25→21:32)
[2022-04-30] MEDS ORDERED: chlordiazePOXIDE 25 MG CAPSULE PO PRN (07:37)
--- NOTE | 2022-04-30 07:40 | Internal Med Progress Note ---
SUBJECTIVE Subjective Patient information: Note initiated : 04/30/22 at 7:36 am Service Date, if different from initiated Date: [] Patient: Chau Salter a 61 y/o M admitted on 04/27/22 for chest pain. Chief Complaint: [] Interval history: Mr. Salter is a 61 year old M history of alcoholism, essential hypertensions, presenting with leg heaviness. Patient presented to the ED last night with chief complaint of leg heaviness. He is also an alcoholic and he stated that he drinks 2 shots of vodka per day but I highly doubt that. His last drink was claimed to be the day before yesterday. Serum alcohol level at ED <0.01. His CIWA score at ED presentation was 17. His CIWA score this morning 5. Remarkable labs including serum potassium level 2.4. Patient denies any insomnia last night. He is complaining of anxiety but denies any agitations. He is showing increased hand tremors. He denies any visual or auditory hallucinations. Admission request called for delirium tremens. 2/: CIWA score 9 this morning. c/o mild insomnia. c/o anxiety. c/o increased hand tremors. Denies agitation. Denies nausea vomiting. Denies visual or auditory hallucinations. Continue CIWA protocol for delirium tremens. instrumentation manager to talk to patient reg arding candidacy for alcohol rehab. Physical therapy evaluation and treatment for placement planning. 2/2: CIWA score between 5-9 overnight and this morning. Denies insomnia. c/o anxiety. c/o increased hand tremors. Denies agitation. Denies nausea vomiting. Denies visual or auditory hallucinations. Transfer from PCU to med surg telemetry. Continue CIWA protocol. Potassium/Magnesium replacements. instrumentation manager to talk to patient regarding candidacy for alcohol rehab. Physical therapy evaluation and treatment for placement planning. 2/3 Given Ativan last night for elevated CIWA score. Mildly tacky. Leukocytosis resolved. Mild hyponatremia, D/c hydrochlorothiazide. Hypokalemia improved. Review of Systems: denies headache/fever/chills/nausea/vomiting/chest or abdominal pain/cough/dy spnea/diarrhea. Otherwise see above. Constitutional Vitals: Vital Signs Temp Pulse Resp BP Pulse Ox O2 Del Method O2 Flow Rate 98.1 F 101 H 16 165/66 96 Room Air 95 04/30/22 07:10 04/30/22 07:10 04/30/22 07:10 04/30/22 07:10 04/30/22 07:10 04/30/22 07:10 04/30/22 04:00 Period Temp Pulse Resp BP Sys/Erazo Pulse Ox O2 Del Method O2 Flow Rate Last 24 Hr 97.9 F-98.9 F 80-110 13-18 141-187/66-117 94-99 Room Air-Room Air 95 Intake and Output 04/29/22 04/30/22 04/30/22 19:59 03:59 11:59 Intake Total 1540 240 Output Total 800 300 Balance 740 240 -300 Weight 83.915 kg Intake & Output: Intake & Output 04/29/22 04/30/22 04/30/22 19:59 03:59 11:59 Intake Total 1540 240 Output Total 800 300 Balance 740 240 -300 Weight 83.915 kg Intake: Oral 1540 240 Output: Void Amount 475 300 Urine/Stool Mix 325 Other: Meal Lunch Percent of Meal Consumed 100% Feeding Ability Independent Independent Urine Appearance Clear Clear Urine Color Bright Yellow Yellow Urine Odor Normal Stool Size Large Stool Color Brown Stool Consistency Soft # Voids 1 Exam: General: Alert, Awake, No acute Distress Eyes/N/T: EOMI Head/Neck: neck supple, CV: RRR, No murmurs, Pulm: Clear b/l, no wheezing/rhonchi/rales Abd: soft, nontender, +BS x4 Ext: no clubbing/cyanosis/edema Neuro: Alert, no focal deficits, moves all extremities, Skin: warm/dry OBJ DATA Labs 04/29/22 05:30 04/29/22 15:04 Labs: Abnormal Lab Results 04/29/22 04/29/22 04/28/22 05:30 05:30 05:57 WBC RBC 4.16 L Hgb 11.8 L Hct 35.5 L Neut % (Auto) Lymph % (Auto) Lymph # (Auto) [place] # (Auto) Immature Gran # Absolute Neutrophils Sodium 132 L Potassium 2.9 L* 3.2 L Calcium 8.3 L 8.1 L Magnesium 1.4 L Total Protein 5.8 L 5.6 L 04/28/22 04/27/22 04/27/22 05:57 18:13 09:31 WBC 14.3 H RBC 4.19 L Hgb 11.8 L Hct 36.6 L Neut % (Auto) 80.3 H Lymph % (Auto) 9.1 L Lymph # (Auto) 1.31 L [place] # (Auto) 1.00 H Immature Gran # 0.06 H Absolute Neutrophils 11.51 H Sodium Potassium 3.2 L 2.5 L* Calcium 8.1 L Magnesium Total Protein 04/27/22 09:31 WBC RBC 4.14 L Hgb 11.8 L Hct 35.6 L Neut % (Auto) Lymph % (Auto) 15.2 L Lymph # (Auto) 0.92 L [place] # (Auto) Immature Gran # Absolute Neutrophils Sodium Potassium Calcium Magnesium Total Protein Meds: Medications Acetaminophen (Acetaminophen 325 Mg Tablet) 650 mg PO Q6HP PRN; Protocol PRN Reason: Per Pain Protocol/Fever > 101 Last Admin: 04/29/22 08:28 Dose: 650 mg Albuterol Sulfate (Albuterol Sulfate 60 Puff Inhaler) 2 puff INH Q4HP PRN PRN Reason: Wheezing Albuterol/Ipratropium (Ipratropium/Albuterol 3 Ml Ampul.Neb) 3 ml NEB Q4HRT PRN PRN Reason: Wheezing Baclofen (Baclofen 10 Mg Tablet) 10 mg PO QID [facility] Last Admin: 04/29/22 20:34 Dose: 10 mg Budesonide (Budesonide 1 Puff Inhaler) 2 puff INH BID [facility] Last Admin: 04/29/22 20:37 Dose: 2 inh Clonidine HCl (Clonidine Hcl 0.1 Mg Tablet) 0.1 mg PO Q4HP PRN PRN Reason: ALC Last Admin: 04/27/22 19:53 Dose: 0.1 mg Clonidine HCl (Clonidine Tts 1 1 Patch Patch) 1 patch TD Fr [facility] Docusate Sodium (Docusate Sodium 100 Mg Capsule) 100 mg PO BID [facility] Last Admin: 04/29/22 20:46 Dose: Not Given Duloxetine HCl (Duloxetine 30 Mg Capsule) 60 mg PO BID [facility] Last Admin: 04/29/22 20:33 Dose: 60 mg Enoxaparin Sodium (Enoxaparin 40 Mg/0.4 Ml Syringe) 40 mg SQ DAILY [facility] Last Admin: 04/29/22 09:38 Dose: 40 mg Folic Acid (Folic Acid 1 Mg Tablet) 1 mg PO DAILY [facility] Last Admin: 04/29/22 09:37 Dose: 1 mg Gabapentin (Gabapentin 300 Mg Capsule) 600 mg PO QHS [facility] Last Admin: 04/29/22 20:32 Dose: 600 mg Gabapentin (Gabapentin 300 Mg Capsule) 300 mg PO DAILY [facility] Last Admin: 04/29/22 09:38 Dose: 300 mg Haloperidol Lactate (Haloperidol Lactate 5 Mg/Ml Vial) 0.5 mg IV Q2HP PRN PRN Reason: Alcohol Withdrawal/Assess CIWA Hydralazine HCl (Hydralazine 20 Mg/Ml Vial) 10 mg IV Q4-6HP PRN PRN Reason: Hypertension Last Admin: 04/29/22 23:05 Dose: 10 mg Hydrochlorothiazide (Hydrochlorothiazide 12.5 Mg Capsule) 12.5 mg PO QAM [facility] Last Admin: 04/29/22 09:38 Dose: 12.5 mg Hydroxyzine HCl (Hydroxyzine 25 Mg Tablet) 25 mg PO TID [facility] Last Admin: 04/29/22 20:34 Dose: 25 mg Iron Carb/Multivit/[place]/Folic Acid (Multivit,Ther Iron,Ca,Fa & Min 1 Tablet) 1 tab PO DAILY [facility] Last Admin: 04/29/22 09:38 Dose: 1 tab Labetalol HCl (Labetalol 100 Mg Tablet) 100 mg PO BID [facility] Last Admin: 04/29/22 20:33 Dose: 100 mg Lactulose (Lactulose 20 Gm/30 Ml Oral.Nitza) 10 gm PO DAILYP PRN PRN Reason: Constipation Lidocaine (Lidocaine Patch) 1 patch TOPICAL DAILY@1000 [facility] Last Admin: 04/29/22 09:39 Dose: 1 patch Loperamide HCl (Loperamide 2 Mg Capsule) 2 mg PO PRN PRN PRN Reason: Diarrhea Lorazepam (Lorazepam 1 Mg Tablet) 0 mg PO Q4HP PRN; Protocol PRN Reason: Alcohol Withdrawal/Assess CIWA Last Admin: 04/29/22 23:06 Dose: 2 mg Lorazepam (Lorazepam 2 Mg/Ml Vial) 0 mg IV Q1HP PRN; Protocol PRN Reason: Alcohol Withdrawal/Assess CIWA Last Admin: 04/27/22 19:52 Dose: 2 mg Losartan Potassium (Losartan 50 Mg Tablet) 100 mg PO QDAY [facility] Last Admin: 04/29/22 09:37 Dose: 100 mg Nicotine (Nicotine 21 Mg Patch) 21 mg TOPICAL DAILY@1000 [facility] Last Admin: 04/29/22 09:39 Dose: 21 mg Omeprazole (Omeprazole 20 Mg Capsule) 20 mg PO ACB [facility] Last Admin: 04/30/22 07:09 Dose: 20 mg Ondansetron HCl (Ondansetron 4 Mg/2 Ml Vial) 4 mg IV Q4HP PRN; Protocol PRN Reason: Nausea And Vomiting Oxycodone HCl (Oxycodone Hcl 5 Mg Tablet) 10 mg PO TIDP PRN PRN Reason: pain Last Admin: 04/30/22 04:13 Dose: 10 mg Dextromethorphan- Guaifenesin [ Diabetic Tussin Dm] 1 dose PO Q4HP PRN PRN Reason: Cough Potassium Chloride (Potassium Chloride 20 Meq Tablet) 40 meq PO BIDCC [facility] Last Admin: 04/30/22 07:10 Dose: 40 meq Senna (Sennosides 1 Tablet) 2 tab PO HSP PRN PRN Reason: Constipation Sodium Chloride (0.9 % Sodium Chloride 10 Ml Syringe) 10 ml IV Q8 [facility] Last Admin: 04/30/22 07:25 Dose: 10 ml Thiamine HCl (Thiamine 100 Mg Tablet) 100 mg PO QDAY [facility] Last Admin: 04/29/22 09:39 Dose: 100 mg A/P Narrative A/P Narrative: Assessment and Plans: *ETOH w/d with Delirium tremens: -CIWA protocol with Ativan, now IV, transition to PO when possible -s/p Banana bag X1 ; Multivitamin, folic acid, Thiamine -instrumentation manager to talk to patient regarding candidacy for alcohol rehab *HTN: -Resume home clonidine/ARB/BB, prn IV. d/c home hctz for hyponatremia *Hypokalemia/Hypomagnesemia/hyponatremia: -replacement, Repeat serum levels and trend -d/c hctz for low Na *GERD: Oral PPI *Anemia, chronic: *Generalized weakness/deconditioning: Physical therapy evaluation and treatment for placement planning *ppx: Lovenox Code status: DNR Time Spent With Patient Time: Total time spent is greater than 50% in coordination of care (as documented) at patient's floor/unit and/or counseling patient: Subsequent: Total time with patient: 50 - 65 Minutes QUALITY VTE Deep Vein Thrombosis/Pulmonary Embolism Present on Admission: No
[2022-04-30] MEDS: NICOTINE 21 MG PATCH TOPICAL SCH (08:03)
[2022-04-30] MEDS: ENOXAPARIN 40 MG/0.4 ML SYRINGE SQ SCH (08:03)
[2022-04-30] MEDS: LIDOCAINE PATCH TOPICAL SCH (08:04)
[2022-04-30] MEDS: LOSARTAN 50 MG TABLET PO SCH (08:04)
[2022-04-30] MEDS: DULoxetine 30 MG CAPSULE PO SCH ×2 (08:05→20:07)
[2022-04-30] MEDS: DOCUSATE SODIUM 100 MG CAPSULE PO SCH ×2 (08:06→20:07)
[2022-04-30] MEDS: MULTIVIT,THER IRON,CA,FA & MIN 1 TABLET PO SCH (08:06)
[2022-04-30] MEDS: GABAPENTIN 300 MG CAPSULE PO SCH ×2 (08:06→20:07)
[2022-04-30] MEDS: FOLIC ACID 1 MG TABLET PO SCH (08:07)
[2022-04-30] MEDS: LABETALOL 100 MG TABLET PO SCH ×2 (08:07→20:06)
[2022-04-30] MEDS: hydrOXYzine 25 MG TABLET PO SCH ×3 (08:07→20:06)
[2022-04-30] MEDS: THIAMINE 100 MG TABLET PO SCH (08:07)
[2022-04-30] MEDS: HYDROCHLOROTHIAZIDE 12.5 MG CAPSULE PO SCH (08:08)
[2022-04-30] MEDS: BACLOFEN 10 MG TABLET PO SCH ×4 (08:08→20:07)
[2022-04-30] MEDS: BUDESONIDE 1 PUFF INHALER INH SCH ×2 (08:18→21:33)
[2022-04-30 09:01] LABS: ALT/SGPT 11 U/L (<40); AST/SGOT 13 U/L (<40); Albumin 3.8 gm/dL (3.2-5.2); Albumin/Globulin Ratio 1.5 (1.0-2.3); Alkaline Phosphatase 105 U/L (39-117); Bilirubin,Direct < 0.2 mg/dL (0-0.3); Bilirubin,Total 0.4 mg/dL (0.1-1.0); Blood Urea Nitrogen 9 mg/dL (8-23); Calcium 8.8 mg/dL (8.6-10.4); Carbon Dioxide 26 mmol/L (22-30); Chloride 95 mmol/L (96-108); Globulin 2.5 gm/dL (2.2-3.7); Glomerular Filtration Rate 81; Glucose 98 mg/dL (70-105); Lactate Dehydrogenase 174 U/L (135-225); Phosphorous 3.4 mg/dL (2.5-4.5); Triglycerides 77 mg/dL (<150); Uric Acid 4.7 mg/dL (2.5-8.0)
[2022-04-30] MEDS ORDERED: cloNIDine TTS 1 1 PATCH PATCH TD SCH (10:00)
--- NOTE | 2022-04-30 13:50 | Discharge Summary ---
Discharge Provider Provider IMPORTANT FOLLOW-UP INFORMATION FOR PCP: -hctz stopped for hyponatremia -Pt to monitor blood pressure twice daily, keep log and give to PCP on next appointment. Patient information: Note initiated : 04/30/22 at 1:49 pm Service Date, if different from initiated Date: [] Patient: Chau Salter 61 y/o M admitted on 04/27/22 for chest pain. Chief Complaint: [] Date of admission: 04/27/22 00:42 Discharge date: 05/01/22 Primary care physician: PCP No Consults: 04/26/22 Consult to Physician [CONS] Stat Comment: Consulting Provider: Binu Kumar Reason For Exam: Physician to Consult COURSE Hospital Course Hospital course: Interval history: Mr. Salter is a 61 year old M history of alcoholism, essential hypertensions, presenting with leg heaviness. Patient presented to the ED last night with chief complaint of leg heaviness. He is also an alcoholic and he stated that he drinks 2 shots of vodka per day but I highly doubt that. His last drink was claimed to be the day before yesterday. Serum alcohol level at ED <0.01. His CIWA score at ED presentation was 17. His CIWA score this morning 5. Remarkable labs including serum potassium level 2.4. Patient denies any insomnia last night. He is complaining of anxiety but denies any agitations. He is showing increased hand tremors. He denies any visual or auditory hallucinations. Admission request called for delirium tremens. 2/: CIWA score 9 this morning. c/o mild insomnia. c/o anxiety. c/o increased hand tremors. Denies agitation. Denies nausea vomiting. Denies visual or auditory hallucinations. Continue CIWA protocol for delirium tremens. sales team manager to talk to patient regarding candidacy for alcohol rehab. Physical therapy evaluation and treatment for placement planning. 2/2: CIWA score between 5-9 overnight and this morning. Denies insomnia. c/o anxiety. c/o increased hand tremors. Denies agitation. Denies nausea vomiting. Denies visual or auditory hallucinations. Transfer from PCU to med surg telemetry. Continue CIWA protocol. Potassium/Magnesium replacements. sales team manager to talk to patient regarding candidacy for alcohol rehab. Physical therapy evaluation and treatment for placement planning. 2/3 Given Ativan last night for elevated CIWA score. Mildly tacky. Leukocytosis resolved. Mild hyponatremia, D/c hydrochlorothiazide. Hypokalemia improved. / Patient doing well. Stable for discharge. Did not require Ativan last night. Assessment and Plans: *ETOH w/d with Delirium tremens: *HTN: -d/c home hctz for hyponatremia *Hypokalemia/Hypomagnesemia/hyponatremia: *GERD: *Anemia, chronic: *Generalized weakness/deconditioning: Discharge diagnosis: Alcohol withdrawal with DTs electrolyte imbalance Secondary discharge diagnosis: Hypertension GERD chronic anemia weakness Time Spent with Patient Time attestation: Total time spent providing and/or coordinating discharge services: Time spent: Greater than 30 minutes EXAM Constitutional Vitals: Temp Pulse Resp BP Pulse Ox O2 Del Method O2 Flow Rate 98.2 F 82 16 145/100 98 Room Air 95 04/30/22 11:55 04/30/22 11:55 04/30/22 11:55 04/30/22 11:55 04/30/22 11:55 04/30/22 11:55 04/30/22 04:00 Discharge Data Data Completed and Pending Labs on day of discharge: Labs from last 24 hours 04/30/22 04/29/22 06:25 15:04 Sodium 132 L Potassium 3.7 3.7 Chloride 95 L Carbon Dioxide 26 Anion Gap 11.0 BUN 9 Creatinine 1.0 GFR Calculation 81 Glucose 98 Uric Acid 4.7 Calcium 8.8 Phosphorus 3.4 Magnesium 1.6 Total Bilirubin 0.4 Direct Bilirubin < 0.2 GGT 24 AST 13 ALT 11 Alkaline Phosphatase 105 Lactate Dehydrogenase 174 Total Protein 6.3 Albumin 3.8 Globulin 2.5 Albumin/Globulin Ratio 1.5 Triglycerides 77 Discharge Plan Patient/Caregiver Discharge Instructions Activity: increase activity as tolerated Diet: Regular Diet Activity Restrictions/Additional Instructions: Follow-up with PCP in 3 to 7 days. Monitor blood pressure twice daily, keep log and give to PCP on next appointment. Prescriptions: Continued oxycodone 10 mg tablet 10 mg PO TID PRN (Reason: pain) Qty: 90 0RF naloxone [Narcan] 4 mg/actuation spray,non-aerosol 4 mg intranasal Q2-3M PRN (Reason: opioid overdose) Qty: 2 0RF Rx Instructions: spray 1 dose into ONE nostril; alternate nostrils w each dose gabapentin 300 MG capsule 300 mg PO DAILY Rx Instructions: 300mg QAM and 600mg QHS duloxetine [Cymbalta] 60 mg capsule,delayed release(DR/EC) 60 mg PO BID clonidine 0.1 mg/24 hr patch weekly 1 patch transdermal WEEKLY Rx Instructions: Apply on Fridays baclofen 10 mg tablet 1 tab PO QID hydroxyzine HCl 25 mg tablet 1 tab PO TID testosterone cypionate 200 mg/mL oil 0.5 ml IM WEEKLY labetalol 100 mg tablet 1 tab PO BID ondansetron 4 mg tablet,disintegrating 1 tab PO Q6HP PRN (Reason: Nausea) irbesartan 300 mg tablet 1 tab PO QDAY esomeprazole magnesium 40 mg capsule,delayed release(DR/EC) 1 cap PO QDAY gabapentin 300 mg Capsule 600 mg PO QHS albuterol sulfate 90 mcg/actuation HFA aerosol inhaler 2 puff INHALATION Q4HP PRN (Reason: Wheezing) budesonide-formoterol [Symbicort] 160-4.5 mcg/actuation HFA aerosol inhaler 2 puff INHALATION BID dextromethorphan-guaifenesin [Diabetic Tussin DM] 10-100 mg/5 mL Liquid 10 ml PO Q4HP PRN (Reason: Cough) Qty: 500 1RF loperamide 2 mg Capsule 2 mg PO PRN PRN (Reason: Diarrhea) Qty: 20 0RF lidocaine 5 % Adhesive Patch,Medicated 1 patch topical DAILY@1000 Qty: 10 0RF folic acid 1 mg Tablet 1 mg PO DAILY Qty: 30 0RF thiamine mononitrate (vit B1) 100 mg Tablet 100 mg PO QDAY Qty: 30 0RF hydrochlorothiazide 12.5 mg tablet 12.5 mg PO QAM Follow Up Plan Patient Disposition: Home, Self-Care Prognosis: Undetermined Overall status at discharge: patient is progressing back to baseline Discharge Orders: Discharge Order (Routine); Ordered 05/01/22 Ordered By: Shant QUEZADA VTE Deep Vein Thrombosis/Pulmonary Embolism Present on Admission: No
[2022-05-01] MEDS: hydrALAZINE 20 MG/ML VIAL IV PRN (04:45)
[2022-05-01] MEDS: POTASSIUM CHLORIDE 20 MEQ TABLET PO SCH (07:30)
[2022-05-01] MEDS: OMEPRAZOLE 20 MG CAPSULE PO SCH (07:30)
[2022-05-01] MEDS: oxyCODONE HCL 5 MG TABLET PO PRN ×2 (07:36→12:17)
[2022-05-01] MEDS: 0.9 % SODIUM CHLORIDE 10 ML SYRINGE IV SCH (07:38)
[2022-05-01] MEDS: DULoxetine 30 MG CAPSULE PO SCH (08:46)
[2022-05-01] MEDS: LABETALOL 100 MG TABLET PO SCH (08:46)
[2022-05-01] MEDS: hydrOXYzine 25 MG TABLET PO SCH (08:47)
[2022-05-01] MEDS: GABAPENTIN 300 MG CAPSULE PO SCH (08:47)
[2022-05-01] MEDS: BACLOFEN 10 MG TABLET PO SCH (08:47)
[2022-05-01] MEDS: DOCUSATE SODIUM 100 MG CAPSULE PO SCH (08:47)
[2022-05-01] MEDS: LOSARTAN 50 MG TABLET PO SCH (08:48)
[2022-05-01] MEDS: FOLIC ACID 1 MG TABLET PO SCH (08:48)
[2022-05-01] MEDS: MULTIVIT,THER IRON,CA,FA & MIN 1 TABLET PO SCH (08:48)
[2022-05-01] MEDS: ENOXAPARIN 40 MG/0.4 ML SYRINGE SQ SCH (08:48)
[2022-05-01] MEDS: THIAMINE 100 MG TABLET PO SCH (08:48)
[2022-05-01] MEDS: NICOTINE 21 MG PATCH TOPICAL SCH (09:26)
[2022-05-01] MEDS: LIDOCAINE PATCH TOPICAL SCH (12:03)
[2022-05-01] MEDS: BUDESONIDE 1 PUFF INHALER INH SCH (12:06)
== END 2022-05-01 11:25 | disposition home or self-care (01) | DRG 897 ==
LOC: ED 20:05 → ICU 04-27 00:42 → MEDSUR 04-29 17:50
PROVIDERS: ADMIT Internal Medicine; ATTEND Internal Medicine